=== PATIENT | female | born 1955 | race Caucasian/White ===

== ENCOUNTER 2016-11-27 19:29 | Emergency (ER) | payer MEDICAID ==
--- NOTE | 2016-11-27 20:22 | EDM.PDOC ---
ED HPI GI/ABDOMINAL - General Chief Complaint: Abdominal Pain Stated Complaint: LEFT SIDE PAIN Time Seen by Provider: 11/27/16 19:45 Source of Information: Reports: Patient History Limitations: Reports: No limitations - History of Present Illness INITIAL COMMENTS - FREE TEXT/NARRATIVE: Shraddha is a 61yo female presents ambulatory to ER [facility] with worsening LUQ and LLQ abdominal pain x 3-4 days. She has been moving boxes into her apartment the past week; been lifting, carrying. She feels more pain when she is up and walking and with standing upright. She has hx of kidney stones. Denies flank pain, urinary problems such as dysuria, hematuria, frequency or urgency. No f/c/ s, n/v/d. States she has 1-2 BM's daily with last being this morning. She has good and "usual" appetite. States she drinks "lots of water and tea" throughout the day. No hx of PUD, gerd, diverticulitis/osis or other GI problems. She has hx of fibromyalgia and does smoke cigarettes, 1/2 pack per day. Timing/Duration: Reports: Day(s): (2-3) Location: LLQ Quality: Reports: cramping, stabbing Severity: moderate Improves with: Reports: lying down Worsens with: Reports: other (walking, moving around) Context: Reports: lifting (? has been moving into apartment the last 5 days; more lifting, pushing and carrying than usual) Associated Symptoms (-Female): Reports: loss of appetite. 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 SURGEON: Reports: Other (see below) (None) - Related Data Allergies/ADRs: Allergies Allergy/AdvReac Type Severity Reaction Status Date / Time codeine Allergy Hives Verified 05/10/16 13:53 Penicillins Allergy Hives Verified 05/10/16 13:53 Home Meds: Home Meds Nitroglycerin [Nitrostat] 0.4 mg SL ASDIRECTED PRN 02/28/15 [History] Albuterol [Ventolin 2 MG/5 ML] 1 - 2 puff INH Q4H PRN 05/10/15 [History] ClonazePAM [KlonoPIN] 1 mg PO BID 05/10/15 [History] Omeprazole 20 mg PO DAILY 05/10/15 [History] Sertraline [Zoloft] 100 mg PO DAILY 05/08/16 [History] Cyclobenzaprine [Flexeril] 10 mg PO DAILY PRN 11/27/16 [History] Past Medical History HEENT History: Reports: Impaired vision Other HEENT History: hole in sinus, wears contacts. Cardiovascular History: Reports: Other (see below) Other Cardiovascular History: states has NTG available for chest pain, no other cardiac Hx. 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 OB/BYN History: Pelvic surgery--hole in pelvic bone Musculoskeletal History: Reports: Fibromyalgia Psychiatric History: Reports: Anxiety - Infectious Disease History Infectious Disease History: Reports: Hepatitis C - Past Surgical History Female Surgical History: Reports: Tubal ligation Musculoskeletal Surgical History: Reports: Other (see below) Other Musculoskeletal Surgeries/Procedures:: scoliosis Social & Family History - Family History Family Medical History: Noncontributory - Tobacco Use Smoking Status *Q: Current Every Day Smoker Years of Tobacco use: 30 Packs/Tins Daily: 1 Used Tobacco, but Quit: No Second Hand Smoke Exposure: Yes - Caffeine Use Caffeine Use: Reports: Coffee - Recreational Drug Use Recreational Drug Use: Yes Drug Use in Last 12 Months: No Recreational Drug Type: Reports: Marijuana/Hashish Recreational Drug Use Frequency: Socially Recreational Drug Last Use: 04/19/16 - Living Situation & Occupation Living situation: Reports: , with spouse ED ROS GENERAL - Review of Systems Review Of Systems: See Below Constitutional: Reports: no symptoms HEENT: Reports: No symptoms Respiratory: Reports: No Symptoms. Denies: Shortness of Breath, Cough Cardiovascular: Reports: No symptoms. Denies: Chest pain, Dyspnea on exertion, Palpitations GI/Abdominal: Reports: Abdominal pain, Decreased appetite, Distension, Other ( last BM was this morning; sharp intermittent pains worse when she is up and moving around). Denies: Black stool, Bloody stool, Constipation, Diarrhea, Hematemesis, Hematochezia, Melena, Mucous in stool, Nausea, Stool incontinence, Vomiting : Reports: no symptoms, other (hx of kidney stones). Denies: dysuria, flank pain, frequency, hematuria, urgency Musculoskeletal: Reports: no symptoms Neurological: Reports: No Symptoms ED EXAM, GI/ABD - Physical Exam Exam: See Below Exam Limited By: No limitations General Appearance: alert, WD/WN, no apparent distress Eyes: bilateral: EOMI Ears: normal external exam, hearing grossly normal Nose: normal inspection Throat/Mouth: Normal inspection, Normal lips, Normal teeth, Normal voice Head: atraumatic, normocephalic Neck: normal inspection, supple Respiratory/Chest: no respiratory distress, lungs clear, normal breath sounds ( decreased to bases) Cardiovascular: regular rate, rhythm, no edema, no murmur GI/Abdominal: no organomegaly, no mass, hypoactive bowel sounds, tenderness ( diffuse, worse to LUQ and LLQ), distention (worse to left side). No: guarding, rebound, rigidity, hepatomegaly, splenomegaly (Female) Exam: Deferred Rectal (Female) Exam: Deferred Back Exam: normal inspection. No: CVA tenderness (L), CVA tenderness (R), paraspinal tenderness, vertebral tenderness Extremities: normal inspection, no pedal edema, normal capillary refill Neurological: alert, oriented, CN II-XII intact, normal cognition Psychiatric: normal affect, normal mood Skin Exam: Warm, Dry, Intact, Normal color Course - Vital Signs Last Recorded V/S: Last Vital Signs Temp 98.3 F 11/27/16 19:39 Pulse 95 11/27/16 19:39 Resp 18 11/27/16 19:39 BP 152/81 H 11/27/16 19:39 Pulse Ox 95 11/27/16 19:39 - Orders/Labs/Meds Orders: Active Orders 24 hr Category Date Time Status Abdomen 2V AP Flat Upright [CR] Stat Exams 11/27/16 21:24 Taken Labs: Laboratory Tests 11/27/16 11/27/16 11/27/16 Range/Units 19:55 19:55 20:50 WBC 8.41 (3.98-10.04) K/mm3 RBC 4.28 (3.98-5.22) M/mm3 Hgb 12.7 (11.2-15.7) gm/L Hct 36.1 (34.1-44.9) % MCV 84.3 (79.4-94.8) fl MCH 29.7 (25.6-32.2) pg MCHC 35.2 (32.2-35.5) g/dl RDW Std Deviation 47.2 H (36.4-46.3) fL Plt Count 161 L (182-369) K/mm3 MPV 10.6 (9.4-12.3) fl Neut % (Auto) 60.9 (34.0-71.1) % Lymph % (Auto) 27.2 (19.3-51.7) % [place] % (Auto) 7.5 (4.7-12.5) % Eos % (Auto) 3.2 (0.7-5.8) Baso % (Auto) 0.8 (0.1-1.2) % Neut # (Auto) 5.12 (1.56-6.13) K/mm3 Lymph # (Auto) 2.29 (1.18-3.74) K/mm3 [place] # (Auto) 0.63 H (0.24-0.36) K/mm3 Eos # (Auto) 0.27 (0.04-0.36) K/mm3 Baso # (Auto) 0.07 (0.01-0.08) K/mm3 Sodium 142 (136-145) mEq/L Potassium 4.1 (3.5-5.1) mEq/L Chloride 106 (98-107) mEq/L Carbon Dioxide 26 (21-32) mEq/L Anion Gap 14.1 (5-15) BUN 17 (7-18) mg/dL Creatinine 1.0 (0.55-1.02) mg/dL Est Cr Clr Drug Dosing 43.51 mL/min Estimated GFR (MDRD) 57 (>60) mL/min BUN/Creatinine Ratio 17.0 (14-18) Glucose 137 H (74-106) mg/dL Calcium 9.4 (8.5-10.1) mg/dL Total Bilirubin 0.2 (0.2-1.0) mg/dL AST 7 L (15-37) U/L ALT 15 (14-59) U/L Alkaline Phosphatase 109 (46-116) U/L Total Protein 7.6 (6.4-8.2) g/dl Albumin 4.0 (3.4-5.0) g/dl Globulin 3.6 gm/dL Albumin/Globulin Ratio 1.1 (1-2) Urine Color Light yellow (Yellow) Urine Appearance Clear (Clear) Urine pH 5.5 (5.0-8.0) Ur Specific [place] > or = 1.030 (1.005-1.030) Urine Protein Negative (Negative) Urine Glucose (UA) Negative (Negative) Urine Ketones Negative (Negative) Urine Occult Blood Negative (Negative) Urine Nitrite Negative (Negative) Urine Bilirubin Negative (Negative) Urine Urobilinogen 0.2 (0.2-1.0) Ur Leukocyte Esterase Trace H (Negative) Urine RBC 0-5 (0-5) /hpf Urine WBC 5-10 H (0-5) /hpf Ur Epithelial Cells 0-5 (0-5) /hpf Urine Bacteria Few (FEW) /hpf Urine Mucus Not seen (FEW) /hpf Meds: Medications Discontinued Medications Generic Name Dose Route Start Last Admin Trade Name Freq PRN Reason Stop Dose Admin Ketorolac Tromethamine 30 mg 11/27/16 22:13 Toradol IVPUSH 11/27/16 22:14 ONETIME ONE Metoclopramide HCl 10 mg 11/27/16 22:13 Reglan IVPUSH 11/27/16 22:14 ONETIME ONE - Radiology Interpretation Free Text/Narrative:: 2 view of abdomen obtained: review shows increased stool throughout entire colon , most pronounced to left colon. Consistent with constipation. Will await [facility] final report. - Re-Assessments/Exams Free Text/Narrative Re-Assessment/Exam: 11/27/16 22:25 Reviewed all labs- essentially normal and xray findings with patient and . Reviewed POC for tx of constipation. Will culture urine but patient is asymptomatic so elect no treatment at this time. Departure - Departure Time of Disposition: 22:14 Disposition: Home, Self-Care 01 Condition: good Clinical Impression: Constipation Qualifiers: Constipation type: unspecified constipation type Qualified Code(s): K59.00 - Constipation, unspecified Abdominal pain Qualifiers: Abdominal location: left lower quadrant Qualified Code(s): R10.32 - Left lower quadrant pain Instructions: Constipation, Adult, [id number], Abdominal Pain, Adult, Easy-to -Read Referrals: Omayra Weston PL[facility]ER [Primary Care Provider] - Forms: ED Department Discharge Additional Instructions: Use dulcolax daily to twice daily for constipation Push fluids Increase fiber in your diet Exercise/walking can be helpful for constipation Can use milk of magnesia if needed for constipation also Follow up with PCP, SUSANA Clifton if not improving or worsening - My Orders Last 24 Hours: My Active Orders 11/27/16 21:24 Abdomen 2V AP Flat Upright [CR] Stat - Assessment/Plan Last 24 Hours: My Active Orders 11/27/16 21:24 Abdomen 2V AP Flat Upright [CR] Stat
[2016-11-27] MEDS ORDERED: Metoclopramide 10 MG/2 ML SDV IVPUSH ONE (22:13)
[2016-11-27] MEDS ORDERED: Ketorolac 30 MG/ML SDV IVPUSH ONE (22:13)
[2016-11-27 22:38] VITALS: BP 122/68
--- NOTE | 2016-11-29 06:52 | CR ---
Abdomen: Supine and upright views of the abdomen were obtained. Comparison: No previous abdominal x-ray. Mild scoliosis is present within the spine. Slight increased stool seen throughout the colon. Bowel gas pattern is otherwise unremarkable. No free air is seen. No abnormal calcifications are seen. Mild vascular calcification noted within the iliac vessels. Impression: 1. Mild increased stool within the colon. Other incidental findings. Diagnostic code #2
== END 2016-11-27 22:30 | disposition home or self-care (01) ==
LOC: JD.ED 19:29
DX: K59.00 Constipation, unspecified (principal); J44.9 Chronic obstructive pulmonary disease, unspecified; K21.9 Gastro-esophageal reflux disease without esophagitis; F41.9 Anxiety disorder, unspecified; Z79.899 Other long term (current) drug therapy; F17.210 Nicotine dependence, cigarettes, uncomplicated; Z88.0 Allergy status to penicillin; Z88.5 Allergy status to narcotic agent
CPT/HCPCS: 36415; 74020; 80053; 81001; 85025; 87086; 96374; 96375; 99284; J1885; J2765

== ENCOUNTER 2016-12-03 10:35 | Emergency (ER) | payer MEDICAID ==
[2016-12-03 10:45] VITALS: BP 122/81
--- NOTE | 2016-12-03 11:19 | EDM.PDOC ---
ED HPI GI/ABDOMINAL - General Chief Complaint: Abdominal Pain Stated Complaint: L SIDE ABDOMINAL PAIN Time Seen by Provider: 12/03/16 11:18 Source of Information: Reports: Patient - History of Present Illness INITIAL COMMENTS - FREE TEXT/NARRATIVE: Patient here today for persistent LUQ pain. Denies N/V/D. She was evaluated last week and diagnosed with constipation per her report. She has been on stool softeners and had normal BM, last one was this am and soft/normal. She has been more physically active lately as well, they recently moved. - Related Data Allergies/ADRs: Allergies Allergy/AdvReac Type Severity Reaction Status Date / Time codeine Allergy Hives Verified 12/03/16 10:41 Penicillins Allergy Hives Verified 12/03/16 10:41 Home Meds: Home Meds Nitroglycerin [Nitrostat] 0.4 mg SL ASDIRECTED PRN 02/28/15 [History] Albuterol [Ventolin 2 MG/5 ML] 1 - 2 puff INH Q4H PRN 05/10/15 [History] ClonazePAM [KlonoPIN] 1 mg PO BID 05/10/15 [History] Omeprazole 20 mg PO DAILY 05/10/15 [History] Sertraline [Zoloft] 100 mg PO DAILY 05/08/16 [History] Cyclobenzaprine [Flexeril] 10 mg PO DAILY PRN 11/27/16 [History] Hydrocodone/Acetaminophen [Hydrocodon-Acetaminophen 5-325] 1 each PO Q6HR PRN # 20 tablet 12/03/16 [Rx] Past Medical History HEENT History: Reports: Impaired vision Other HEENT History: hole in sinus, wears contacts. Cardiovascular History: Reports: Other (see below) Other Cardiovascular History: states has NTG available for chest pain, no other cardiac Hx. 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 OB/BYN History: Pelvic surgery--hole in pelvic bone Musculoskeletal History: Reports: Fibromyalgia Psychiatric History: Reports: Anxiety - Infectious Disease History Infectious Disease History: Reports: Hepatitis C - Past Surgical History Female Surgical History: Reports: Tubal ligation Musculoskeletal Surgical History: Reports: Other (see below) Other Musculoskeletal Surgeries/Procedures:: scoliosis Social & Family History - Family History Family Medical History: Noncontributory - Tobacco Use Smoking Status *Q: Current Every Day Smoker Years of Tobacco use: 30 Packs/Tins Daily: 1 Used Tobacco, but Quit: No Second Hand Smoke Exposure: Yes - Caffeine Use Caffeine Use: Reports: Coffee - Recreational Drug Use Recreational Drug Use: Yes Drug Use in Last 12 Months: No Recreational Drug Type: Reports: Marijuana/Hashish Recreational Drug Use Frequency: Socially Recreational Drug Last Use: 04/19/16 - Living Situation & Occupation Living situation: Reports: , with spouse ED ROS GENERAL - Review of Systems Review Of Systems: See Below Constitutional: Reports: no symptoms Respiratory: Reports: No Symptoms Cardiovascular: Reports: No symptoms GI/Abdominal: Reports: Abdominal pain, Flatus. Denies: Constipation, Diarrhea, Decreased appetite, Hematemesis, Hematochezia, Melena Musculoskeletal: Reports: other (left rib pain) ED EXAM, GI/ABD - Physical Exam Exam: See Below Exam Limited By: No limitations General Appearance: alert, WD/WN, no apparent distress Ears: normal external exam, normal canal, normal TMs Throat/Mouth: Normal inspection, Normal oropharynx Neck: normal inspection Respiratory/Chest: no respiratory distress, lungs clear, normal breath sounds, other (Tenderness (mild) to left lower ribs/flank.) Cardiovascular: regular rate, rhythm, no murmur GI/Abdominal: normal bowel sounds, soft, other (Moderate epigastric and left abdominal pain.) Neurological: alert, oriented Psychiatric: normal affect, normal mood Skin Exam: Warm, Dry, Intact Course - Vital Signs Last Recorded V/S: Last Vital Signs Temp 98.5 F 12/03/16 10:42 Pulse 78 12/03/16 10:42 Resp 18 12/03/16 10:42 BP 122/81 12/03/16 10:42 Pulse Ox 96 12/03/16 10:42 - Orders/Labs/Meds Orders: Active Orders 24 hr Category Date Time Status Chest 2V [CR] Stat Exams 12/03/16 13:56 Taken Sodium Chloride 0.9% [Normal Saline] 1,000 ml Med 12/03/16 11:32 Active IV ONETIME Sodium Chloride 0.9% [Saline Flush] Med 12/03/16 14:38 Active 10 ml FLUSH ONETIME PRN Medication Orders Sodium Chloride (Normal Saline) 1,000 mls @ 150 mls/hr IV ONETIME ONE Stop: 12/03/16 18:11 Last Admin: 12/03/16 12:21 Dose: 150 mls/hr Sodium Chloride (Saline Flush) 10 ml FLUSH ONETIME PRN PRN Reason: IV FLUSH Last Admin: 12/03/16 15:22 Dose: 10 ml Admin: 12/03/16 15:00 Dose: 10 ml Labs: Laboratory Tests 12/03/16 12/03/16 12/03/16 Range/Units 11:20 12:30 12:30 WBC 10.62 H (3.98-10.04) K/mm3 RBC 5.09 (3.98-5.22) M/mm3 Hgb 15.0 (11.2-15.7) gm/L Hct 43.8 (34.1-44.9) % MCV 86.1 (79.4-94.8) fl MCH 29.5 (25.6-32.2) pg MCHC 34.2 (32.2-35.5) g/dl RDW Std Deviation 50.4 H (36.4-46.3) fL Plt Count 99 L (182-369) K/mm3 MPV 10.3 (9.4-12.3) fl Neutrophils % (Manual) 83 H (40-60) % Band Neutrophils % 0 (0-10) % Lymphocytes % (Manual) 14 L (20-40) % Atypical Lymphs % 0 % Monocytes % (Manual) 2 (2-10) % Eosinophils % (Manual) 1 (0.7-5.8) % Basophils % (Manual) 0 L (0.1-1.2) Platelet Estimate Decreased Plt Morphology Comment See note RBC Morph Comment Normal Sodium 136 (136-145) mEq/L Potassium 4.5 (3.5-5.1) mEq/L Chloride 101 (98-107) mEq/L Carbon Dioxide 27 (21-32) mEq/L Anion Gap 12.5 (5-15) BUN 16 (7-18) mg/dL Creatinine 0.9 (0.55-1.02) mg/dL Est Cr Clr Drug Dosing TNP Estimated GFR (MDRD) > 60 (>60) mL/min BUN/Creatinine Ratio 17.8 (14-18) Glucose 100 (74-106) mg/dL Calcium 9.7 (8.5-10.1) mg/dL Total Bilirubin 0.6 (0.2-1.0) mg/dL AST 15 (15-37) U/L ALT 17 (14-59) U/L Alkaline Phosphatase 102 (46-116) U/L Troponin I < 0.017 (0.00-0.056) ng/mL C-Reactive Protein 0.4 (<1.0) mg/dL Total Protein 8.5 H (6.4-8.2) g/dl Albumin 4.6 (3.4-5.0) g/dl Globulin 3.9 gm/dL Albumin/Globulin Ratio 1.2 (1-2) Lipase 109 (73-393) U/L Urine Color Yellow (Yellow) Urine Appearance Clear (Clear) Urine pH 6.0 (5.0-8.0) Ur Specific [place] 1.020 (1.005-1.030) Urine Protein Negative (Negative) Urine Glucose (UA) Negative (Negative) Urine Ketones Negative (Negative) Urine Occult Blood Negative (Negative) Urine Nitrite Negative (Negative) Urine Bilirubin Negative (Negative) Urine Urobilinogen 0.2 (0.2-1.0) Ur Leukocyte Esterase Trace H (Negative) Urine RBC 0-5 (0-5) /hpf Urine WBC 5-10 H (0-5) /hpf Ur Squamous Epith Cells 0-5 (0-5) /hpf Urine Bacteria Few (FEW) /hpf Urine Mucus Not seen (FEW) /hpf Meds: Medications Generic Name Dose Route Start Last Admin Trade Name Freq PRN Reason Stop Dose Admin Sodium Chloride 1,000 mls @ 150 mls/hr 12/03/16 11:32 12/03/16 12:21 Normal Saline IV 12/03/16 18:11 150 mls/hr ONETIME ONE Administration Sodium Chloride 10 ml 12/03/16 14:38 12/03/16 15:22 Saline Flush FLUSH 10 ml ONETIME PRN Administration IV FLUSH Discontinued Medications Generic Name Dose Route Start Last Admin Trade Name Freq PRN Reason Stop Dose Admin Al Hydroxide/Mg Hydroxide 30 0 ml 12/03/16 11:38 12/03/16 12:21 ml/ Lidocaine HCl 15 ml PO 12/03/16 11:39 45 ml ONETIME ONE Administration Diatrizoate Meglum/Diatrizoate Sod 90 ml 12/03/16 14:38 12/03/16 15:22 Gastrografin 37% PO 12/03/16 14:39 90 ml ONETIME ONE Administration Hydromorphone HCl 0.5 mg 12/03/16 12:53 12/03/16 13:46 Dilaudid IVPUSH 12/03/16 12:54 0.5 mg ONETIME ONE Administration Iopamidol 100 ml 12/03/16 14:38 12/03/16 15:22 Isovue-300 (61%) IVPUSH 12/03/16 14:39 100 ml ONETIME ONE Administration - Re-Assessments/Exams Free Text/Narrative Re-Assessment/Exam: Patient with LUQ/side pain for over a week. Labwork normal. CT with mild bowel wall thickening in jejunum, did have normal colonoscopy recently per her report. Does have significant retained stool on CT as well. Discussed dietary recommendations and will have her take magnesium citrate for her constipation and she will continue stool softener. Rib pain musculoskeletal, likely due to overuse from their recent move as she was lifting heavy objects. She can take ibuprofen for this, she is requesting other pain medication will give small quantity of hydrocodone. She is to follow-up with PCP next week or certainly back to ER if any worsening. 12/03/16 16:24 Departure - Departure Time of Disposition: 16:17 Disposition: Home, Self-Care 01 Condition: fair Clinical Impression: Rib pain on right side Constipation Qualifiers: Constipation type: unspecified constipation type Qualified Code(s): K59.00 - Constipation, unspecified Prescriptions: Hydrocodone/Acetaminophen [Hydrocodon-Acetaminophen 5-325] 1 each PO Q6HR PRN # 20 tablet PRN Reason: Pain Forms: ED Department Discharge Additional Instructions: Continue high-fiber foods and lots of water. I recommend probiotic or 2 low-sugar yogurts per day. Drink 1/2 bottle magnesium citrate today, repeat this tomorrow morning. Ibuprofen as needed for rib/side pain. Follow-up with your PCP next week or you may certainly return to ER if needed. - My Orders Last 24 Hours: My Active Orders 12/03/16 11:32 Sodium Chloride 0.9% [Normal Saline] 1,000 ml IV ONETIME 12/03/16 13:56 Chest 2V [CR] Stat 12/03/16 14:38 Sodium Chloride 0.9% [Saline Flush] 10 ml FLUSH ONETIME PRN - Assessment/Plan Last 24 Hours: My Active Orders 12/03/16 11:32 Sodium Chloride 0.9% [Normal Saline] 1,000 ml IV ONETIME 12/03/16 13:56 Chest 2V [CR] Stat 12/03/16 14:38 Sodium Chloride 0.9% [Saline Flush] 10 ml FLUSH ONETIME PRN
[2016-12-03] MEDS ORDERED: Sodium Chloride 0.9% 1,000 ML IV ONE (11:32)
[2016-12-03] MEDS ORDERED: Alum Hydrox/Mag Hydrox/Simeth 30 ML, Lidocaine 2% 15 ML PO ONE ×2 (11:38)
[2016-12-03] MEDS ORDERED: HYDROmorphone 0.5 MG/0.5 ML Syringe IVPUSH ONE (12:53)
[2016-12-03] MEDS ORDERED: Iopamidol 612 MG/ML 100 ML Bottle IVPUSH ONE (14:38)
[2016-12-03] MEDS ORDERED: Diatrizoate Meglumine/Diatrizoate Sodium 37% 120 ML Bottle PO ONE (14:38)
[2016-12-03] MEDS: Sodium Chloride 0.9% 10 ML Syringe FLUSH PRN ×2 (15:00→15:22)
--- NOTE | 2016-12-03 15:53 | CT ---
CT abdomen and pelvis Technique: Multiple axial sections were obtained from above the dome of the diaphragm inferiorly through the pubic symphysis. Intravenous and oral contrast have been given. Delayed images were also obtained through the bladder. Findings: Small portion of the visualized lung bases shows nothing acute. Liver shows no focal parenchymal abnormality. Spleen is slightly generous in size measuring 13.9 cm in length. Gallbladder is somewhat distended and shows no calcified gallstones. Pancreas is within normal limits. Aorta shows atherosclerotic change which continues into the iliac vessels. No aneurysm is seen. Kidneys show symmetric contrast enhancement without hydronephrosis. Small parapelvic cyst is identified within the mid left kidney measuring approximately 1.2 cm. There is some small bowel wall thickening being seen within the left abdomen within jejunal. No pelvic mass or adenopathy is seen. No free fluid is seen. No inflammatory change is identified. Appendix is not seen. Delayed images shows contrast within the distal ureters and within the bladder. Bone window settings were reviewed which shows degenerative change primarily within the apophyseal joints at L4-L5. Impression: 1. Mild splenomegaly which is nonspecific. 2. Slightly distended gallbladder with no calcified gallstones. This may relate to fasting if patient has no gallbladder symptoms. 3. Mild bowel wall thickening seen within portions of jejunum within the left abdomen compatible with nonspecific enteritis. 4. Other incidental findings as noted above. Diagnostic code #3
--- NOTE | 2016-12-05 09:27 | CR ---
Chest: Two views of the chest were obtained. Comparison: Previous chest x-ray of 02/28/15. Heart size and mediastinum are normal. Lungs are clear with no acute infiltrates. Bony structures are unremarkable. No free air is seen. Impression: 1. Nothing acute is identified on two-view chest x-ray. Diagnostic code #1
== END 2016-12-03 16:41 | disposition home or self-care (01) ==
LOC: JD.ED 10:35
DX: R07.81 Pleurodynia (principal); K59.00 Constipation, unspecified; H54.7 Unspecified visual loss; F17.210 Nicotine dependence, cigarettes, uncomplicated; Z88.5 Allergy status to narcotic agent; Z88.0 Allergy status to penicillin; Z79.899 Other long term (current) drug therapy
CPT/HCPCS: 36415; 71020; 74177; 80053; 81001; 83690; 84484; 85025; 86140; 96361; 96374; 99285; A9270; J1170; J7040; J7050; Q9963; Q9967; 99284

== ENCOUNTER 2017-07-11 14:28 | Emergency (ER) | payer MEDICAID ==
[2017-07-11 15:23] VITALS: BP 129/90
[2017-07-11] MEDS ORDERED: Albuterol/Ipratropium 3.0-0.5 MG/3 ML Neb Soln NEB ONE (15:52)
--- NOTE | 2017-07-11 17:14 | EDM.PDOC ---
ED HPI GENERAL MEDICAL PROBLEM - General Chief Complaint: Respiratory Problem Stated Complaint: FLU LIKE SYMPTOMS Time Seen by Provider: 07/11/17 15:06 Source of Information: Reports: Patient, RN Notes Reviewed - History of Present Illness INITIAL COMMENTS - FREE TEXT/NARRATIVE: 61-year-old lady comes in with cough congestion and shortness of breath. She does have a chronic cough with history of COPD and has continued smoking up until recently. Office now become "so bad that she can't smoke". She's had some chills, no definite fever. Cough has been productive of colored phlegm. She also does have nasal and sinus congestion with some drainage. She does have a handheld inhaler that she has been using at home. She does get more short of breath with any type of exertion. 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: day perea Generalized Pain Score (Numeric/FACES): 8 - Related Data Allergies Allergy/AdvReac Type Severity Reaction Status Date / Time codeine Allergy Hives Verified 07/11/17 15:16 Penicillins Allergy Hives Verified 07/11/17 15:16 Home Meds: Home Meds Nitroglycerin [Nitrostat] 0.4 mg SL ASDIRECTED PRN 02/28/15 [History] Albuterol [Ventolin 2 MG/5 ML] 1 - 2 puff INH Q4H PRN 05/10/15 [History] ClonazePAM [KlonoPIN] 1 mg PO BID 05/10/15 [History] Omeprazole 20 mg PO DAILY 05/10/15 [History] Sertraline [Zoloft] 100 mg PO DAILY 05/08/16 [History] Cyclobenzaprine [Flexeril] 10 mg PO DAILY PRN 11/27/16 [History] Benzonatate 200 mg PO TID PRN 07/11/17 [History] Doxycycline [Vibramycin] 100 mg PO BID #14 tablet 07/11/17 [Rx] Past Medical History HEENT History: Reports: Impaired Vision Other HEENT History: hole in sinus, wears contacts. Cardiovascular History: Reports: Other (See Below) Other Cardiovascular History: states has NTG available for chest pain, no other cardiac Hx. 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 OB/BYN History: Pelvic surgery--hole in pelvic bone Musculoskeletal History: Reports: Fibromyalgia Psychiatric History: Reports: Anxiety, Depression - Infectious Disease History Infectious Disease History: Reports: Hepatitis C - Past Surgical History Female Surgical History: Reports: Tubal Ligation Musculoskeletal Surgical History: Reports: Other (See Below) Social & Family History - Family History Family Medical History: Noncontributory - Tobacco Use Smoking Status *Q: Current Every Day Smoker Years of Tobacco use: 40 Packs/Tins Daily: 0.5 Used Tobacco, but Quit: No Second Hand Smoke Exposure: Yes - Caffeine Use Caffeine Use: Reports: Coffee - Recreational Drug Use Recreational Drug Use: Yes Drug Use in Last 12 Months: Yes Recreational Drug Type: Reports: Marijuana/Hashish Recreational Drug Use Frequency: Socially Recreational Drug Last Use: 04/19/16 - Living Situation & Occupation Living situation: Reports: , with Spouse ED ROS GENERAL - Review of Systems Review Of Systems: See Below Constitutional: Reports: Chills. Denies: Fever HEENT: Reports: No Symptoms Respiratory: Reports: Shortness of Breath, Cough, Sputum. Denies: Hemoptysis Cardiovascular: Reports: Chest Pain GI/Abdominal: Reports: Nausea (Occasional). Denies: Abdominal Pain (With coughing), Vomiting Musculoskeletal: Denies: Shoulder Pain, Arm Pain Skin: Reports: No Symptoms Neurological: Reports: No Symptoms ED EXAM, GENERAL - Physical Exam Exam: See Below General Appearance: Alert, Other (Frequent mostly nonproductive cough) Eye Exam: Bilateral Eye: PERRL Throat/Mouth: Normal Inspection, Normal Oropharynx Head: Atraumatic Neck: Supple, Other (No JVD). No: Lymphadenopathy (L), Lymphadenopathy (R) Respiratory/Chest: Respiratory Distress, Wheezing. No: Rales (Mild), Rhonchi ( Mild tachypnea) Cardiovascular: Regular Rate, Rhythm GI/Abdominal: Soft, Non-Tender Back Exam: No: CVA Tenderness (L), CVA Tenderness (R) Extremities: No: Pedal Edema, Leg Pain Neurological: Alert, Oriented, No Motor/Sensory Deficits Skin Exam: Warm, Dry, Normal Color Course - Vital Signs Last Recorded V/S: Last Vital Signs Temp 96.7 F 07/11/17 15:19 Pulse 97 07/11/17 15:19 Resp 20 07/11/17 15:19 BP 129/90 07/11/17 15:19 Pulse Ox 96 07/11/17 16:01 - Orders/Labs/Meds Orders: Active Orders 24 hr Category Date Time Status RT Aerosol Therapy [RC] ASDIRECTED Care 07/11/17 15:52 Active Chest 1V Frontal [CR] Stat Exams 07/11/17 15:52 Taken Labs: Laboratory Tests 07/11/17 Range/Units 16:10 WBC 8.75 (3.98-10.04) K/mm3 RBC 4.45 (3.98-5.22) M/mm3 Hgb 13.0 (11.2-15.7) gm/L Hct 37.4 (34.1-44.9) % MCV 84.0 (79.4-94.8) fl MCH 29.2 (25.6-32.2) pg MCHC 34.8 (32.2-35.5) g/dl RDW Std Deviation 48.6 H (36.4-46.3) fL Plt Count 196 (182-369) K/mm3 MPV 10.3 (9.4-12.3) fl Neut % (Auto) 62.5 (34.0-71.1) % Lymph % (Auto) 27.9 (19.3-51.7) % [place] % (Auto) 5.8 (4.7-12.5) % Eos % (Auto) 2.1 (0.7-5.8) Baso % (Auto) 1.4 H (0.1-1.2) % Neut # (Auto) 5.47 (1.56-6.13) K/mm3 Lymph # (Auto) 2.44 (1.18-3.74) K/mm3 [place] # (Auto) 0.51 H (0.24-0.36) K/mm3 Eos # (Auto) 0.18 (0.04-0.36) K/mm3 Baso # (Auto) 0.12 H (0.01-0.08) K/mm3 Meds: Medications Discontinued Medications Generic Name Dose Route Start Last Admin Trade Name Freq PRN Reason Stop Dose Admin Albuterol/Ipratropium 3 ml 07/11/17 15:52 07/11/17 15:59 Duoneb 3.0-0.5 Mg/3 Ml NEB 07/11/17 15:53 3 ml ONETIME ONE Administration - Re-Assessments/Exams Free Text/Narrative Re-Assessment/Exam: 07/11/17 17:59 White blood count normal, chest x-ray does not show apparent infiltrate, discharge instructions as documented Departure - Departure Time of Disposition: 17:13 Disposition: Home, Self-Care 01 Condition: Fair Clinical Impression: Bronchitis - Discharge Information Prescriptions: Doxycycline [Vibramycin] 100 mg PO BID #14 tablet Instructions: Acute Bronchitis, [id number] Referrals: Omayra Weston, UTILITY REPAIRER [Primary Care Provider] - Forms: ED Department Discharge Additional Instructions: Doxycycline 100 mg twice daily, continue to not smoke, vaporizer or steam as needed, continue cough medication at night as needed to help you rest, follow- up with your regular provider if not much better within 5-7 days as expected, return to ED if symptoms worsening in any way - My Orders Last 24 Hours: My Active Orders 07/11/17 15:52 RT Aerosol Therapy [RC] ASDIRECTED Chest 1V Frontal [CR] Stat - Assessment/Plan Last 24 Hours: My Active Orders 07/11/17 15:52 RT Aerosol Therapy [RC] ASDIRECTED Chest 1V Frontal [CR] Stat
--- NOTE | 2017-07-12 07:47 | CR ---
Chest: Chest: Portable view of the chest was obtained. Comparison: Prior chest x-ray of 12/03/16. Heart size and mediastinum are normal. Lungs are clear. Bony structures shows mild scoliosis within the spine. Impression: 1. Nothing acute is identified on portable chest x-ray. Diagnostic code #2
== END 2017-07-11 17:40 | disposition home or self-care (01) ==
LOC: JD.ED 14:28
DX: J40 Bronchitis, not specified as acute or chronic (principal); K21.9 Gastro-esophageal reflux disease without esophagitis; F41.9 Anxiety disorder, unspecified; F32.9 Major depressive disorder, single episode, unspecified; F17.210 Nicotine dependence, cigarettes, uncomplicated; Z88.5 Allergy status to narcotic agent; Z88.0 Allergy status to penicillin; Z79.899 Other long term (current) drug therapy
CPT/HCPCS: 36415; 71010; 71010-26; 85025; 94640; 99284; 99284-25

== ENCOUNTER 2017-07-18 13:12 | Emergency (ER) | payer MEDICAID ==
[2017-07-18 13:35] VITALS: BP 144/88
[2017-07-18] MEDS ORDERED: Sodium Chloride 0.9% 1,000 ML IV ONE (14:11)
[2017-07-18] MEDS ORDERED: Ondansetron 4 MG/2 ML SDV IVPUSH ONE (14:11)
--- NOTE | 2017-07-18 14:48 | EDM.PDOC ---
ED HPI GENERAL MEDICAL PROBLEM - General Chief Complaint: Gastrointestinal Problem Stated Complaint: VOMITING/DIARRHEA Time Seen by Provider: 07/18/17 13:29 Source of Information: Reports: Patient, Old Records, RN Notes Reviewed History Limitations: Reports: No Limitations - History of Present Illness INITIAL COMMENTS - FREE TEXT/NARRATIVE: The patient was seen in this ED one week ago today, 07/11/2017, for complaint of acute-on chronic cough productive of colored phlegm, and dyspnea. She had had chills, but no fever. She reported nasal and sinus congestion with some drainage. Wheezing was heard on auscultation. Workup included a CBC, which was entirely normal, and a portable chest x-ray, which was unremarkable. The patient was diagnosed with bronchitis, and discharged home with a prescription for doxycycline 100 mg po BID, which the patient states she has been taking as prescribed. The patient was instructed to follow-up with her PCP, Rubia Weston. The patient now returns to the ED stating that she has continued to cough, and over the last 3 days, has had difficulty sleeping. She states she felt hot and cold last night. She had some nausea, but no emesis, and was able to eat this morning, but after eating she again developed chills and sweats, then had both vomiting and diarrhea. Generalized Pain Score (Numeric/FACES): 6 - Related Data Allergies Allergy/AdvReac Type Severity Reaction Status Date / Time codeine Allergy Hives Verified 07/18/17 13:24 Penicillins Allergy Hives Verified 07/18/17 13:24 Home Meds: Home Meds Nitroglycerin [Nitrostat] 0.4 mg SL ASDIRECTED PRN 02/28/15 [History] Albuterol [Ventolin 2 MG/5 ML] 1 - 2 puff INH Q4H PRN 05/10/15 [History] Omeprazole 20 mg PO DAILY 05/10/15 [History] Cyclobenzaprine [Flexeril] 10 mg PO DAILY PRN 11/27/16 [History] Doxycycline [Vibramycin] 100 mg PO BID #14 tablet 07/11/17 [Rx] Mirtazapine 15 mg PO BEDTIME PRN 07/18/17 [History] Venlafaxine HCl [Venlafaxine HCl ER] 150 mg PO DAILY 07/18/17 [History] hydrOXYzine HCl [Atarax] 25 mg PO Q4H PRN 07/18/17 [History] Past Medical History HEENT History: Reports: Impaired Vision Other HEENT History: wears contacts. 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: Musculoskeletal History: Reports: Fibromyalgia, Other (See Below) (Scoliosis) Psychiatric History: Reports: Anxiety, Depression, Other (See Below) (Insomnia) - Infectious Disease History Infectious Disease History: Reports: Hepatitis C - Past Surgical History Female Surgical History: Reports: Tubal Ligation Musculoskeletal Surgical History: Reports: Arthroscopic Knee (right), Other ( See Below) (Pelvis repair as a child) Social & Family History - Family History Family Medical History: Noncontributory - Tobacco Use Smoking Status *Q: Current Every Day Smoker Years of Tobacco use: 50 Packs/Tins Daily: 0.5 Packs/Tins Daily Comment: Down from 5 ppd - Caffeine Use Caffeine Use: Reports: Coffee - Alcohol Use Alcohol Use History: Yes Alcohol Use Frequency: Socially - Recreational Drug Use Recreational Drug Use: Yes Drug Use in Last 12 Months: Yes Recreational Drug Type: Reports: Marijuana/Hashish Recreational Drug Use Frequency: Daily - Living Situation & Occupation Living situation: Reports: , with Spouse Occupation: Unemployed ED ROS GENERAL - Review of Systems Review Of Systems: See Below Constitutional: Reports: Chills. Denies: Fever HEENT: Reports: Rhinitis Respiratory: Reports: Cough, Sputum (greenish) Cardiovascular: Reports: No Symptoms Endocrine: Reports: No Symptoms GI/Abdominal: Reports: Diarrhea, Nausea, Vomiting : Reports: No Symptoms Musculoskeletal: Reports: No Symptoms Skin: Reports: No Symptoms Neurological: Reports: No Symptoms Psychiatric: Reports: No Symptoms Hematologic/Lymphatic: Reports: No Symptoms Immunologic: Reports: No Symptoms ED EXAM, GENERAL - Physical Exam Exam: See Below Exam Limited By: No Limitations General Appearance: Alert, WD/WN, No Apparent Distress Eye Exam: Bilateral Eye: Normal Inspection Ears: Normal External Exam, Hearing Grossly Normal Nose: Normal Inspection, No Blood Throat/Mouth: Normal Inspection, Normal Lips, Normal Voice, No Airway Compromise Head: Atraumatic, Normocephalic Neck: Normal Inspection, Full Range of Motion Respiratory/Chest: No Respiratory Distress, Lungs Clear, Normal Breath Sounds, No Accessory Muscle Use. No: Crackles, Rales, Wheezing Cardiovascular: Normal Peripheral Pulses, Regular Rate, Rhythm, No Gallop, No JVD, No Murmur, No Rub Peripheral Pulses: 4+: Radial (L), Radial (R) GI/Abdominal: Normal Bowel Sounds, Soft, Non-Tender, No Organomegaly, No Distention, No Abnormal Bruit, No Mass (Female) Exam: Deferred Rectal (Female) Exam: Deferred Back Exam: Normal Inspection, Full Range of Motion, NT Extremities: Normal Inspection, Normal Range of Motion, No Pedal Edema, Normal Capillary Refill Neurological: Alert, Oriented, Normal Cognition, No Motor/Sensory Deficits Psychiatric: Normal Affect Skin Exam: Warm, Dry, Intact, Normal Color, No Rash Course - Vital Signs Last Recorded V/S: Last Vital Signs Temp 36.4 C 07/18/17 13:34 Pulse 85 07/18/17 13:34 Resp 16 07/18/17 13:34 BP 144/88 H 07/18/17 13:34 Pulse Ox 95 07/18/17 13:34 Orthostatic Blood Pressure [ 127/81 Standing] Orthostatic Blood Pressure [ 133/77 Supine] - Orders/Labs/Meds Orders: Active Orders 24 hr Category Date Time Status Orthostatic Vital Signs [RC] STAT Care 07/18/17 14:09 Active CULTURE BLOOD [BC] Stat Lab 07/18/17 14:48 Received CULTURE BLOOD [BC] Stat Lab 07/18/17 15:00 Received CULTURE STOOL + SHIGATOX [RM] Stat Lab 07/18/17 14:12 Uncollected NOROVIRUS GROUP 1 & 2 RT-PCR Stat Lab 07/18/17 14:13 Ordered ROTAVIRUS DIRECT ANTIGEN STOOL [OP] Stat Lab 07/18/17 14:12 Uncollected WBC, STOOL [OP] Stat Lab 07/18/17 14:12 Uncollected Blood Culture x2 Reflex Set [OM.PC] Stat Oth 07/18/17 14:11 Ordered Labs: Laboratory Tests 07/18/17 07/18/17 07/18/17 Range/Units 14:15 14:15 14:48 WBC 15.77 H (3.98-10.04) K/mm3 RBC 4.98 (3.98-5.22) M/mm3 Hgb 14.4 (11.2-15.7) gm/L Hct 42.0 (34.1-44.9) % MCV 84.3 (79.4-94.8) fl MCH 28.9 (25.6-32.2) pg MCHC 34.3 (32.2-35.5) g/dl RDW Std Deviation 50.1 H (36.4-46.3) fL Plt Count 194 (182-369) K/mm3 MPV 10.6 (9.4-12.3) fl Neutrophils % (Manual) 84 H (40-60) % Band Neutrophils % 0 (0-10) % Lymphocytes % (Manual) 13 L (20-40) % Atypical Lymphs % 0 % Monocytes % (Manual) 2 (2-10) % Eosinophils % (Manual) 1 (0.7-5.8) % Basophils % (Manual) 0 L (0.1-1.2) Platelet Estimate Adequate RBC Morph Comment Normal Sodium 138 (136-145) mEq/L Potassium 4.2 (3.5-5.1) mEq/L Chloride 104 (98-107) mEq/L Carbon Dioxide 23 (21-32) mEq/L Anion Gap 15.2 H (5-15) BUN 17 (7-18) mg/dL Creatinine 1.1 H (0.55-1.02) mg/dL Est Cr Clr Drug Dosing 39.55 mL/min Estimated GFR (MDRD) 51 (>60) mL/min BUN/Creatinine Ratio 15.5 (14-18) Glucose 182 H (74-106) mg/dL Lactic Acid 2.3 H (0.4-2.0) mmol/L Calcium 9.6 (8.5-10.1) mg/dL Magnesium 1.8 (1.8-2.4) mg/dl Total Bilirubin 0.5 (0.2-1.0) mg/dL AST 15 (15-37) U/L ALT 21 (14-59) U/L Alkaline Phosphatase 96 (46-116) U/L Total Protein 8.2 (6.4-8.2) g/dl Albumin 4.0 (3.4-5.0) g/dl Globulin 4.2 gm/dL Albumin/Globulin Ratio 1.0 (1-2) Meds: Medications Discontinued Medications Generic Name Dose Route Start Last Admin Trade Name Freq PRN Reason Stop Dose Admin Sodium Chloride 1,000 mls @ 999 mls/hr 07/18/17 14:11 07/18/17 14:23 Normal Saline IV 07/18/17 15:11 999 mls/hr ONETIME ONE Administration Ondansetron HCl 4 mg 07/18/17 14:11 07/18/17 14:25 Zofran IVPUSH 07/18/17 14:12 4 mg ONETIME ONE Administration - Re-Assessments/Exams Free Text/Narrative Re-Assessment/Exam: 07/18/17 14:49 Two-view chest radiograph appears to be grossly normal. Cardiac silhouette is within normal limits. No pulmonary vascular congestion. No pleural effusions. No focal infiltrate. No pneumothorax. Formal read per the Radiologist pending. 07/18/17 15:08 The patient is not orthostatic. 07/18/17 16:41 The patient states that she is feeling much better following 1 L of normal saline and 4 mg IV Zofran. I offered to write the patient a prescription for Zofran, but she declined. I discussed with her the finding of an elevated blood glucose of 182. I cannot determine at this time if she has prediabetes or real diabetes. I recommending that she follow-up with her PCP, Rubia Weston, for further evaluation and possible treatment. Departure - Departure Time of Disposition: 16:41 Disposition: Home, Self-Care 01 Condition: Good Clinical Impression: Gastroenteritis, Hyperglycemia - Discharge Information Referrals: Omayra Weston, TUFTING CREELER [Primary Care Provider] - Forms: ED Department Discharge Additional Instructions: You were seen in the emergency room for nausea, vomiting, and diarrhea. Workup in the ER included blood work, 2 sets of blood cultures, a chest x-ray, an influenza swab, and positional blood pressure checks. He received 1 L of IV fluid, and 4 mg Zofran, an anti-nausea medicine. Following the IV fluid and Zofran, you felt much better. Your symptoms are due to gastroenteritis, which are MOST LIKELY caused by a virus. You were offered a prescription for the anti-nausea medicine Zofran, but declined. We recommend that you stay well hydrated. Your blood sugar was found to be elevated at 182. You may have diabetes. We recommend that you follow-up with your PCP, Rubia Weston, for further evaluation. If any other problems, please do not hesitate to return to the ER. - My Orders Last 24 Hours: My Active Orders 07/18/17 14:09 Orthostatic Vital Signs [RC] STAT 07/18/17 14:11 Blood Culture x2 Reflex Set [OM.PC] Stat 07/18/17 14:12 CULTURE STOOL + SHIGATOX [RM] Stat ROTAVIRUS DIRECT ANTIGEN STOOL [OP] Stat WBC, STOOL [OP] Stat 07/18/17 14:13 NOROVIRUS GROUP 1 & 2 RT-PCR Stat 07/18/17 14:48 CULTURE BLOOD [BC] Stat 07/18/17 15:00 CULTURE BLOOD [BC] Stat - Assessment/Plan Last 24 Hours: My Active Orders 07/18/17 14:09 Orthostatic Vital Signs [RC] STAT 07/18/17 14:11 Blood Culture x2 Reflex Set [OM.PC] Stat 07/18/17 14:12 CULTURE STOOL + SHIGATOX [RM] Stat ROTAVIRUS DIRECT ANTIGEN STOOL [OP] Stat WBC, STOOL [OP] Stat 07/18/17 14:13 NOROVIRUS GROUP 1 & 2 RT-PCR Stat 07/18/17 14:48 CULTURE BLOOD [BC] Stat 07/18/17 15:00 CULTURE BLOOD [BC] Stat
--- NOTE | 2017-07-18 15:03 | CR ---
Chest: 2 views of the chest were obtained. Comparison: Previous chest x-ray of 07/11/17. Questionable nodule within the right upper chest is noted. This is most likely due to degenerative spurring at the costochondral junction of the first rib although this does is not well appreciated on prior chest x-ray. Lungs otherwise are clear. Heart size and mediastinum are normal. Bony structures appear within normal limits for the patient's age. Impression: 1. Questionable nodule within the right upper chest. This most likely represents costochondral calcification of first rib although noncontrast chest CT recommended to confirm. 2. Nothing acute is otherwise seen. Diagnostic code #9
== END 2017-07-18 17:55 | disposition home or self-care (01) ==
LOC: JD.ED 13:12
DX: K52.9 Noninfective gastroenteritis and colitis, unspecified (principal); R73.9 Hyperglycemia, unspecified; F17.210 Nicotine dependence, cigarettes, uncomplicated; Z88.5 Allergy status to narcotic agent; Z88.0 Allergy status to penicillin; Z79.899 Other long term (current) drug therapy
CPT/HCPCS: 36415; 71020; 80053; 83605; 83735; 85025; 87040; 87804; 96361; 96374; 99284; J2405; J7040

== ENCOUNTER 2017-11-17 11:00 | Emergency (ER) | payer MEDICAID ==
[2017-11-17 11:21] VITALS: BP 161/124
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
== END 2017-11-17 13:25 | disposition home or self-care (01) ==
LOC: JD.ED 11:00
DX: F41.9 Anxiety disorder, unspecified (principal); F43.9 Reaction to severe stress, unspecified; J44.9 Chronic obstructive pulmonary disease, unspecified; K21.9 Gastro-esophageal reflux disease without esophagitis; E66.9 Obesity, unspecified; F17.210 Nicotine dependence, cigarettes, uncomplicated; Z88.5 Allergy status to narcotic agent; Z88.0 Allergy status to penicillin; Z79.899 Other long term (current) drug therapy
CPT/HCPCS: 36415; 80053; 80306; 85025; 99283; G0480

== ENCOUNTER 2019-05-14 14:05 | Emergency (ER) | payer SELFPAY ==
[2019-05-14 14:15] VITALS: BP 151/93; PULSE 91
[2019-05-14] MEDS ORDERED: Promethazine 25 MG/ML SDV IM ONE (14:23)
[2019-05-14] MEDS ORDERED: HYDROmorphone 1 MG/ML Syringe IVPUSH ONE (14:23)
[2019-05-14] MEDS ORDERED: HYDROmorphone 1 MG/ML Syringe IM ONE (14:29)
--- NOTE | 2019-05-14 14:29 | EDM.PDOC ---
ED HPI GENERAL MEDICAL PROBLEM - General Chief Complaint: Neck Problem Stated Complaint: NECK PAIN Time Seen by Provider: 05/14/19 14:23 Source of Information: Reports: Patient History Limitations: Reports: No Limitations - History of Present Illness INITIAL COMMENTS - FREE TEXT/NARRATIVE: 63-year-old female presents to the ED with diffuse left-sided cervical neck pain that she awoke with around 0400 hrs. this morning. She states the pain radiates across her upper trapezius muscle towards her right shoulder but not down the arm to her hand. She states she's had this similar symptom occur multiple times in the past and it resolves completely in between suggesting no evidence of disc herniation. No recent fall or traumatic injury to the cervical spine. She states usually muscle relaxers and pain medicine and fixes her up. Rarely having a lot of spasms and no benefit from Flexeril tablets 2 overnight. Onset: Today Onset Date: 05/14/19 Onset Time: 04:00 Duration: Hour(s): Location: Reports: Neck Quality: Reports: Ache, Burning, Sharp, Stabbing, Other Severity: Moderate (Wrong spastic component to the pain) Improves with: Reports: None ( 8 out of 10) Worsens with: Reports: Movement Context: Denies: Activity, Exercise, Sick Contact, Trauma, Other Associated Symptoms: Reports: Cough, Malaise. Denies: No Other Symptoms, Confusion, Chest Pain, cough w sputum, Diaphoresis, Fever/Chills, Headaches, Loss of Appetite (Smoker's cough.), Nausea/Vomiting (Tiredness due to lack of sleep), Seizure, Shortness of Breath, Syncope, Weakness Treatments SHAKE FEEDER: Reports: NSAIDS, Other (see below) (Aleve when necessary Flexeril this morning 10 mg) Posterior Neck Pain Score (Numeric/FACES): 8 - Related Data Allergies Allergy/AdvReac Type Severity Reaction Status Date / Time codeine Allergy Hives Verified 05/14/19 14:15 Penicillins Allergy Hives Verified 05/14/19 14:15 Home Meds: Home Meds Cyclobenzaprine [Flexeril] 10 mg PO Q8H PRN #21 tab 05/14/19 [Rx] oxyCODONE HCl/Acetaminophen [Percocet 5-325 mg Tablet] 1 - 2 each PO Q4H PRN # 20 tablet 05/14/19 [Rx] predniSONE [Deltasone] 20 mg PO BID #10 tablet 05/14/19 [Rx] Past Medical History HEENT History: Reports: Impaired Vision Other HEENT History: wears contacts Cardiovascular History: Reports: Other (See Below) Other Cardiovascular History: states has NTG available for chest pain, no other cardiac Hx. Respiratory History: Reports: COPD Gastrointestinal History: Reports: Colon Polyp, Diverticulosis, GERD Other Gastrointestinal History: blood in stool for about 10 years Genitourinary History: Reports: Renal Calculus, Urinary Incontinence [employer] M[employer] OPERATOR History: Reports: Other [employer] M[employer] OPERATOR History: Pelvic surgery--hole in pelvic bone Musculoskeletal History: Reports: Back Pain, Chronic Neurological History: Reports: Other (See Below) Other Neuro History: fibromalgia Psychiatric History: Reports: Anxiety, Depression, Other (See Below) Endocrine/Metabolic History: Reports: Diabetes, Type II (Type 2 diabetes labeled as prediabetic and is supposed to be on metformin 500 mg twice a day but cannot afford the medicine at this time.), Obesity/BMI 30+ - Infectious Disease History Infectious Disease History: Reports: Hepatitis C - Past Surgical History GI Surgical History: Reports: Colonoscopy, EGD Female Surgical History: Reports: Tubal Ligation Musculoskeletal Surgical History: Reports: Arthroscopic Knee, Other (See Below) Social & Family History - Family History Family Medical History: Noncontributory - Tobacco Use Smoking Status *Q: Current Every Day Smoker Tobacco Use Within Last Twelve Months: Cigarettes Years of Tobacco use: 50 Packs/Tins Daily: 0.5 - Caffeine Use Caffeine Use: Reports: Coffee - Recreational Drug Use Recreational Drug Use: Yes Recreational Drug Type: Reports: Marijuana/Hashish - Living Situation & Occupation Living situation: Reports: , with Spouse Occupation: Unemployed ED ROS GENERAL - Review of Systems Review Of Systems: See Below Constitutional: Reports: Fatigue, Decreased Appetite (From not sleeping all night.). Denies: Fever, Chills, Malaise HEENT: Reports: No Symptoms Respiratory: Reports: Shortness of Breath, Wheezing (On exertion), Cough ( occasionally), Sputum ( occurs cough ) Cardiovascular: Reports: Dyspnea on Exertion. Denies: Chest Pain (pounds. She brings anything up ), Blood Pressure Problem, Claudication, Edema, Lightheadedness, Orthopnea Endocrine: Reports: Fatigue GI/Abdominal: Reports: Constipation : Reports: Frequency, Incontinence (Mostly stress-induced.) Musculoskeletal: Reports: Neck Pain, Shoulder Pain, Back Pain, Joint Pain Skin: Reports: No Symptoms (Knees and hips at times.) Neurological: Reports: No Symptoms Psychiatric: Reports: No Symptoms Hematologic/Lymphatic: Reports: No Symptoms Immunologic: Reports: No Symptoms ED EXAM, UPPER BACK/NECK PAIN - Physical Exam Exam: See Below Exam Limited By: No Limitations General Appearance: Moderate Distress Eye Exam: Bilateral Eye: Normal Inspection Head Exam: Atraumatic, Normocephalic Neck Exam: Normal Alignment, Limited Range of Motion, Muscle Spasm (Left side.) , Paraspinous Muscle Tender, Stiff Neck, Tenderness (Tender C5 C6 C7 facet joints left side.), Other (Axial traction did not cause any radiculopathy into either upper extremity.). No: Full Range of Motion Nexus Criteria: No: Posterior, Midline Cervical Tenderness, Evidence of Intoxication, Altered Level of Consciousness, Focal Neurological Deficit, Painful Distraction Injuries Cardiovascular/Respiratory: Regular Rate, Rhythm, No M/R/G, Normal Peripheral Pulses, No JVD, Other (Decreased air entry to both lung bases with bilateral expiratory wheezes. COPD clinically.). No: Normal Breath Sounds Course - Vital Signs Last Recorded V/S: Last Vital Signs Temp 36.6 C 05/14/19 14:14 Pulse 91 05/14/19 14:14 Resp 20 05/14/19 14:14 BP 151/93 H 05/14/19 14:14 Pulse Ox 100 05/14/19 14:14 - Orders/Labs/Meds Meds: Medications Discontinued Medications Generic Name Dose Route Start Last Admin Trade Name Dimitrios PRN Reason Stop Dose Admin Hydromorphone HCl 1 mg 05/14/19 14:23 05/14/19 14:31 Dilaudid IVPUSH 05/14/19 14:24 Not Given ONETIME ONE Hydromorphone HCl 1 mg 05/14/19 14:29 05/14/19 14:32 Dilaudid IM 05/14/19 14:30 1 mg ONETIME ONE Administration Promethazine HCl 25 mg 05/14/19 14:23 05/14/19 14:33 Phenergan IM 05/14/19 14:24 25 mg ONETIME ONE Administration - Radiology Interpretation Free Text/Narrative:: 63-year-old female presents to the ED with acute onset of severe left cervical neck pain rating across the upper trapezius muscle to the shoulder but not down the arm. She feels that in front of her left clavicle as well as in her posterior upper left back. She states she awoke with this pain around 0400 hrs. this morning. She states she's had similar type problems many times in the past. At present she doesn't have any health insurance and does not wish to have any imaging or testing done. Weekly she likely has significant arthritic changes in her neck. Testing did not reveal any signs of a radiculopathy due to disc herniation. Treated with an IM injection of Dilaudid 1 mg with Phenergan 25 mg in the ED. She was advised will likely have to go home to sleep she didn' t sleep all night so she is willing to do so. Prescription written for Percocet tablets 5/325 mg one or 2 every 4-6 hours needed for pain relief. 20 tablets provided. She'll 10 mg every 8 hours as needed for muscle spasm relief. Since in the past with no problems. Prednisone 20 mg twice a day for the next 5 days to relieve pain and inflammation. He does use Aleve on a when necessary basis. Expect improvement over the next 72 hours. Not she is to follow-up with her primary care physician or return to the ED. Departure - Departure Time of Disposition: 14:24 Disposition: Home, Self-Care 01 Condition: Fair Clinical Impression: Cervical pain (neck) - Discharge Information *PRESCRIPTION DRUG MONITORING PROGRAM REVIEWED*: Not Applicable *COPY OF PRESCRIPTION DRUG MONITORING REPORT IN PATIENT EMILY: Not Applicable Prescriptions: Cyclobenzaprine [Flexeril] 10 mg PO Q8H PRN #21 tab PRN Reason: Muscle spasm relief oxyCODONE HCl/Acetaminophen [Percocet 5-325 mg Tablet] 1 - 2 each PO Q4H PRN # 20 tablet PRN Reason: pain relief. predniSONE [Deltasone] 20 mg PO BID #10 tablet Instructions: Cervical Strain and Sprain Rehab-SportsMed Referrals: Talia Thomson PA-C [Primary Care Provider] - Forms: ED Department Discharge Additional Instructions: Evaluation the emergent today in regards to acute onset of severe left-sided neck pain radiating across the upper shoulder across the trapezius muscle with muscle spasm evident on exam. Also feeling some pain in the upper left shoulder and collarbone area. Until the neck causes muscle spasm. He states he awoke this way this morning about 0400 hrs. It is happened many times in the past. 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 Slight a sprained ankle limits her neck. Information in the underlying facet joints in the neck causing muscle to go into spasm limiting mobility. Suggest heat pack to the area one half hour out of every 4 hours for the next couple of days. Pain medication Percocet 5/325 mg one or 2 every 4-6 hours as needed for pain relief. Flexeril 1 tablet 10 mg strength every 8 hours as needed for relief of muscle spasm for the next couple of days. Suggest anti- inflammatory Deltasone 20 mg with breakfast and supper for the next 5 days to relieve pain and inflammation. Take one when he first gets him this afternoon and take a second one before bedtime tonight. Take them with a little fluid in your stomach. Expect marked improvement over the next 48-72 hours.
== END 2019-05-14 14:50 | disposition home or self-care (01) ==
LOC: JD.ED 14:05
DX: M54.2 Cervicalgia (principal); F17.210 Nicotine dependence, cigarettes, uncomplicated; Z88.0 Allergy status to penicillin; Z88.5 Allergy status to narcotic agent
CPT/HCPCS: 96372; 99283; J1170; J2550

== ENCOUNTER 2019-07-14 20:51 | Emergency (ER) | payer SELFPAY ==
[2019-07-14] MEDS ORDERED: Ondansetron 4 MG/2 ML SDV IVPUSH ONE ×2 (21:10→22:10)
[2019-07-14] MEDS ORDERED: Ketorolac 15 MG/ML SDV IVPUSH ONE (21:10)
[2019-07-14] MEDS ORDERED: Sodium Chloride 0.9% 500 ML IV ONE (21:10)
[2019-07-14 21:11] VITALS: BP 169/96; PULSE 73
[2019-07-14] MEDS ORDERED: Sodium Chloride 0.9% 10 ML Syringe FLUSH PRN (21:11)
[2019-07-14] MEDS ORDERED: HYDROmorphone 1 MG/ML Syringe IVPUSH PRN (21:11)
--- NOTE | 2019-07-14 21:17 | EDM.PDOC ---
ED HPI GENERAL MEDICAL PROBLEM - General Chief Complaint: Abdominal Pain Stated Complaint: lower back and stomach pain throwing up ect Time Seen by Provider: 07/14/19 20:55 Source of Information: Reports: Patient, Family History Limitations: Reports: No Limitations - History of Present Illness INITIAL COMMENTS - FREE TEXT/NARRATIVE: patient presents with acute onset of lower left abdominal pain as well as now onset of left flank pain. Onset was about 2:00 this afternoon. Was feeling well prior to the event. No fall trauma or injury. History of kidney stones in the past and feels similar. Patient felt clammy tonight when the pain got worse, no fevers however. No runny nose sore throat or coughing. No chest pain shortness of breath or breathing problems. Pain is sharp constant left flank and radiates down the left lower quadrant. No burning pain or blood in the urine. No pain in the legs or radicular pain. Hard to find a comfortable position and nothing really makes the pain better or worse. Onset: Today, Sudden Onset Date: 07/14/19 Duration: Hour(s):, Getting Worse Location: Reports: Back, Radiates to Quality: Reports: Same as Previous Episode, Sharp, Stabbing Severity: Severe Improves with: Reports: None Worsens with: Reports: None Associated Symptoms: Reports: No Other Symptoms, Nausea/Vomiting. Denies: Cough , Fever/Chills, Loss of Appetite, Shortness of Breath, Weakness Left Lower Abdomen Pain Score (Numeric/FACES): 10 - Related Data Allergies Allergy/AdvReac Type Severity Reaction Status Date / Time codeine Allergy Hives Verified 07/14/19 21:03 Penicillins Allergy Hives Verified 07/14/19 21:03 Home Meds: Home Meds Ketorolac [Toradol] 10 mg PO Q6H PRN #9 tab 07/14/19 [Rx] Levofloxacin [Levaquin] 500 mg PO DAILY #6 tablet 07/14/19 [Rx] Ondansetron [Zofran ODT] 4 mg PO Q6H PRN #14 tab.dis 07/14/19 [Rx] Tamsulosin HCl [Flomax] 0.4 mg PO BEDTIME #14 cap.er.24h 07/14/19 [Rx] Past Medical History HEENT History: Reports: Impaired Vision Other HEENT History: wears contacts Cardiovascular History: Reports: Other (See Below) Other Cardiovascular History: states has NTG available for chest pain, no other cardiac Hx. Respiratory History: Reports: COPD Gastrointestinal History: Reports: Colon Polyp, Diverticulosis, GERD Other Gastrointestinal History: blood in stool for about 10 years Genitourinary History: Reports: Renal Calculus, Urinary Incontinence [employer] History: Reports: Other [employer] History: Pelvic surgery--hole in pelvic bone Musculoskeletal History: Reports: Back Pain, Chronic Neurological History: Reports: Other (See Below) Other Neuro History: fibromalgia Psychiatric History: Reports: Anxiety, Depression, Other (See Below) Endocrine/Metabolic History: Reports: Diabetes, Type II (Type 2 diabetes labeled as prediabetic and is supposed to be on metformin 500 mg twice a day but cannot afford the medicine at this time.), Obesity/BMI 30+ - Infectious Disease History Infectious Disease History: Reports: Hepatitis C - Past Surgical History GI Surgical History: Reports: Colonoscopy, EGD Female Surgical History: Reports: Tubal Ligation Musculoskeletal Surgical History: Reports: Arthroscopic Knee, Other (See Below) Social & Family History - Family History Family Medical History: Noncontributory - Caffeine Use Caffeine Use: Reports: Coffee - Living Situation & Occupation Living situation: Reports: , with Spouse Occupation: Unemployed ED ROS GENERAL - Review of Systems Review Of Systems: See Below Constitutional: Reports: Diaphoresis. Denies: Fever HEENT: Denies: Rhinitis, Throat Pain Respiratory: Denies: Shortness of Breath, Cough Cardiovascular: Denies: Chest Pain, Lightheadedness, Syncope GI/Abdominal: Reports: Abdominal Pain, Nausea. Denies: Diarrhea, Vomiting : Reports: Flank Pain. Denies: Dysuria, Frequency, Hematuria, Incontinence Musculoskeletal: Reports: Back Pain Skin: Reports: No Symptoms. Denies: Rash Neurological: Reports: No Symptoms. Denies: Headache Psychiatric: Reports: No Symptoms ED EXAM, RENAL/ - Physical Exam Exam: See Below Exam Limited By: No Limitations General Appearance: Alert, WD/WN, Moderate Distress Throat/Mouth: Normal Inspection, Normal Oropharynx Head: Atraumatic, Normocephalic Neck: Normal Inspection, Supple Respiratory/Chest: No Respiratory Distress, Lungs Clear, Normal Breath Sounds, No Accessory Muscle Use Cardiovascular: Normal Peripheral Pulses, Regular Rate, Rhythm, No Edema, No JVD , No Murmur GI/Abdominal: Normal Bowel Sounds, No Distention, Other (left flank pain left lower quadrant pain. No rebound or rigidity no hepatosplenomegaly noted.) Extremities: Normal Inspection, No Pedal Edema Neurological: Alert, Oriented Psychiatric: Normal Affect Skin Exam: Warm, Dry Lymphatic: No Adenopathy Course - Vital Signs Text/Narrative:: examination, reviewed old records, IV fluids, Dilaudid for pain, Zofran and Toradol for pain and nausea, CT abdomen and pelvis noncontrast scan rule out kidney stone, seems highly likely renal colic, rule out AAA, diverticulitis, bowel obstruction, urinary tract infection, pyelonephritis. Last Recorded V/S: Last Vital Signs Temp 95.8 F 07/14/19 21:04 Pulse 73 07/14/19 21:04 Resp 16 07/14/19 21:04 BP 169/96 H 07/14/19 21:04 Pulse Ox 94 L 07/14/19 21:04 - Orders/Labs/Meds Orders: Active Orders 24 hr Category Date Time Status Peripheral IV Care [RC] . DIRECTED Care 07/14/19 21:11 Active Abdomen Pelvis wo Cont [CT] Stat Exams 07/14/19 21:10 Taken CULTURE URINE [RM] Stat Lab 07/14/19 22:43 Received HYDROmorphone [Dilaudid] Med 07/14/19 21:11 Active 1 mg IVPUSH Q2H PRN Ketorolac [Toradol] Med 07/14/19 23:07 Once 10 mg PO ONETIME ONE Ondansetron [Zofran ODT] Med 07/14/19 23:07 Once 4 mg PO ONETIME ONE Sodium Chloride 0.9% [Normal Saline] 500 ml Med 07/14/19 21:10 Active IV .BOLUS Sodium Chloride 0.9% [Saline Flush] Med 07/14/19 21:11 Active 10 ml FLUSH ASDIRECTED PRN Tamsulosin [Flomax] Med 07/14/19 23:07 Once 0.4 mg PO ONETIME ONE Peripheral IV Insertion Adult [OM.PC] Stat Oth 07/14/19 21:10 Ordered Medication Orders Hydromorphone HCl (Dilaudid) 1 mg IVPUSH Q2H PRN PRN Reason: Abdominal Pain Sodium Chloride (Normal Saline) 500 mls @ 250 mls/hr IV .BOLUS ONE Stop: 07/14/19 23:09 Last Admin: 07/14/19 21:49 Dose: 250 mls/hr Ketorolac Tromethamine (Toradol) 10 mg PO ONETIME ONE Stop: 07/14/19 23:08 Ondansetron HCl (Zofran Odt) 4 mg PO ONETIME ONE Stop: 07/14/19 23:08 Sodium Chloride (Saline Flush) 10 ml FLUSH ASDIRECTED PRN PRN Reason: Keep Vein Open Tamsulosin HCl (Flomax) 0.4 mg PO ONETIME ONE Stop: 07/14/19 23:08 Labs: Laboratory Tests 07/14/19 07/14/19 07/14/19 Range/Units 21:28 21:28 22:43 WBC 19.39 H (3.98-10.04) K/mm3 RBC 4.90 (3.98-5.22) M/mm3 Hgb 14.4 (11.2-15.7) gm/dl Hct 41.7 (34.1-44.9) % MCV 85.1 (79.4-94.8) fl MCH 29.4 (25.6-32.2) pg MCHC 34.5 (32.2-35.5) g/dl RDW Std Deviation 47.2 H (36.4-46.3) fL Plt Count 182 (182-369) K/mm3 MPV 10.8 (9.4-12.3) fl Neutrophils % (Manual) 82 H (40-60) % Band Neutrophils % 0 (0-10) % Lymphocytes % (Manual) 16 L (20-40) % Atypical Lymphs % 0 % Monocytes % (Manual) 1 L (2-10) % Eosinophils % (Manual) 1 (0.7-5.8) % Basophils % (Manual) 0 L (0.1-1.2) Platelet Estimate Adequate RBC Morph Comment Normal Sodium 138 (136-145) mEq/L Potassium 3.7 (3.5-5.1) mEq/L Chloride 101 (98-107) mEq/L Carbon Dioxide 23 (21-32) mEq/L Anion Gap 17.7 H (5-15) BUN 19 H (7-18) mg/dL Creatinine 1.1 H (0.55-1.02) mg/dL Est Cr Clr Drug Dosing 60.03 mL/min Estimated GFR (MDRD) 50 (>60) mL/min BUN/Creatinine Ratio 17.3 (14-18) Glucose 198 H (80-115) mg/dL Calcium 9.9 (8.5-10.1) mg/dL Total Bilirubin 0.5 (0.2-1.0) mg/dL AST 14 L (15-37) U/L ALT 18 (14-59) U/L Alkaline Phosphatase 132 H (46-116) U/L Total Protein 8.9 H (6.4-8.2) g/dl Albumin 4.7 (3.4-5.0) g/dl Globulin 4.2 gm/dL Albumin/Globulin Ratio 1.1 (1-2) Lipase 105 (73-393) U/L Urine Color Yellow (Yellow) Urine Appearance Slt cloudy H (Clear) Urine pH 5.5 (5.0-8.0) Ur Specific [place] > or = 1.030 (1.005-1.030) Urine Protein 2+ H (Negative) Urine Glucose (UA) Negative (Negative) Urine Ketones 2+ H (Negative) Urine Occult Blood 3+ H (Negative) Urine Nitrite Negative (Negative) Urine Bilirubin Negative (Negative) Urine Urobilinogen 0.2 (0.2-1.0) Ur Leukocyte Esterase Negative (Negative) Urine RBC 50-75 H (0-5) /hpf Urine WBC 0-5 (0-5) /hpf Ur Squamous Epith Cells 0-5 (0-5) /hpf Amorphous Sediment Few H (NOT SEEN) /hpf Urine Bacteria Moderate H (FEW) /hpf Hyaline Casts 0-5 (0-5) /lpf Urine Mucus Moderate H (FEW) /hpf Meds: Medications Generic Name Dose Route Start Last Admin Trade Name Freq PRN Reason Stop Dose Admin Hydromorphone HCl 1 mg 07/14/19 21:11 Dilaudid IVPUSH Q2H PRN Abdominal Pain Sodium Chloride 500 mls @ 250 mls/hr 07/14/19 21:10 07/14/19 21:49 Normal Saline IV 07/14/19 23:09 250 mls/hr .BOLUS ONE Administration Ketorolac Tromethamine 10 mg 07/14/19 23:07 Toradol PO 07/14/19 23:08 ONETIME ONE Ondansetron HCl 4 mg 07/14/19 23:07 Zofran Odt PO 07/14/19 23:08 ONETIME ONE Sodium Chloride 10 ml 07/14/19 21:11 Saline Flush FLUSH ASDIRECTED PRN Keep Vein Open Tamsulosin HCl 0.4 mg 07/14/19 23:07 Flomax PO 07/14/19 23:08 ONETIME ONE Discontinued Medications Generic Name Dose Route Start Last Admin Trade Name Marvelq PRN Reason Stop Dose Admin Ketorolac Tromethamine 15 mg 07/14/19 21:10 07/14/19 21:48 Toradol IVPUSH 07/14/19 21:11 15 mg ONETIME ONE Administration Levofloxacin 500 mg 07/14/19 22:59 Levaquin PO 07/14/19 23:00 ONETIME ONE Ondansetron HCl 4 mg 07/14/19 21:10 07/14/19 21:45 Zofran IVPUSH 07/14/19 21:11 4 mg ONETIME ONE Administration Ondansetron HCl 4 mg 07/14/19 22:10 07/14/19 22:13 Zofran IVPUSH 07/14/19 22:11 4 mg ONETIME ONE Administration - Radiology Interpretation Free Text/Narrative:: 3 mm left UPJ stone causing moderate hydronephrosis with small nonobstructing renal parenchymal stone. no other acute findings or changes noted. CT Results Date: 07/14/19 CT Results Time: 22:03 - Re-Assessments/Exams Free Text/Narrative Re-Assessment/Exam: 07/14/19 23:02 urinalysis positive for protein and ketones, red blood cells however the white cells noted. He does have some bacteria noted suspect may be more contaminant however we will empirically treat her based on her elevated white blood cell count with Levaquin. Send urine culture. Departure - Departure Time of Disposition: 23:08 Disposition: Home, Self-Care 01 Preliminary Cause of *Q: Cardiac Arrest Condition: Fair Clinical Impression: Flank pain, Ureteral stone with hydronephrosis, Leukocytosis, Kidney stone on left side, Ureteral colic, Elevated random blood glucose level - Discharge Information Prescriptions: Ketorolac [Toradol] 10 mg PO Q6H PRN #9 tab PRN Reason: Abdominal Pain Levofloxacin [Levaquin] 500 mg PO DAILY #6 tablet Ondansetron [Zofran ODT] 4 mg PO Q6H PRN #14 tab.dis PRN Reason: Nausea/Vomiting Tamsulosin HCl [Flomax] 0.4 mg PO BEDTIME #14 cap.er.24h Instructions: Kidney Stones, Hyperglycemia, [id number], Serum Creatinine Test , Dietary Guidelines to Help Prevent Kidney Stones Referrals: Talia Thomson PA-C [Primary Care Provider] - Forms: ED Department Discharge Additional Instructions: takes Zofran for nausea, Toradol for pain, Flomax to help pass the kidney stone. Follow-up with your primary provider on Tuesday Return to the emergency room however if any increasing pain, fevers, vomiting and unable to keep down fluids, unable to pass urine, chills or sweats, worse - My Orders Last 24 Hours: My Active Orders 07/14/19 21:10 Abdomen Pelvis wo Cont [CT] Stat Sodium Chloride 0.9% [Normal Saline] 500 ml IV .BOLUS Peripheral IV Insertion Adult [OM.PC] Stat 07/14/19 21:11 Peripheral IV Care [RC] . DIRECTED HYDROmorphone [Dilaudid] 1 mg IVPUSH Q2H PRN Sodium Chloride 0.9% [Saline Flush] 10 ml FLUSH ASDIRECTED PRN 07/14/19 22:43 CULTURE URINE [RM] Stat 07/14/19 23:07 Ketorolac [Toradol] 10 mg PO ONETIME ONE Ondansetron [Zofran ODT] 4 mg PO ONETIME ONE Tamsulosin [Flomax] 0.4 mg PO ONETIME ONE - Assessment/Plan Last 24 Hours: My Active Orders 07/14/19 21:10 Abdomen Pelvis wo Cont [CT] Stat Sodium Chloride 0.9% [Normal Saline] 500 ml IV .BOLUS Peripheral IV Insertion Adult [OM.PC] Stat 07/14/19 21:11 Peripheral IV Care [RC] . DIRECTED HYDROmorphone [Dilaudid] 1 mg IVPUSH Q2H PRN Sodium Chloride 0.9% [Saline Flush] 10 ml FLUSH ASDIRECTED PRN 07/14/19 22:43 CULTURE URINE [RM] Stat 07/14/19 23:07 Ketorolac [Toradol] 10 mg PO ONETIME ONE Ondansetron [Zofran ODT] 4 mg PO ONETIME ONE Tamsulosin [Flomax] 0.4 mg PO ONETIME ONE
[2019-07-14] MEDS ORDERED: Levofloxacin 500 MG Tab PO ONE (22:59)
[2019-07-14] MEDS ORDERED: Tamsulosin 0.4 MG Cap.ER PO ONE (23:07)
[2019-07-14] MEDS ORDERED: Ketorolac 10 MG Tab PO ONE (23:07)
[2019-07-14] MEDS ORDERED: Ondansetron 4 MG Tab.DIS PO ONE (23:07)
--- NOTE | 2019-07-15 16:01 | CT ---
CT abdomen and pelvis Technique: Multiple axial sections were obtained from above the dome of the diaphragm inferiorly through the pubic symphysis. Intravenous and oral contrast was not utilized. Study performed as a ureteral stone protocol. Comparison: Previous CT abdomen and pelvis exam of 04/24/19. Findings: Left kidney shows a prominent central collecting system. Left renal pelvis is prominent in size. These findings are caused by a small obstructing stone within the left UPJ measuring about 3 mm. No other abnormal calcifications are identified within the ureters. Three small nonobstructing calculi are seen within the left kidney. Several small nonobstructing calculi noted within the right kidney. Visualized lung bases show nothing acute. Liver contains no focal abnormality. Spleen previously showed a generous measurement which is no longer present. Adrenal glands show no nodule. Pancreas is within normal limits. Gallbladder contains no calcified gallstones. Atherosclerotic calcification is seen within the aorta and within the iliac vessels. No retroperitoneal adenopathy or mesenteric abnormalities are seen. Appendix is seen which is normal in size. No pelvic mass or adenopathy is seen. No free fluid or inflammatory change is appreciated. Bony density seen off the inferior right pubic ramus most likely due to old injury. Mild degenerative change is seen within the spine. No acute osseous abnormality is appreciated. No acute osseous abnormality is seen. Impression: 1. 3 mm obstructing calculus within the left ureter at the UPJ causing proximal hydronephrosis. 2. Small nonobstructing calculi within both kidneys. 3. Other findings as described above which are felt to be nonacute. Diagnostic code #3 I agree with preliminary report from [facility], finalized on 07/14/19, 10:58 PM Central Time
== END 2019-07-14 23:30 | disposition home or self-care (01) ==
LOC: JD.ED 20:51
DX: N13.2 Hydronephrosis with renal and ureteral calculous obstruction (principal); D72.829 Elevated white blood cell count, unspecified; E11.9 Type 2 diabetes mellitus without complications; J44.9 Chronic obstructive pulmonary disease, unspecified; E66.9 Obesity, unspecified; Z68.21 Body mass index [BMI] 21.0-21.9, adult; Z88.0 Allergy status to penicillin; Z88.5 Allergy status to narcotic agent
CPT/HCPCS: 36415; 74176; 80053; 81001; 83690; 85007; 85027; 87086; 96361; 96374; 96375; 99284; A9270; J1885; J2405; J7040

== ENCOUNTER 2019-08-23 08:13 | Emergency (ER) | payer OTHER ==
[2019-08-23 08:35] VITALS: BP 176/85; PULSE 101
[2019-08-23] MEDS ORDERED: Ondansetron 4 MG/2 ML SDV IVPUSH ONE (08:47)
[2019-08-23] MEDS ORDERED: Ketorolac 30 MG/ML SDV IVPUSH ONE (08:47)
[2019-08-23] MEDS ORDERED: HYDROmorphone 0.5 MG/0.5 ML Syringe IVPUSH ONE (08:47)
[2019-08-23] MEDS ORDERED: Sodium Chloride 0.9% 10 ML Syringe FLUSH PRN (08:48)
--- NOTE | 2019-08-23 08:53 | EDM.PDOC ---
ED HPI GENERAL MEDICAL PROBLEM - General Chief Complaint: Genitourinary Problem Stated Complaint: KIDNEY STONE Time Seen by Provider: 08/23/19 08:28 Source of Information: Reports: Patient History Limitations: Reports: No Limitations - History of Present Illness INITIAL COMMENTS - FREE TEXT/NARRATIVE: Patient is a 63-year-old female who presents with complaints of suprapubic and lower back pain. She states his symptoms started on Tuesday. She does have a history of kidney stones, with her last being diagnosed in our emergency department on July 14. She denies any fever, chills, dysuria, or hematuria. She did have some diarrhea on the way to the ER today and did have an emesis 1. She rates pain 9 out of 10. She cannot lateralize the pain. Pelvic Pain Score (Numeric/FACES): 9 - Related Data Allergies Allergy/AdvReac Type Severity Reaction Status Date / Time codeine Allergy Hives Verified 07/14/19 21:03 Penicillins Allergy Hives Verified 07/14/19 21:03 Home Meds: Home Meds Ondansetron [Zofran ODT] 4 mg PO Q6H PRN #14 tab.dis 07/14/19 [Rx] Ciprofloxacin HCl [Cipro] 500 mg PO BID 6 Days #12 tablet 08/23/19 [Rx] metroNIDAZOLE [Flagyl] 500 mg PO Q8H #20 tab 08/23/19 [Rx] Past Medical History HEENT History: Reports: Impaired Vision Other HEENT History: wears contacts Cardiovascular History: Reports: Other (See Below) Other Cardiovascular History: states has NTG available for chest pain, no other cardiac Hx. Respiratory History: Reports: COPD Gastrointestinal History: Reports: Colon Polyp, Diverticulosis, GERD Other Gastrointestinal History: blood in stool for about 10 years Genitourinary History: Reports: Renal Calculus, Urinary Incontinence BDR History: Reports: Other BDR History: Pelvic surgery--hole in pelvic bone Musculoskeletal History: Reports: Back Pain, Chronic Neurological History: Reports: Other (See Below) Other Neuro History: fibromalgia Psychiatric History: Reports: Anxiety, Depression, Other (See Below) Endocrine/Metabolic History: Reports: Diabetes, Type II, Obesity/BMI 30+ - Infectious Disease History Infectious Disease History: Reports: Hepatitis C Other Infectious Disease History: past history - Past Surgical History GI Surgical History: Reports: Colonoscopy, EGD Female Surgical History: Reports: Tubal Ligation Musculoskeletal Surgical History: Reports: Arthroscopic Knee, Other (See Below) Social & Family History - Family History Family Medical History: Noncontributory - Tobacco Use Smoking Status *Q: Current Every Day Smoker Years of Tobacco use: 50 Packs/Tins Daily: 0.5 - Caffeine Use Caffeine Use: Reports: Coffee - Recreational Drug Use Recreational Drug Use: Yes Recreational Drug Type: Reports: Marijuana/Hashish - Living Situation & Occupation Living situation: Reports: , with Spouse Occupation: Unemployed ED ROS GENERAL - Review of Systems Review Of Systems: See Below Constitutional: Reports: No Symptoms. Denies: Fever, Chills HEENT: Reports: No Symptoms Respiratory: Reports: No Symptoms Cardiovascular: Reports: No Symptoms Endocrine: Reports: No Symptoms GI/Abdominal: Reports: Abdominal Pain (suprapubic), Diarrhea, Nausea, Stool Incontinence, Vomiting : Reports: Flank Pain. Denies: Dysuria, Frequency, Hematuria Musculoskeletal: Reports: No Symptoms Neurological: Reports: No Symptoms Psychiatric: Reports: No Symptoms Hematologic/Lymphatic: Reports: No Symptoms Immunologic: Reports: No Symptoms ED EXAM, RENAL/ - Physical Exam Exam: See Below Exam Limited By: No Limitations General Appearance: Alert, WD/WN, Mild Distress Respiratory/Chest: No Respiratory Distress, Lungs Clear, Normal Breath Sounds, No Accessory Muscle Use, Chest Non-Tender Cardiovascular: Normal Peripheral Pulses, Regular Rate, Rhythm, No Edema, No Murmur GI/Abdominal: Normal Bowel Sounds, Soft, Tender (suprapubic and LLQ) Back Exam: CVA Tenderness (L). No: CVA Tenderness (R) Neurological: Alert, Oriented, Normal Cognition Psychiatric: Normal Affect, Normal Mood Skin Exam: Warm, Dry, Intact, Normal Color, No Rash Course - Vital Signs Last Recorded V/S: Last Vital Signs Temp 97.6 F 08/23/19 08:31 Pulse 101 H 08/23/19 08:31 Resp 16 08/23/19 08:31 BP 176/85 H 08/23/19 08:31 Pulse Ox 95 08/23/19 08:31 - Orders/Labs/Meds Orders: Active Orders 24 hr Category Date Time Status Peripheral IV Care [RC] . DIRECTED Care 08/23/19 08:48 Active Sodium Chloride 0.9% [Normal Saline] 1,000 ml Med 08/23/19 09:00 Active IV ASDIRECTED Sodium Chloride 0.9% [Saline Flush] Med 08/23/19 08:48 Active 10 ml FLUSH ASDIRECTED PRN Peripheral IV Insertion Adult [OM.PC] Stat Oth 08/23/19 08:48 Ordered Medication Orders Sodium Chloride (Normal Saline) 1,000 mls @ 999 mls/hr IV ASDIRECTED JONES Last Admin: 08/23/19 09:18 Dose: 999 mls/hr Sodium Chloride (Saline Flush) 10 ml FLUSH ASDIRECTED PRN PRN Reason: Keep Vein Open Last Admin: 08/23/19 09:30 Dose: 10 ml Labs: Laboratory Tests 08/23/19 08/23/19 08/23/19 Range/Units 09:17 09:17 09:50 WBC 18.62 H (3.98-10.04) K/mm3 RBC 4.71 (3.98-5.22) M/mm3 Hgb 13.6 (11.2-15.7) gm/dl Hct 39.9 (34.1-44.9) % MCV 84.7 (79.4-94.8) fl MCH 28.9 (25.6-32.2) pg MCHC 34.1 (32.2-35.5) g/dl RDW Std Deviation 46.6 H (36.4-46.3) fL Plt Count 245 (182-369) K/mm3 MPV 9.9 (9.4-12.3) fl Neut % (Auto) 83.7 H (34.0-71.1) % Lymph % (Auto) 6.4 L (19.3-51.7) % [place] % (Auto) 8.9 (4.7-12.5) % Eos % (Auto) 0.3 L (0.7-5.8) Baso % (Auto) 0.4 (0.1-1.2) % Neut # (Auto) 15.59 H (1.56-6.13) K/mm3 Lymph # (Auto) 1.20 (1.18-3.74) K/mm3 [place] # (Auto) 1.65 H (0.24-0.36) K/mm3 Eos # (Auto) 0.05 (0.04-0.36) K/mm3 Baso # (Auto) 0.07 (0.01-0.08) K/mm3 Sodium 138 (136-145) mEq/L Potassium 3.8 (3.5-5.1) mEq/L Chloride 104 (98-107) mEq/L Carbon Dioxide 22 (21-32) mEq/L Anion Gap 15.8 H (5-15) BUN 12 (7-18) mg/dL Creatinine 0.9 (0.55-1.02) mg/dL Est Cr Clr Drug Dosing 47.15 mL/min Estimated GFR (MDRD) > 60 (>60) mL/min BUN/Creatinine Ratio 13.3 L (14-18) Glucose 192 H (80-115) mg/dL Calcium 9.6 (8.5-10.1) mg/dL Total Bilirubin 0.8 (0.2-1.0) mg/dL AST 9 L (15-37) U/L ALT 17 (14-59) U/L Alkaline Phosphatase 120 H (46-116) U/L Total Protein 8.3 H (6.4-8.2) g/dl Albumin 4.2 (3.4-5.0) g/dl Globulin 4.1 gm/dL Albumin/Globulin Ratio 1.0 (1-2) Urine Color Yellow (Yellow) Urine Appearance Clear (Clear) Urine pH 5.5 (5.0-8.0) Ur Specific Drums > or = 1.030 (1.005-1.030) Urine Protein 2+ H (Negative) Urine Glucose (UA) Negative (Negative) Urine Ketones 2+ H (Negative) Urine Occult Blood 1+ H (Negative) Urine Nitrite Negative (Negative) Urine Bilirubin 1+ H (Negative) Urine Urobilinogen 0.2 (0.2-1.0) Ur Leukocyte Esterase Negative (Negative) Urine RBC 5-10 H (0-5) /hpf Urine WBC 0-5 (0-5) /hpf Ur Squamous Epith Cells 0-5 (0-5) /hpf Urine Bacteria Few (FEW) /hpf Hyaline Casts 0-5 (0-5) /lpf Urine Mucus Many H (FEW) /hpf Meds: Medications Generic Name Dose Route Start Last Admin Trade Name Freq PRN Reason Stop Dose Admin Sodium Chloride 1,000 mls @ 999 mls/hr 08/23/19 09:00 08/23/19 09:18 Normal Saline IV 999 mls/hr ASDIRECTED JONES Administration Sodium Chloride 10 ml 08/23/19 08:48 08/23/19 09:30 Saline Flush FLUSH 10 ml ASDIRECTED PRN Administration Keep Vein Open Discontinued Medications Generic Name Dose Route Start Last Admin Trade Name Dimitrios PRN Reason Stop Dose Admin Hydromorphone HCl 0.5 mg 08/23/19 08:47 08/23/19 09:22 Dilaudid IVPUSH 08/23/19 08:48 0.5 mg ONETIME ONE Administration Ketorolac Tromethamine 30 mg 08/23/19 08:47 08/23/19 09:20 Toradol IVPUSH 08/23/19 08:48 30 mg ONETIME ONE Administration Ondansetron HCl 4 mg 08/23/19 08:47 08/23/19 09:18 Zofran IVPUSH 08/23/19 08:48 4 mg ONETIME ONE Administration - Re-Assessments/Exams Free Text/Narrative Re-Assessment/Exam: 08/23/19 10:34 patient is feeling much better after medication administration. She thinks that she may have passed her stone when she had the episode of incontinent stool and vomiting on the way to the emergency department. CT report was negative for any obstructing renal calculi, however she does have a mild diverticulitis which would correlate with her left lower quadrant tenderness as well as her WBC of 18.62 with a left shift. I will start her on Cipro and Flagyl. First dose will be given in the emergency department; however, we do not carry Cipro so we will give levaquin and start cipro tomorrow. Prescription will be sent to [facility]. Departure - Departure Time of Disposition: 10:45 Disposition: Home, Self-Care 01 Condition: Fair Clinical Impression: Acute diverticulitis - Discharge Information *PRESCRIPTION DRUG MONITORING PROGRAM REVIEWED*: No *COPY OF PRESCRIPTION DRUG MONITORING REPORT IN PATIENT EMILY: No Prescriptions: Ciprofloxacin HCl [Cipro] 500 mg PO BID 6 Days #12 tablet metroNIDAZOLE [Flagyl] 500 mg PO Q8H #20 tab Instructions: Diverticulitis Referrals: Talia Thomson PA-C [Primary Care Provider] - Forms: ED Department Discharge Additional Instructions: You were seen in the emergency Department today for lower abdominal pain and back pain that started on Tuesday. There were no signs of an obstructing kidney stone, however you do have mild diverticulitis. You were given a dose of Levaquin and Flagyl in the emergency department today. You were started on Ciprofloxacin 500 mg twice daily for 6 days starting tomorrow and Flagyl 500 mg 3 times daily for 7 days starting this afternoon. These medications have been sent electronically to [facility]. If you experience any worsening symptoms including worsening abdominal pain, fever, or any other concerning symptoms, please don't hesitate to return to the emergency department. Sepsis Event Note - Evaluation Sepsis Screening Result: No Definite Risk - Focused Exam Vital Signs: Vital Signs Temp Pulse Resp BP Pulse Ox 08/23/19 08:31 97.6 F 101 H 16 176/85 H 95 Date Exam was Performed: 08/23/19 Time Exam was Performed: 10:34 - My Orders Last 24 Hours: My Active Orders 08/23/19 08:48 Peripheral IV Care [RC] . DIRECTED Sodium Chloride 0.9% [Saline Flush] 10 ml FLUSH ASDIRECTED PRN Peripheral IV Insertion Adult [OM.PC] Stat 08/23/19 09:00 Sodium Chloride 0.9% [Normal Saline] 1,000 ml IV ASDIRECTED - Assessment/Plan Last 24 Hours: My Active Orders 08/23/19 08:48 Peripheral IV Care [RC] . DIRECTED Sodium Chloride 0.9% [Saline Flush] 10 ml FLUSH ASDIRECTED PRN Peripheral IV Insertion Adult [OM.PC] Stat 08/23/19 09:00 Sodium Chloride 0.9% [Normal Saline] 1,000 ml IV ASDIRECTED
[2019-08-23] MEDS ORDERED: Sodium Chloride 0.9% 1,000 ML IV SCH (09:00)
--- NOTE | 2019-08-23 10:12 | CT ---
CT abdomen and pelvis Technique: Multiple axial sections were obtained from above the dome of the diaphragm inferiorly through the pubic symphysis. Intravenous contrast was not utilized. Oral contrast also not utilized. Comparison: Previous abdominal and pelvic CT study of 07/14/19. Findings: Visualized lung bases show nothing acute. Liver contains no focal abnormality. Spleen appears within normal limits. Gallbladder contains no calcified gallstones. Adrenal glands show no nodule. Several small nonobstructing calculi measuring less than 5 mm are noted within the left kidney. No ureteral dilatation is seen. Previous left ureteral stone is no longer seen. Pancreas shows no discrete abnormality. No aneurysm is seen within the abdominal aorta. Mild atherosclerotic calcification is noted within the aortoiliac system. No retroperitoneal adenopathy or mesenteric abnormalities are seen. No pelvic mass or adenopathy is seen. Appendix is seen and is normal in size. Diverticuli are seen within the sigmoid colon. Minimal inflammatory change is seen around a diverticuli within the sigmoid colon. No additional inflammatory change is seen. No free fluid is identified. Bone window settings were reviewed which show degenerative change within both apophyseal joints at L5-S1 with vacuum phenomena. Lesser degenerative change is scattered within other portions of the spine. No acute osseous abnormality is seen. Impression: 1. Findings compatible with mild diverticulitis within the sigmoid colon. 2. Two small nonobstructing calculi within the left kidney. No ureteral dilatation or ureteral stone is seen. 3. Other findings believed to be incidental as described above. Diagnostic code #3 This report was dictated in [place] Standard Time
[2019-08-23] MEDS ORDERED: Levofloxacin 500 MG Tab PO ONE (10:36)
[2019-08-23] MEDS ORDERED: metroNIDAZOLE 500 MG Tab PO ONE (10:38)
== END 2019-08-23 11:12 | disposition home or self-care (01) ==
LOC: JD.ED 08:13
DX: K57.32 Diverticulitis of large intestine without perforation or abscess without bleeding (principal); E11.9 Type 2 diabetes mellitus without complications; F17.210 Nicotine dependence, cigarettes, uncomplicated; Z88.0 Allergy status to penicillin; Z88.5 Allergy status to narcotic agent; Z98.51 Tubal ligation status
CPT/HCPCS: 36415; 74176; 80053; 81001; 85025; 96374; 96375; 99284; A9270; J1170; J1885; J2405; J7030

== ENCOUNTER 2019-12-01 20:55 | Emergency (ER) | payer MEDICAID, OTHER ==
[2019-12-01 21:07] VITALS: BP 178/93; PULSE 73
[2019-12-01] MEDS ORDERED: HYDROmorphone 0.5 MG/0.5 ML Syringe IVPUSH ONE (21:17)
[2019-12-01] MEDS ORDERED: Ondansetron 4 MG/2 ML SDV IVPUSH ONE ×2 (21:18→22:50)
--- NOTE | 2019-12-01 21:22 | EDM.PDOC ---
ED HPI GENERAL MEDICAL PROBLEM - General Chief Complaint: Gastrointestinal Problem Stated Complaint: lower abdominal pain 4 times to the [facility] blood Time Seen by Provider: 12/01/19 21:07 Source of Information: Reports: Patient, Family History Limitations: Reports: No Limitations - History of Present Illness INITIAL COMMENTS - FREE TEXT/NARRATIVE: Is a 64-year-old female. Onset around 1900 with diarrhea and she apparently had 4 episodes of diarrhea and the last 3 episodes there was bright red blood and possibly clots. She also vomited x1 but there was no blood or coffee grounds with the vomitus. She complains of lower midline abdominal pain and nausea. She complains of chilling but she has not had any documented fever and she is afebrile in the ER. Does have a significant history of diverticulitis but her last flareup was August 2019. States she has been doing okay otherwise until this started this evening. The patient denies any use of blood thinners and daily aspirin. Abdomen Pain Score (Numeric/FACES): 7 - Related Data Allergies Allergy/AdvReac Type Severity Reaction Status Date / Time codeine Allergy Hives Verified 12/01/19 21:07 Penicillins Allergy Hives Verified 12/01/19 21:07 Home Meds: Home Meds Ondansetron [Zofran ODT] 4 mg PO Q6H PRN #14 tab.dis 07/14/19 [Rx] Cyclobenzaprine [Flexeril] 10 mg PO TID 12/01/19 [History] Rosuvastatin [Crestor] 5 mg PO DAILY 12/01/19 [History] cloNIDine [Catapres] 0.1 mg PO BID 12/01/19 [History] Ciprofloxacin HCl [Cipro] 500 mg PO BID #14 tablet 12/02/19 [Rx] metroNIDAZOLE [Flagyl] 500 mg PO BID #14 tab 12/02/19 [Rx] predniSONE 40 mg PO WITHBREAKFAST #4 tab 12/02/19 [Rx] Past Medical History HEENT History: Reports: Impaired Vision Other HEENT History: wears contacts Cardiovascular History: Reports: Other (See Below) Other Cardiovascular History: states has NTG available for chest pain, no other cardiac Hx. Respiratory History: Reports: COPD Gastrointestinal History: Reports: Colon Polyp, Diverticulosis, GERD Other Gastrointestinal History: blood in stool for about 10 years Genitourinary History: Reports: Renal Calculus, Urinary Incontinence [employer]ING [employer]ACHINE [employer] History: Reports: Other [employer]INE [employer] History: Pelvic surgery--hole in pelvic bone Musculoskeletal History: Reports: Back Pain, Chronic Neurological History: Reports: Other (See Below) Other Neuro History: fibromalgia Psychiatric History: Reports: Anxiety, Depression, Other (See Below) Endocrine/Metabolic History: Reports: Diabetes, Type II, Obesity/BMI 30+ - Infectious Disease History Infectious Disease History: Reports: Hepatitis C Other Infectious Disease History: past history - Past Surgical History GI Surgical History: Reports: Colonoscopy, EGD Female Surgical History: Reports: Tubal Ligation Musculoskeletal Surgical History: Reports: Arthroscopic Knee, Other (See Below) Social & Family History - Family History Family Medical History: Noncontributory - Tobacco Use Smoking Status *Q: Current Every Day Smoker Years of Tobacco use: 50 Packs/Tins Daily: 0.5 - Caffeine Use Caffeine Use: Reports: Coffee - Recreational Drug Use Recreational Drug Use: Yes Recreational Drug Type: Reports: Marijuana/Hashish Recreational Drug Use Frequency: Weekly - Living Situation & Occupation Living situation: Reports: , with Spouse Occupation: Unemployed ED ROS GENERAL - Review of Systems Review Of Systems: See Below Constitutional: Reports: Chills, Malaise. Denies: Fever HEENT: Reports: No Symptoms Respiratory: Denies: Shortness of Breath, Cough Cardiovascular: Denies: Chest Pain Endocrine: Reports: No Symptoms GI/Abdominal: Reports: Abdominal Pain, Bloody Stool, Diarrhea, Nausea, Vomiting : Reports: No Symptoms Musculoskeletal: Reports: No Symptoms Skin: Reports: No Symptoms Neurological: Reports: No Symptoms Psychiatric: Reports: No Symptoms Hematologic/Lymphatic: Reports: No Symptoms ED EXAM, GI/ABD - Physical Exam Exam: See Below Exam Limited By: No Limitations General Appearance: Alert, WD/WN, Mild Distress Eyes: Bilateral: Normal Appearance Ears: Normal External Exam Nose: Normal Inspection Throat/Mouth: Normal Inspection, Normal Lips, Normal Voice, No Airway Compromise , Other (Patient is slightly pale and she has sweating slightly) Head: Normocephalic Neck: Supple Respiratory/Chest: No Respiratory Distress, Lungs Clear, Normal Breath Sounds Cardiovascular: Regular Rate, Rhythm, No Murmur. No: Tachycardia GI/Abdominal Exam: Soft, Other (Bowel sounds are decreased in the abdomen in 4 quadrants, she is tender midline lower abdomen and may be slightly left lower quadrant. There is no rebound however noted in the 4 quadrants.) Rectal (Female) Exam: Heme + Stool, Other (The sample was not grossly bloody) Back Exam: Full Range of Motion Extremities: Normal Inspection, Normal Range of Motion Neurological: Alert, Oriented Psychiatric: Anxious Skin Exam: Warm, Diaphoretic Course - Vital Signs Last Recorded V/S: Last Vital Signs Temp 96.9 F 12/01/19 21:04 Pulse 73 12/01/19 21:04 Resp 18 12/01/19 21:04 BP 178/93 H 12/01/19 21:04 Pulse Ox 96 12/01/19 21:04 - Orders/Labs/Meds Orders: Active Orders 24 hr Category Date Time Status Hemoccult [Fecal Occult Blood Collection] [RC] Care 12/01/19 22:21 Active ASDIRECTED Abdomen Pelvis wo Cont [CT] Stat Exams 12/01/19 22:13 Taken Sodium Chloride 0.9% [Normal Saline] 1,000 ml Med 12/01/19 21:30 Active IV ASDIRECTED Sodium Chloride 0.9% [Normal Saline] 1,000 ml Med 12/01/19 23:45 Active IV ASDIRECTED Medication Orders Sodium Chloride (Normal Saline) 1,000 mls @ 500 mls/hr IV ASDIRECTED JONES Last Admin: 12/01/19 21:41 Dose: 500 mls/hr Sodium Chloride (Normal Saline) 1,000 mls @ 100 mls/hr IV ASDIRECTED JONES Last Admin: 12/01/19 23:45 Dose: 100 mls/hr Labs: Laboratory Tests 12/01/19 12/01/19 12/01/19 Range/Units 21:25 21:25 21:38 WBC 17.55 H (3.98-10.04) K/mm3 RBC 5.19 (3.98-5.22) M/mm3 Hgb 14.9 (11.2-15.7) gm/dl Hct 43.8 (34.1-44.9) % MCV 84.4 (79.4-94.8) fl MCH 28.7 (25.6-32.2) pg MCHC 34.0 (32.2-35.5) g/dl RDW Std Deviation 48.5 H (36.4-46.3) fL Plt Count 191 (182-369) K/mm3 MPV 10.4 (9.4-12.3) fl Neut % (Auto) 78.6 H (34.0-71.1) % Lymph % (Auto) 10.5 L (19.3-51.7) % [place] % (Auto) 8.9 (4.7-12.5) % Eos % (Auto) 0.7 (0.7-5.8) Baso % (Auto) 0.9 (0.1-1.2) % Neut # (Auto) 13.80 H (1.56-6.13) K/mm3 Lymph # (Auto) 1.84 (1.18-3.74) K/mm3 [place] # (Auto) 1.56 H (0.24-0.36) K/mm3 Eos # (Auto) 0.13 (0.04-0.36) K/mm3 Baso # (Auto) 0.15 H (0.01-0.08) K/mm3 Manual Slide Review Abnormal smear Sodium 140 (136-145) mEq/L Potassium 4.0 (3.5-5.1) mEq/L Chloride 102 (98-107) mEq/L Carbon Dioxide 24 (21-32) mEq/L Anion Gap 18.0 H (5-15) BUN 20 H (7-18) mg/dL Creatinine 1.2 H (0.55-1.02) mg/dL Est Cr Clr Drug Dosing 34.91 mL/min Estimated GFR (MDRD) 46 (>60) mL/min BUN/Creatinine Ratio 16.7 (14-18) Glucose 179 H (80-115) mg/dL Lactic Acid 1.1 (0.4-2.0) mmol/L Calcium 10.4 H (8.5-10.1) mg/dL Magnesium 2.1 (1.8-2.4) mg/dl Total Bilirubin 0.4 (0.2-1.0) mg/dL AST 11 L (15-37) U/L ALT 22 (14-59) U/L Alkaline Phosphatase 113 (46-116) U/L C-Reactive Protein < 0.2 (<1.0) mg/dL Total Protein 8.7 H (6.4-8.2) g/dl Albumin 4.7 (3.4-5.0) g/dl Globulin 4.0 gm/dL Albumin/Globulin Ratio 1.2 (1-2) 12/02/19 Range/Units 00:47 WBC 15.79 H (3.98-10.04) K/mm3 RBC 4.67 (3.98-5.22) M/mm3 Hgb 13.4 D (11.2-15.7) gm/dl Hct 39.8 (34.1-44.9) % MCV 85.2 (79.4-94.8) fl MCH 28.7 (25.6-32.2) pg MCHC 33.7 (32.2-35.5) g/dl RDW Std Deviation 49.2 H (36.4-46.3) fL Plt Count 180 L (182-369) K/mm3 MPV 10.9 (9.4-12.3) fl Neut % (Auto) 82.7 H (34.0-71.1) % Lymph % (Auto) 10.3 L (19.3-51.7) % [place] % (Auto) 5.5 (4.7-12.5) % Eos % (Auto) 0.3 L (0.7-5.8) Baso % (Auto) 0.8 (0.1-1.2) % Neut # (Auto) 13.07 H (1.56-6.13) K/mm3 Lymph # (Auto) 1.62 (1.18-3.74) K/mm3 [place] # (Auto) 0.87 H (0.24-0.36) K/mm3 Eos # (Auto) 0.05 (0.04-0.36) K/mm3 Baso # (Auto) 0.12 H (0.01-0.08) K/mm3 Manual Slide Review Abnormal smear Sodium (136-145) mEq/L Potassium (3.5-5.1) mEq/L Chloride (98-107) mEq/L Carbon Dioxide (21-32) mEq/L Anion Gap (5-15) BUN (7-18) mg/dL Creatinine (0.55-1.02) mg/dL Est Cr Clr Drug Dosing mL/min Estimated GFR (MDRD) (>60) mL/min BUN/Creatinine Ratio (14-18) Glucose (80-115) mg/dL Lactic Acid (0.4-2.0) mmol/L Calcium (8.5-10.1) mg/dL Magnesium (1.8-2.4) mg/dl Total Bilirubin (0.2-1.0) mg/dL AST (15-37) U/L ALT (14-59) U/L Alkaline Phosphatase (46-116) U/L C-Reactive Protein (<1.0) mg/dL Total Protein (6.4-8.2) g/dl Albumin (3.4-5.0) g/dl Globulin gm/dL Albumin/Globulin Ratio (1-2) Meds: Medications Generic Name Dose Route Start Last Admin Trade Name Freq PRN Reason Stop Dose Admin Sodium Chloride 1,000 mls @ 500 mls/hr 12/01/19 21:30 12/01/19 21:41 Normal Saline IV 500 mls/hr ASDIRECTED JONES Administration Sodium Chloride 1,000 mls @ 100 mls/hr 12/01/19 23:45 12/01/19 23:45 Normal Saline IV 100 mls/hr ASDIRECTED JONES Administration Discontinued Medications Generic Name Dose Route Start Last Admin Trade Name Freq PRN Reason Stop Dose Admin Diatrizoate Meglum/Diatrizoate Sod 90 ml 12/01/19 23:28 12/02/19 00:02 Gastrografin 37% PO 12/01/19 23:29 90 ml ONETIME ONE Administration Hydromorphone HCl 0.5 mg 12/01/19 21:17 12/01/19 21:31 Dilaudid IVPUSH 12/01/19 21:18 0.5 mg ONETIME ONE Administration Ondansetron HCl 4 mg 12/01/19 21:18 12/01/19 21:31 Zofran IVPUSH 12/01/19 21:19 4 mg ONETIME ONE Administration Ondansetron HCl 4 mg 12/01/19 22:50 12/01/19 22:54 Zofran IVPUSH 12/01/19 22:51 4 mg ONETIME ONE Administration - Radiology Interpretation Free Text/Narrative:: CT scan with oral contrast not show any thickened dilated small bowel loops. Gas and stool small quantities was seen in the colon and possible mural stratification compressed large bowel was noted but there is no evidence of acute diverticulitis. They did not see any inflammation within the intra- abdominal fat and the lymph nodes in the celiac mesenteric periportal extraperitoneal and inguinal nodes were not enlarged. The impression was possible colitis. - Re-Assessments/Exams Free Text/Narrative Re-Assessment/Exam: 12/02/19 01:36 To the patient regarding her CT scan that showed colitis. Her hemoglobin initially was 14.9 and now it is 13.4 but we did give her a liter of fluids and she is somewhat dehydrated. I do not believe this drop is significant as far as the blood she had in her stool. She has had no bowel movement since she has been here and she says she feels fine and the pain has resolved. I am going to put her on some antibiotics and steroids and she is to follow-up with her family doctor this week for recheck she does understand that if she has increased bleeding with her bowel movement she might need to return to the ER for reevaluation. Departure - Departure Time of Disposition: 01:37 Disposition: Home, Self-Care 01 Condition: Fair Clinical Impression: Colitis, Lower GI bleed Diarrhea Qualifiers: Diarrhea type: unspecified type Qualified Code(s): R19.7 - Diarrhea, unspecified - Discharge Information *PRESCRIPTION DRUG MONITORING PROGRAM REVIEWED*: Not Applicable *COPY OF PRESCRIPTION DRUG MONITORING REPORT IN PATIENT EMILY: Not Applicable Prescriptions: Ciprofloxacin HCl [Cipro] 500 mg PO BID #14 tablet metroNIDAZOLE [Flagyl] 500 mg PO BID #14 tab predniSONE 40 mg PO WITHBREAKFAST #4 tab Instructions: Gastrointestinal Bleeding Scan Referrals: Talia Thomson PA-C [Primary Care Provider] - Forms: ED Department Discharge Additional Instructions: Take the antibiotics faithfully until they are finished, take the prednisone faithfully until it is finished, start drinking more fluids that are healthy and not coffee or sodas, you need to increase your fiber in your diet and I would consider a fiber supplement like FiberCon which can be gotten over-the- counter, crease your fruits and vegetables and salads, call your doctor on Tuesday because you need to be rechecked, if the bleeding continues or worsens you might need to be scoped and you might need to return to the ER for reevaluation. Sepsis Event Note - Evaluation Sepsis Screening Result: No Definite Risk - Focused Exam Vital Signs: Vital Signs Temp Pulse Resp BP Pulse Ox 12/01/19 21:04 96.9 F 73 18 178/93 H 96 Date Exam was Performed: 12/02/19 Time Exam was Performed: 01:36 - My Orders Last 24 Hours: My Active Orders 12/01/19 21:30 Sodium Chloride 0.9% [Normal Saline] 1,000 ml IV ASDIRECTED 12/01/19 22:13 Abdomen Pelvis wo Cont [CT] Stat 12/01/19 22:21 Hemoccult [Fecal Occult Blood Collection] [RC] ASDIRECTED 12/01/19 23:45 Sodium Chloride 0.9% [Normal Saline] 1,000 ml IV ASDIRECTED - Assessment/Plan Last 24 Hours: My Active Orders 12/01/19 21:30 Sodium Chloride 0.9% [Normal Saline] 1,000 ml IV ASDIRECTED 12/01/19 22:13 Abdomen Pelvis wo Cont [CT] Stat 12/01/19 22:21 Hemoccult [Fecal Occult Blood Collection] [RC] ASDIRECTED 12/01/19 23:45 Sodium Chloride 0.9% [Normal Saline] 1,000 ml IV ASDIRECTED
[2019-12-01] MEDS ORDERED: Sodium Chloride 0.9% 1,000 ML IV SCH ×2 (21:30→23:45)
[2019-12-01] MEDS ORDERED: Diatrizoate Meglumine/Diatrizoate Sodium 37% 120 ML Bottle PO ONE (23:28)
--- NOTE | 2019-12-02 07:22 | CT ---
CT abdomen and pelvis Technique: Multiple axial sections were obtained from above the dome of the diaphragm inferiorly through the pubic symphysis. Oral contrast was utilized. No intravenous contrast was given. Comparison: Prior CT abdomen and pelvis exam of 07/14/19. Findings: Visualized lung bases show nothing acute. Liver has unremarkable noncontrast appearance. Spleen appears within normal limits. Adrenal glands show no nodule. Kidneys show no abnormal calcifications or hydronephrosis. No ureteral calculi are seen. Pancreas appears within normal limits. Gallbladder contains no calcified gallstones. Aorta and iliac vessels shows atherosclerotic calcification without aneurysm. No retroperitoneal adenopathy is seen. Appendix is seen which is normal. No pelvic mass or adenopathy is identified. Questionable wall thickening is seen within portions of the transverse and left colon possibly due to mild colitis. Diverticulosis is noted within the sigmoid colon without inflammatory change of diverticulitis. Bone window settings were reviewed which shows degenerative change within the lower apophyseal joints within the lumbar spine. Mild scattered endplate osteophytes are seen. No acute osseous finding is seen. Impression: 1. Possible mild wall thickening within the descending colon and portions of the transverse colon, mild colitis. 2. Other findings believed to be incidental are nonacute as described above. Diagnostic code #3 This report was dictated in MDT I agree with preliminary report from [facility], finalized on 12/02/19, 1:21 AM Central Time
== END 2019-12-02 02:00 | disposition home or self-care (01) ==
LOC: JD.ED 20:55
DX: K52.9 Noninfective gastroenteritis and colitis, unspecified (principal); K92.2 Gastrointestinal hemorrhage, unspecified; J44.9 Chronic obstructive pulmonary disease, unspecified; E11.9 Type 2 diabetes mellitus without complications; E66.9 Obesity, unspecified; Z68.30 Body mass index [BMI] 30.0-30.9, adult; Z90.49 Acquired absence of other specified parts of digestive tract; F17.210 Nicotine dependence, cigarettes, uncomplicated; Z88.5 Allergy status to narcotic agent; Z88.0 Allergy status to penicillin; Z79.899 Other long term (current) drug therapy
CPT/HCPCS: 36415; 74176; 80053; 83605; 83735; 85025; 86140; 96361; 96374; 96375; 96376; 99284; J1170; J2405; J7030; Q9963

== ENCOUNTER 2020-01-03 20:49 | Observation (INO) | payer OTHER ==
--- NOTE | 2020-01-03 21:10 | EDM.PDOC ---
ED HPI GENERAL MEDICAL PROBLEM - General Chief Complaint: Gastrointestinal Problem Stated Complaint: DIAHRREA,VOMITING BILE Time Seen by Provider: 01/03/20 21:05 Source of Information: Reports: Patient History Limitations: Reports: No Limitations - History of Present Illness INITIAL COMMENTS - FREE TEXT/NARRATIVE: TRIAGE NOTE --patient reports vomiting since the 31 of december. reports she has been unable to keep fluids down. states she took dulcolax in prep for a colonoscopy and then began vomiting black bile. reports last episode of emesis was 2 hours ago. reports being unable to hold down any fluids. [ End ] As above. Patient was due for colonoscopy today but she canceled it. She cannot tell me why she was having the colonoscopy. It is not clear whether it was being done for an acute or chronic problem or whether it was to done as screening. There is also some abdominal discomfort. No fever or any other symptom of acute medical illness otherwise. Risk factors consist of history of kidney stones, alcohol abuse, hepatitis, and other problems chronically. She is a cigarette smoker additionally. It is not clear what if any measures she may have taken in an attempt to moderate her symptoms. abd Pain Score (Numeric/FACES): 9 - Related Data Allergies Allergy/AdvReac Type Severity Reaction Status Date / Time codeine Allergy Severe Hives Verified 01/03/20 21:01 Penicillins Allergy Severe Hives Verified 01/03/20 21:01 Home Meds: Home Meds Cyclobenzaprine [Flexeril] 10 mg PO TID 12/01/19 [History] Rosuvastatin [Crestor] 5 mg PO DAILY 12/01/19 [History] cloNIDine [Catapres] 0.1 mg PO BID 12/01/19 [History] Past Medical History HEENT History: Reports: Impaired Vision Other HEENT History: wears contacts Cardiovascular History: Reports: Other (See Below) Other Cardiovascular History: states has NTG available for chest pain, no other cardiac Hx. Respiratory History: Reports: COPD Gastrointestinal History: Reports: Colon Polyp, Diverticulosis, GERD Other Gastrointestinal History: blood in stool for about 10 years Genitourinary History: Reports: Renal Calculus, Urinary Incontinence FIELD MANAGER History: Reports: Other FIELD MANAGER History: Pelvic surgery--hole in pelvic bone Musculoskeletal History: Reports: Back Pain, Chronic Neurological History: Reports: Other (See Below) Other Neuro History: fibromalgia Psychiatric History: Reports: Anxiety, Depression, Other (See Below) Endocrine/Metabolic History: Reports: Obesity/BMI 30+ - Infectious Disease History Infectious Disease History: Reports: Hepatitis C Other Infectious Disease History: past history - Past Surgical History GI Surgical History: Reports: Colonoscopy, EGD Female Surgical History: Reports: Tubal Ligation Musculoskeletal Surgical History: Reports: Arthroscopic Knee, Other (See Below) Social & Family History - Family History Family Medical History: Noncontributory - Tobacco Use Smoking Status *Q: Current Every Day Smoker Years of Tobacco use: 50 Packs/Tins Daily: 0.5 - Caffeine Use Caffeine Use: Reports: Coffee - Recreational Drug Use Recreational Drug Use: Yes Recreational Drug Type: Reports: Marijuana/Hashish - Living Situation & Occupation Living situation: Reports: , with Spouse Occupation: Unemployed ED ROS GENERAL - Review of Systems Review Of Systems: Comprehensive ROS is negative, except as noted in HPI. ED EXAM, GI/ABD - Physical Exam Exam: See Below Exam Limited By: No Limitations General Appearance: Alert, WD/WN, No Apparent Distress Eyes: Bilateral: EOMI Ears: Normal External Exam Nose: Normal Inspection Throat/Mouth: Normal Inspection Head: Atraumatic, Normocephalic Neck: Normal Inspection, Supple Respiratory/Chest: No Respiratory Distress, Lungs Clear, Normal Breath Sounds, No Accessory Muscle Use Cardiovascular: Tachycardia GI/Abdominal Exam: Soft, Tender (Lower abdominal pain on deep palpation). No: Guarding, Rigid, Rebound Back Exam: Normal Inspection Extremities: Normal Inspection, Non-Tender Neurological: Alert, Oriented, No Motor/Sensory Deficits Psychiatric: Other (Voluble, scattered, unfocused) Skin Exam: Warm, Dry Course - Vital Signs Last Recorded V/S: Last Vital Signs Temp 36.3 C 01/03/20 20:56 Pulse 132 H 01/03/20 20:56 Resp 22 H 01/03/20 20:56 BP 159/132 H 01/03/20 20:56 Pulse Ox 96 01/03/20 20:56 - Orders/Labs/Meds Orders: Active Orders 24 hr Category Date Time Status EKG Documentation Completion [RC] STAT Care 01/03/20 21:10 Active Abdomen Pelvis wo Cont [CT] Stat Exams 01/03/20 22:21 Taken Chest 1V Frontal [CR] Stat Exams 01/03/20 21:10 Taken CULTURE BLOOD [BC] Stat Lab 01/03/20 22:40 Received CULTURE BLOOD [BC] Stat Lab 01/03/20 22:45 Received Sodium Chloride 0.9% [Normal Saline] 1,000 ml Med 01/03/20 21:15 Active IV ASDIRECTED Blood Culture x2 Reflex Set [OM.PC] Stat Oth 01/03/20 22:19 Ordered Medication Orders Sodium Chloride (Normal Saline) 1,000 mls @ 150 mls/hr IV ASDIRECTED JONES Last Admin: 01/03/20 21:19 Dose: 150 mls/hr Labs: Laboratory Tests 01/03/20 01/03/20 01/03/20 Range/Units 21:24 21:24 21:24 WBC 22.33 H (3.98-10.04) K/mm3 RBC 5.76 H (3.98-5.22) M/mm3 Hgb 16.8 H D (11.2-15.7) gm/dl Hct 48.2 H (34.1-44.9) % MCV 83.7 (79.4-94.8) fl MCH 29.2 (25.6-32.2) pg MCHC 34.9 (32.2-35.5) g/dl RDW Std Deviation 49.5 H (36.4-46.3) fL Plt Count 218 (182-369) K/mm3 MPV 11.4 (9.4-12.3) fl Neutrophils % (Manual) 82 H (40-60) % Band Neutrophils % 0 (0-10) % Lymphocytes % (Manual) 14 L (20-40) % Atypical Lymphs % 2 % Monocytes % (Manual) 1 L (2-10) % Eosinophils % (Manual) 0 L (0.7-5.8) % Basophils % (Manual) 1 (0.1-1.2) Platelet Estimate Adequate RBC Morph Comment Normal PT 11.4 (9.7-12.0) SECONDS INR 1.05 APTT 25 (22-31) SECONDS Sodium 139 (136-145) mEq/L Potassium 3.6 (3.5-5.1) mEq/L Chloride 100 (98-107) mEq/L Carbon Dioxide 23 (21-32) mEq/L Anion Gap 19.6 H (5-15) BUN 32 H (7-18) mg/dL Creatinine 1.2 H (0.55-1.02) mg/dL Est Cr Clr Drug Dosing 34.91 mL/min Estimated GFR (MDRD) 46 (>60) mL/min BUN/Creatinine Ratio 26.7 H (14-18) Glucose 200 H (80-115) mg/dL Lactic Acid (0.4-2.0) mmol/L Calcium 9.5 (8.5-10.1) mg/dL Total Bilirubin 0.8 (0.2-1.0) mg/dL AST 10 L (15-37) U/L ALT 15 (14-59) U/L Alkaline Phosphatase 101 (46-116) U/L Troponin I < 0.017 (0.00-0.056) ng/mL Total Protein 8.5 H (6.4-8.2) g/dl Albumin 4.6 (3.4-5.0) g/dl Globulin 3.9 gm/dL Albumin/Globulin Ratio 1.2 (1-2) Lipase 82 (73-393) U/L Urine Color (Yellow) Urine Appearance (Clear) Urine pH (5.0-8.0) Ur Specific [place] (1.005-1.030) Urine Protein (Negative) Urine Glucose (UA) (Negative) Urine Ketones (Negative) Urine Occult Blood (Negative) Urine Nitrite (Negative) Urine Bilirubin (Negative) Urine Urobilinogen (0.2-1.0) Ur Leukocyte Esterase (Negative) U Hyaline Cast (Auto) (0-5) /lpf Urine RBC (0-5) /hpf Urine WBC (0-5) /hpf Ur Squamous Epith Cells (0-5) /hpf Urine Bacteria (FEW) /hpf Urine Mucus (FEW) /hpf 01/03/20 01/03/20 Range/Units 22:10 22:40 WBC (3.98-10.04) K/mm3 RBC (3.98-5.22) M/mm3 Hgb (11.2-15.7) gm/dl Hct (34.1-44.9) % MCV (79.4-94.8) fl MCH (25.6-32.2) pg MCHC (32.2-35.5) g/dl RDW Std Deviation (36.4-46.3) fL Plt Count (182-369) K/mm3 MPV (9.4-12.3) fl Neutrophils % (Manual) (40-60) % Band Neutrophils % (0-10) % Lymphocytes % (Manual) (20-40) % Atypical Lymphs % % Monocytes % (Manual) (2-10) % Eosinophils % (Manual) (0.7-5.8) % Basophils % (Manual) (0.1-1.2) Platelet Estimate RBC Morph Comment PT (9.7-12.0) SECONDS INR APTT (22-31) SECONDS Sodium (136-145) mEq/L Potassium (3.5-5.1) mEq/L Chloride (98-107) mEq/L Carbon Dioxide (21-32) mEq/L Anion Gap (5-15) BUN (7-18) mg/dL Creatinine (0.55-1.02) mg/dL Est Cr Clr Drug Dosing mL/min Estimated GFR (MDRD) (>60) mL/min BUN/Creatinine Ratio (14-18) Glucose (80-115) mg/dL Lactic Acid 1.3 (0.4-2.0) mmol/L Calcium (8.5-10.1) mg/dL Total Bilirubin (0.2-1.0) mg/dL AST (15-37) U/L ALT (14-59) U/L Alkaline Phosphatase (46-116) U/L Troponin I (0.00-0.056) ng/mL Total Protein (6.4-8.2) g/dl Albumin (3.4-5.0) g/dl Globulin gm/dL Albumin/Globulin Ratio (1-2) Lipase (73-393) U/L Urine Color Lisa H (Yellow) Urine Appearance Clear (Clear) Urine pH 5.5 (5.0-8.0) Ur Specific [place] > or = 1.030 (1.005-1.030) Urine Protein 3+ H (Negative) Urine Glucose (UA) Negative (Negative) Urine Ketones 2+ H (Negative) Urine Occult Blood 1+ H (Negative) Urine Nitrite Negative (Negative) Urine Bilirubin 1+ H (Negative) Urine Urobilinogen 0.2 (0.2-1.0) Ur Leukocyte Esterase Negative (Negative) U Hyaline Cast (Auto) 30-40 H (0-5) /lpf Urine RBC 5-10 H (0-5) /hpf Urine WBC 0-5 (0-5) /hpf Ur Squamous Epith Cells 5-10 H (0-5) /hpf Urine Bacteria Few (FEW) /hpf Urine Mucus Moderate H (FEW) /hpf Meds: Medications Generic Name Dose Route Start Last Admin Trade Name Dimitrios PRN Reason Stop Dose Admin Sodium Chloride 1,000 mls @ 150 mls/hr 01/03/20 21:15 01/03/20 21:19 Normal Saline IV 150 mls/hr ASDIRECTED JONES Administration Discontinued Medications Generic Name Dose Route Start Last Admin Trade Name Freq PRN Reason Stop Dose Admin Meropenem 1 gm/ Sodium 100 mls @ 200 mls/hr 01/03/20 23:28 01/03/20 23:43 Chloride IV 01/03/20 23:57 200 mls/hr ONETIME ONE Administration Ondansetron HCl 4 mg 01/03/20 22:35 01/03/20 22:40 Zofran IVPUSH 01/03/20 22:36 4 mg ONETIME ONE Administration - Re-Assessments/Exams Free Text/Narrative Re-Assessment/Exam: 01/04/20 00:29 The patient has settled down with Zofran and IV fluids. Concern is 22,000 white count. Lactic acid is within the reference range. Cultures have been collected. Empiric therapy with Merrem. CT scan shows some evidence of colitis which does not fully explain the presentation. Lungs are clear no evidence of infection in the chest and urine is likewise unremarkable. Patient is admitted into observation status. Dr. Mendez came to the emergency department to evaluate the patient and she is being admitted to the hospitalist service. Departure - Departure Time of Disposition: 00:30 Disposition: Refer to Observation Condition: Fair Clinical Impression: Abnormal CT of the abdomen Abdominal pain Qualifiers: Abdominal location: lower abdomen, unspecified Qualified Code(s): R10.30 - Lower abdominal pain, unspecified Leukocytosis, unspecified Qualifiers: Leukocytosis type: unspecified Qualified Code(s): D72.829 - Elevated white blood cell count, unspecified - Discharge Information Referrals: Talia Thomson PA-C [Primary Care Provider] - Forms: ED Department Discharge Sepsis Event Note - Evaluation Sepsis Screening Result: No Definite Risk - Focused Exam Vital Signs: Vital Signs Temp Pulse Resp BP Pulse Ox 01/03/20 20:56 36.3 C 132 H 22 H 159/132 H 96 Date Exam was Performed: 01/04/20 Time Exam was Performed: 00:28 - My Orders Last 24 Hours: My Active Orders 01/03/20 21:10 EKG Documentation Completion [RC] STAT Chest 1V Frontal [CR] Stat 01/03/20 21:15 Sodium Chloride 0.9% [Normal Saline] 1,000 ml IV ASDIRECTED 01/03/20 22:19 Blood Culture x2 Reflex Set [OM.PC] Stat 01/03/20 22:21 Abdomen Pelvis wo Cont [CT] Stat 01/03/20 22:40 CULTURE BLOOD [BC] Stat 01/03/20 22:45 CULTURE BLOOD [BC] Stat - Assessment/Plan Last 24 Hours: My Active Orders 01/03/20 21:10 EKG Documentation Completion [RC] STAT Chest 1V Frontal [CR] Stat 01/03/20 21:15 Sodium Chloride 0.9% [Normal Saline] 1,000 ml IV ASDIRECTED 01/03/20 22:19 Blood Culture x2 Reflex Set [OM.PC] Stat 01/03/20 22:21 Abdomen Pelvis wo Cont [CT] Stat 01/03/20 22:40 CULTURE BLOOD [BC] Stat 01/03/20 22:45 CULTURE BLOOD [BC] Stat
[2020-01-03] MEDS ORDERED: Sodium Chloride 0.9% 1,000 ML IV SCH (21:15)
[2020-01-03] MEDS ORDERED: Ondansetron 4 MG/2 ML SDV IVPUSH ONE (22:35)
[2020-01-03] MEDS ORDERED: Meropenem 1 GM in Sodium Chloride 0.9% 100 ML IV ONE (23:28)
[2020-01-04] MEDS ORDERED: Acetaminophen 325 MG Tab PO PRN (00:22)
[2020-01-04] MEDS ORDERED: Ondansetron 4 MG/2 ML SDV IV PRN (00:22)
[2020-01-04] MEDS ORDERED: Sodium Chloride 0.9% 1,000 ML IV SCH (00:30)
[2020-01-04] MEDS ORDERED: Meropenem Premix 500 MG in Premix Bag 1 BAG IV SCH ×2 (00:30→08:00)
--- NOTE | 2020-01-04 00:53 | PCM.HP.2 ---
H&P History of Present Illness - General Date of Service: 01/04/20 Admit Problem/Dx: Admission Diagnosis/Problem Admission Diagnosis/Problem Colitis Source of Information: Patient History Limitations: Reports: No Limitations - History of Present Illness Initial Comments - Free Text/Narative: Patient is a 64-year-old lady who presented to the emergency department complaining of abdominal pain, nausea and vomiting predominantly of bilious vomitus along with diarrhea. Patient reports that she had visited her primary care physician earlier today secondary to a complaint of GI bleeding. The patient was scheduled to have a colonoscopy today and had undergone colon prep when her symptoms started. The patient had a similar episode approximately 1 year ago when she was undergoing colon prep for a routine colonoscopy. Patient says that she has been unable to keep anything down other than ice chips. Patient did not have any fresh blood in her bowel movements. Patient has had pain in the right side of her abdomen that has not been relieved or aggravated by anything in particular. The patient also has not been able to keep any of her medications down. She has been taking medication for back pain and also clonidine for anxiety. The patient still continues to smoke. Patient also has denied any fever or chills. She has had no dizziness or lightheadedness. Onset of Symptoms: Reports: Sudden Duration of Symptoms: Reports: Day(s): Location: Reports: Abdomen Quality: Reports: Dull Severity: Moderate Improves with: Reports: Medication (Given Zofran in the emergency department) Worsens with: Reports: Eating Context: Reports: Other (Colonoscopy prep) Associated Symptoms: Reports: Nausea/Vomiting abd Pain Score (Numeric/FACES): 9 - Related Data Allergies/Adverse Reactions: Allergies Allergy/AdvReac Type Severity Reaction Status Date / Time codeine Allergy Severe Hives Verified 01/03/20 21:01 Penicillins Allergy Severe Hives Verified 01/03/20 21:01 Home Medications: Home Meds Cyclobenzaprine [Flexeril] 10 mg PO TID 12/01/19 [History] Rosuvastatin [Crestor] 5 mg PO DAILY 12/01/19 [History] cloNIDine [Catapres] 0.1 mg PO BID 12/01/19 [History] Albuterol [Ventolin HFA] 1 inh INH BID PRN 01/04/20 [History] Mirtazapine 15 mg PO BEDTIME 01/04/20 [History] clonazePAM [Clonazepam] 1 mg PO DAILY PRN 01/04/20 [History] Past Medical History HEENT History: Reports: Impaired Vision Other HEENT History: wears contacts Cardiovascular History: Reports: Other (See Below) Other Cardiovascular History: states has NTG available for chest pain, no other cardiac Hx. Respiratory History: Reports: COPD Gastrointestinal History: Reports: Colon Polyp, Diverticulosis, GERD Other Gastrointestinal History: blood in stool for about 10 years Genitourinary History: Reports: Renal Calculus, Urinary Incontinence [employer] History: Reports: Other OB/BYN History: Pelvic surgery--hole in pelvic bone Musculoskeletal History: Reports: Back Pain, Chronic Neurological History: Reports: Other (See Below) Other Neuro History: fibromalgia Psychiatric History: Reports: Anxiety, Depression, Other (See Below) Endocrine/Metabolic History: Reports: Obesity/BMI 30+ Hematologic History: Reports: None Immunologic History: Reports: None - Infectious Disease History Infectious Disease History: Reports: Hepatitis C Other Infectious Disease History: past history - Past Surgical History GI Surgical History: Reports: Colonoscopy, EGD Female Surgical History: Reports: Tubal Ligation Musculoskeletal Surgical History: Reports: Arthroscopic Knee, Other (See Below) Social & Family History - Family History Family Medical History: Noncontributory - Tobacco Use Smoking Status *Q: Current Every Day Smoker Years of Tobacco use: 50 Packs/Tins Daily: 0.5 - Caffeine Use Caffeine Use: Reports: Coffee - Recreational Drug Use Recreational Drug Use: Yes Recreational Drug Type: Reports: Marijuana/Hashish - Living Situation & Occupation Living situation: Reports: , with Spouse Occupation: Unemployed H&P Review of Systems - Review of Systems: Review Of Systems: See Below General: Reports: Weakness, Decreased Appetite HEENT: Reports: No Symptoms Pulmonary: Reports: No Symptoms Cardiovascular: Reports: No Symptoms Gastrointestinal: Reports: Abdominal Pain, Diarrhea, Nausea, Vomiting Genitourinary: Reports: No Symptoms Musculoskeletal: Reports: No Symptoms Skin: Reports: No Symptoms Psychiatric: Reports: No Symptoms Neurological: Reports: No Symptoms Hematologic/Lymphatic: Reports: No Symptoms Immunologic: Reports: No Symptoms Exam - Exam Exam: See Below - Vital Signs Vital Signs: Last Vital Signs Temp 36.3 C 01/03/20 20:56 Pulse 132 H 01/03/20 20:56 Resp 22 H 01/03/20 20:56 BP 159/132 H 01/03/20 20:56 Pulse Ox 96 01/03/20 20:56 Weight: 66.224 kg - Exam Quality Assessment: No: Supplemental Oxygen General: Alert, Oriented, Cooperative HEENT: Conjunctiva Clear, EOMI, Hearing Intact, Nares Patent, Other (Poor Oral hygiene). No: Mucosa Moist & [place] (Dry) Neck: Supple, Trachea Midline Lungs: Clear to Auscultation, Normal Respiratory Effort Cardiovascular: Regular Rhythm, Normal S1, Normal S2, Tachycardia (Rate 108) GI/Abdominal Exam: Soft, Non-Tender, No Distention, No Abnormal Bruit. No: Normal Bowel Sounds (Hyperactive), Guarding, Rigid, Rebound Back Exam: Normal Inspection Extremities: Normal Inspection, No Pedal Edema Skin: Warm, Dry, Intact Neurological: Cranial Nerves Intact Neuro Extensive - Mental Status: Alert, Oriented x3 Psychiatric: Alert, Normal Affect - Patient Data Lab Results Last 24 hrs: Laboratory Results - last 24 hr 01/03/20 01/03/20 01/03/20 Range/Units 21:24 21:24 21:24 WBC 22.33 H (3.98-10.04) K/mm3 RBC 5.76 H (3.98-5.22) M/mm3 Hgb 16.8 H D (11.2-15.7) gm/dl Hct 48.2 H (34.1-44.9) % MCV 83.7 (79.4-94.8) fl MCH 29.2 (25.6-32.2) pg MCHC 34.9 (32.2-35.5) g/dl RDW Std Deviation 49.5 H (36.4-46.3) fL Plt Count 218 (182-369) K/mm3 MPV 11.4 (9.4-12.3) fl Neutrophils % (Manual) 82 H (40-60) % Band Neutrophils % 0 (0-10) % Lymphocytes % (Manual) 14 L (20-40) % Atypical Lymphs % 2 % Monocytes % (Manual) 1 L (2-10) % Eosinophils % (Manual) 0 L (0.7-5.8) % Basophils % (Manual) 1 (0.1-1.2) Platelet Estimate Adequate RBC Morph Comment Normal PT 11.4 (9.7-12.0) SECONDS INR 1.05 APTT 25 (22-31) SECONDS Sodium 139 (136-145) mEq/L Potassium 3.6 (3.5-5.1) mEq/L Chloride 100 (98-107) mEq/L Carbon Dioxide 23 (21-32) mEq/L Anion Gap 19.6 H (5-15) BUN 32 H (7-18) mg/dL Creatinine 1.2 H (0.55-1.02) mg/dL Est Cr Clr Drug Dosing 34.91 mL/min Estimated GFR (MDRD) 46 (>60) mL/min BUN/Creatinine Ratio 26.7 H (14-18) Glucose 200 H (80-115) mg/dL Lactic Acid (0.4-2.0) mmol/L Calcium 9.5 (8.5-10.1) mg/dL Total Bilirubin 0.8 (0.2-1.0) mg/dL AST 10 L (15-37) U/L ALT 15 (14-59) U/L Alkaline Phosphatase 101 (46-116) U/L Troponin I < 0.017 (0.00-0.056) ng/mL Total Protein 8.5 H (6.4-8.2) g/dl Albumin 4.6 (3.4-5.0) g/dl Globulin 3.9 gm/dL Albumin/Globulin Ratio 1.2 (1-2) Lipase 82 (73-393) U/L Urine Color (Yellow) Urine Appearance (Clear) Urine pH (5.0-8.0) Ur Specific [place] (1.005-1.030) Urine Protein (Negative) Urine Glucose (UA) (Negative) Urine Ketones (Negative) Urine Occult Blood (Negative) Urine Nitrite (Negative) Urine Bilirubin (Negative) Urine Urobilinogen (0.2-1.0) Ur Leukocyte Esterase (Negative) U Hyaline Cast (Auto) (0-5) /lpf Urine RBC (0-5) /hpf Urine WBC (0-5) /hpf Ur Squamous Epith Cells (0-5) /hpf Urine Bacteria (FEW) /hpf Urine Mucus (FEW) /hpf 01/03/20 01/03/20 Range/Units 22:10 22:40 WBC (3.98-10.04) K/mm3 RBC (3.98-5.22) M/mm3 Hgb (11.2-15.7) gm/dl Hct (34.1-44.9) % MCV (79.4-94.8) fl MCH (25.6-32.2) pg MCHC (32.2-35.5) g/dl RDW Std Deviation (36.4-46.3) fL Plt Count (182-369) K/mm3 MPV (9.4-12.3) fl Neutrophils % (Manual) (40-60) % Band Neutrophils % (0-10) % Lymphocytes % (Manual) (20-40) % Atypical Lymphs % % Monocytes % (Manual) (2-10) % Eosinophils % (Manual) (0.7-5.8) % Basophils % (Manual) (0.1-1.2) Platelet Estimate RBC Morph Comment PT (9.7-12.0) SECONDS INR APTT (22-31) SECONDS Sodium (136-145) mEq/L Potassium (3.5-5.1) mEq/L Chloride (98-107) mEq/L Carbon Dioxide (21-32) mEq/L Anion Gap (5-15) BUN (7-18) mg/dL Creatinine (0.55-1.02) mg/dL Est Cr Clr Drug Dosing mL/min Estimated GFR (MDRD) (>60) mL/min BUN/Creatinine Ratio (14-18) Glucose (80-115) mg/dL Lactic Acid 1.3 (0.4-2.0) mmol/L Calcium (8.5-10.1) mg/dL Total Bilirubin (0.2-1.0) mg/dL AST (15-37) U/L ALT (14-59) U/L Alkaline Phosphatase (46-116) U/L Troponin I (0.00-0.056) ng/mL Total Protein (6.4-8.2) g/dl Albumin (3.4-5.0) g/dl Globulin gm/dL Albumin/Globulin Ratio (1-2) Lipase (73-393) U/L Urine Color Lisa H (Yellow) Urine Appearance Clear (Clear) Urine pH 5.5 (5.0-8.0) Ur Specific [place] > or = 1.030 (1.005-1.030) Urine Protein 3+ H (Negative) Urine Glucose (UA) Negative (Negative) Urine Ketones 2+ H (Negative) Urine Occult Blood 1+ H (Negative) Urine Nitrite Negative (Negative) Urine Bilirubin 1+ H (Negative) Urine Urobilinogen 0.2 (0.2-1.0) Ur Leukocyte Esterase Negative (Negative) U Hyaline Cast (Auto) 30-40 H (0-5) /lpf Urine RBC 5-10 H (0-5) /hpf Urine WBC 0-5 (0-5) /hpf Ur Squamous Epith Cells 5-10 H (0-5) /hpf Urine Bacteria Few (FEW) /hpf Urine Mucus Moderate H (FEW) /hpf Result Diagrams: 01/03/20 21:24 01/03/20 21:24 Sepsis Event Note - Evaluation Sepsis Screening Result: No Definite Risk - Focused Exam Vital Signs: Vital Signs Temp Pulse Resp BP Pulse Ox 01/03/20 20:56 36.3 C 132 H 22 H 159/132 H 96 Date Exam was Performed: 01/04/20 Time Exam was Performed: 01:20 *Q Meaningful Use (ADM) - VTE *Q VTE Pharmacological Contraindications *Q: Risk of Bleeding - Problem List (1) Acute renal insufficiency SNOMED Code(s): 589655054 ICD Code: N28.9 - DISORDER OF KIDNEY AND URETER, UNSPECIFIED Status: Acute Current Visit: Yes (2) Colitis SNOMED Code(s): 59608686 ICD Code: K52.9 - NONINFECTIVE GASTROENTERITIS AND COLITIS, UNSPECIFIED Status: Acute Priority: High Current Visit: Yes (3) Abdominal pain SNOMED Code(s): 36730903 ICD Code: R10.9 - UNSPECIFIED ABDOMINAL PAIN Status: Acute Priority: High Current Visit: Yes Qualifiers: Abdominal location: lower abdomen, unspecified Qualified Code(s): R10.30 - Lower abdominal pain, unspecified (4) Erythrocytosis SNOMED Code(s): 336012309, 183456947 ICD Code: D75.1 - SECONDARY POLYCYTHEMIA Status: Acute Priority: High Current Visit: Yes (5) Leukocytosis SNOMED Code(s): 790543453, 374642857 ICD Code: D72.829 - ELEVATED WHITE BLOOD CELL COUNT, UNSPECIFIED Status: Acute Priority: High Current Visit: Yes Qualifiers: Leukocytosis type: unspecified Qualified Code(s): D72.829 - Elevated white blood cell count, unspecified (6) Dehydration SNOMED Code(s): 26182391 ICD Code: E86.0 - DEHYDRATION Status: Acute Current Visit: No (7) Lower GI bleed SNOMED Code(s): 95026939 ICD Code: K92.2 - GASTROINTESTINAL HEMORRHAGE, UNSPECIFIED Status: Suspected Priority: High Current Visit: Yes (8) Nausea and vomiting SNOMED Code(s): 26213580 ICD Code: R11.2 - NAUSEA WITH VOMITING, UNSPECIFIED Status: Acute Priority: High Current Visit: Yes Qualifiers: Vomiting type: bilious vomiting Qualified Code(s): R11.14 - Bilious vomiting Problem List Initiated/Reviewed/Updated: Yes Orders Last 24hrs: Active Orders 24 hr Category Date Time Status Patient Status [ADT] Routine ADT 01/04/20 00:22 Active Antiembolic Devices [RC] PER UNIT ROUTINE Care 01/04/20 00:31 Active EKG Documentation Completion [RC] STAT Care 01/03/20 21:10 Active Oxygen Therapy [RC] PRN Care 01/04/20 00:22 Active Up ad Dodie [RC] ASDIRECTED Care 01/04/20 00:22 Active VTE/DVT Education [RC] PER UNIT ROUTINE Care 01/04/20 00:22 Active Vital Signs [RC] Q4H Care 01/04/20 00:22 Active Clear Liquid Diet [DIET] Diet 01/04/20 Breakfast Active Abdomen Pelvis wo Cont [CT] Stat Exams 01/03/20 22:21 Taken Chest 1V Frontal [CR] Stat Exams 01/03/20 21:10 Taken CBC WITH AUTO DIFF [HEME] AM Lab 01/04/20 05:11 Ordered COMPREHENSIVE METABOLIC PN,CMP [CHEM] AM Lab 01/04/20 05:11 Ordered CULTURE BLOOD [BC] Stat Lab 01/03/20 22:40 Received CULTURE BLOOD [BC] Stat Lab 01/03/20 22:45 Received Acetaminophen [Tylenol] Med 01/04/20 00:22 Active 650 mg PO Q4H PRN Meropenem Premix [Meropenem] 500 mg Med 01/04/20 00:30 Active Premix Bag 1 bag IV Q8H Nicotine [Habitrol] Med 01/04/20 00:30 Active 14 mg TRDERM DAILY Ondansetron [Zofran] Med 01/04/20 00:22 Active 4 mg IV Q4H PRN Sodium Chloride 0.9% [Normal Saline] 1,000 ml Med 01/03/20 21:15 Active IV ASDIRECTED Sodium Chloride 0.9% [Normal Saline] 1,000 ml Med 01/04/20 00:30 Active IV ASDIRECTED cloNIDine [Catapres] Med 01/04/20 09:00 Active 0.1 mg PO BID Blood Culture x2 Reflex Set [OM.PC] Stat Oth 01/03/20 22:19 Ordered Sequential Compression Device [OM.PC] Per Unit Routine Oth 01/04/20 00:27 Ordered VTE Pharmacological Contraindications [AST] Per Unit Oth 01/04/20 00:22 Ordered Routine Resuscitation Status Routine Resus Stat 01/04/20 00:22 Ordered Medication Orders Acetaminophen (Tylenol) 650 mg PO Q4H PRN PRN Reason: Pain (Mild 1-3)/fever Clonidine HCl (Catapres) 0.1 mg PO BID JONES Sodium Chloride (Normal Saline) 1,000 mls @ 150 mls/hr IV ASDIRECTED JONES Last Admin: 01/03/20 21:19 Dose: 150 mls/hr Meropenem/Sodium Chloride 500 (mg/ Premix) 50 mls @ 100 mls/hr IV Q8H JONES Sodium Chloride (Normal Saline) 1,000 mls @ 125 mls/hr IV ASDIRECTED JONES Nicotine (Habitrol) 14 mg TRDERM DAILY JONES Ondansetron HCl (Zofran) 4 mg IV Q4H PRN PRN Reason: Nausea/Vomiting Assessment/Plan Comment:: Patient is a 64-year-old lady who will be admitted to observation. On CT examination the patient did have mild beckoning of her ascending colon which is consistent with her history of nausea and vomiting with diarrhea. It is interesting that the patient had a similar reaction a year ago when she underwent a colon prep as well. The patient's white blood cell count is elevated at 22,000 and I suspect this is secondary to hemoconcentration. She will however, be placed on meropenem and once her white cell count has normalized this can be de-escalated. The patient does show an allergy to penicillin however, she had meropenem in the emergency room. The patient also has exhibited some mild renal insufficiency as well as some hemoconcentration that I suspect will also will resolve with fluids. I placed the patient on normal saline at 125 mL/h. Because of the history of her having a recent lower GI bleed she will not be placed on pharmacological anticoagulation. I suspect this is likely low volume bleed however, the patient should still have a colonoscopy as an outpatient. I have ordered SCDs. Patient will also be kept on a clear liquid diet for now secondary to her nausea and vomiting. The patient will also be given Zofran IV as needed for her nausea and vomiting. Also ordered repeat laboratory studies for the morning. Also noted to have a glucose of 200 mg/dL and hemoglobin A1c was ordered. Her hemoglobin A1c was at 5.7%. Patient's diet will be advanced as she can tolerate likely tomorrow. - Mortality Measure Prognosis:: Good
[2020-01-04 01:12] LABS: HEMOGLOBIN A1C 5.7 % (4.50-6.20)
[2020-01-04] MEDS: Nicotine 14 MG/24 Hr Patch TRDERM SCH ×2 (01:43→08:36)
[2020-01-04] MEDS ORDERED: cloNIDine 0.1 MG Tab PO SCH (09:00)
[2020-01-04] MEDS ORDERED: Albuterol 6.7 GM Inhaler INH PRN (09:09)
--- NOTE | 2020-01-04 09:21 | CR ---
Chest: Portable view of the chest was obtained. Comparison: Previous chest x-ray of 07/11/17. Heart size and mediastinum are normal. Lungs are clear with no acute parenchymal change. Bony structures are grossly intact. Impression: 1. Nothing acute is seen on portable chest x-ray. Diagnostic code #1 This report was dictated in MDT
--- NOTE | 2020-01-04 09:21 | CT ---
CT abdomen and pelvis Technique: Multiple axial sections were obtained from above the dome of the diaphragm inferiorly through the pubic symphysis. Intravenous contrast was not given. No oral contrast is seen. Comparison: Prior CT abdomen and pelvis exam of 04/24/19. Findings: Visualized lung bases show nothing acute. Liver contains no focal abnormality. Spleen appears within normal limits. Very minimal calcifications are seen within both kidneys. Kidneys otherwise appear within normal limits. Adrenal glands show no nodule. Pancreas shows no abnormality. Gallbladder contains no calcified gallstones. Aorta shows atherosclerotic calcification which continues into the iliac vessels. No retroperitoneal adenopathy or mesenteric abnormalities are seen. No pelvic mass or adenopathy is seen. Prior study showed bowel wall thickening within the sigmoid and ascending colon. These findings do not appear as prominent as on previous exam. Minimal areas of residual thickening is seen. No bowel dilatation is seen. Appendix not visualized with certainty. No free fluid or inflammatory change is identified. Bone window settings were reviewed which shows mild degenerative change within the lower lumbar spine. No acute osseous finding is appreciated. Impression: 1. Improved bowel wall thickening within the ascending and sigmoid regions from prior exam. Minimal areas of wall thickening persist. 2. Vague calcifications within both kidneys compatible with nonobstructing calculi. 3. Other findings believed to be incidental as noted above. No acute abnormality is otherwise seen. Diagnostic code #2 This report was dictated in MDT I agree with preliminary report from [facility], finalized on 01/04/20, 12:25 AM Central Daylight Time
[2020-01-04] MEDS: Potassium Chloride 10 MEQ in Premix Bag 1 BAG IV SCH ×4 (12:13→19:31)
[2020-01-04] MEDS: Lactated Ringers 1,000 ML IV SCH (14:00)
--- NOTE | 2020-01-04 15:12 | PCM.SN.2 ---
- Free Text/Narrative Note: Patient admitted to the floor in the senior patrol agent hours of 01/04/[address] Ntahan Mendez. Admission H&P was done at that time and therefore this is an update to that admission. Patient examined at bedside by myself and Dr. Vann, hospitalist. Patient reports her pain is improved and she feels much better. She was started on meropenem and this will be switched to p.o. Flagyl. Was drawn this morning show an improved white count from 22.33-17.67. Calcium 3.4 was low and supplemented with 4K riders. BUN is improved to 26 and creatinine 0.9 with a GFR greater than 60. In discussion with the patient she reports that she was supposed to undergo a colonoscopy with Dr. Soriano, general surgery, on 02/01/2020. She reports symptoms began while performing her bowel prep. She reports that she has had rectal bleeding and a colonoscopy is definitely indicated. Contacted Dr. Soriano to discuss plan going forward. She reports she would like the patient's colitis to resolve before she attempts a colonoscopy. She would like the patient to follow-up with her in the clinic after she is discharged from the hospital. In this case patient's diet will be advanced to regular. The fluids have been decreased to LR at 75 mils an hour. Bowel sounds remain active. Abdomen is nontender in all quadrants. Lung sounds are clear. Normal S1 and S2 noted with no murmur. Pedal edema noted. Patient has been up ambulating. Likely discharge tomorrow, 01/05/2020 if patient continues to tolerate treatment and diet.
[2020-01-04] MEDS: metroNIDAZOLE 500 MG Tab PO SCH ×2 (16:13→22:20)
[2020-01-04] MEDS ORDERED: Mirtazapine 15 MG Tab PO SCH (21:00)
[2020-01-05] MEDS: Lactated Ringers 1,000 ML IV SCH (03:50)
[2020-01-05] MEDS: metroNIDAZOLE 500 MG Tab PO SCH (06:26)
[2020-01-05] MEDS: Nicotine 14 MG/24 Hr Patch TRDERM SCH (08:24)
[2020-01-05] MEDS ORDERED: Potassium Chloride 20 MEQ Tab.ER PO ONE (08:37)
[2020-01-05 08:51] VITALS: BP 145/73; PULSE 95
--- NOTE | 2020-01-05 09:14 | PCM.DCSUM1 ---
Discharge Summary - Hospital Course Free Text/Narrative:: Patient is a pleasant 64 yo female who was admitted to the medical floor for observation and further management of abdominal pain, N/V and reported diarrhea secondary to colitis following a colonoscopy prep. CT of the abdomen and pelvis showed mild beckoning of her ascending colon but otherwise imaging was negative for any acute intraabdominal abnormality. [place] admission [place]BC [place] [id number] probably from dehydration/hemoconcentration as patient was afebrile, and VS stable. Patient was initially kept NPO, and placed on meropenem IV around the clock. She was also placed IVF with normal saline at 125 ml/hr. The case was consulted over the phone with her general surgeon Dr. Soriano who recommended to follow up with patient upon hospital discharge and postpone colonoscopy. Upon initial management, patient improved significantly. Antibiotics were changed from IV meropenem to oral metronidazole tid, and diet was advanced as tolerate it. Patient is now on regular diet, having regular BM, and asymptomatic. VS are stable. Therefore, she will be discharged from the hospital today in an improved and stable condition. She will follow up with PCP in 7 days of hospital discharge and Dr. Ramsey in general surgery for further evaluation. She will remain on oral metronidazole x 3 additional days. Diagnosis: Stroke: No Modified Vaiden Scale: No Symptoms at All Modified Vaiden Scale Score: 0 - Discharge Data Discharge Date: 01/05/20 Discharge Disposition: Home, Self-Care 01 Condition: Good - Referral to Home Health Reason for Homebound Status: Improved and stable Primary Care Physician: CHERIE Henry - Patient Instructions Diet: Regular Diet as Tolerated Activity: As Tolerated Driving: May Drive Today Showering/Bathing: May Shower Notify Provider of: Fever, Increased Pain, Swelling and Redness, Nausea and/or Vomiting - Discharge Plan *PRESCRIPTION DRUG MONITORING PROGRAM REVIEWED*: Not Applicable *COPY OF PRESCRIPTION DRUG MONITORING REPORT IN PATIENT EMILY: Not Applicable Prescriptions/Med Rec: metroNIDAZOLE [Flagyl] 500 mg PO Q8H 3 Days #9 tablet Nicotine [Habitrol] 14 mg TRDERM DAILY 30 Days #30 patch Home Medications: Home Meds Cyclobenzaprine [Flexeril] 10 mg PO TID PRN 12/01/19 [History] Rosuvastatin [Crestor] 5 mg PO DAILY 12/01/19 [History] Albuterol [Ventolin HFA] 1 inh INH BID PRN 01/04/20 [History] Mirtazapine 15 mg PO BEDTIME 01/04/20 [History] clonazePAM [Clonazepam] 1 mg PO DAILY PRN 01/04/20 [History] Nicotine [Habitrol] 14 mg TRDERM DAILY 30 Days #30 patch 01/05/20 [Rx] metroNIDAZOLE [Flagyl] 500 mg PO Q8H 3 Days #9 tablet 01/05/20 [Rx] Oxygen Therapy Mode: Room Air Patient Handouts: Steps to Quit Smoking Forms: ED Department Discharge Referrals: Talia Thomson PA-C [Primary Care Provider] - - Discharge Summary/Plan Comment DC Time >30 min.: No Discharge Summary/Plan Comment: Patient is a pleasant 64 yo female who was admitted to the medical floor for observation and further management of abdominal pain, N/V and reported diarrhea secondary to colitis following a colonoscopy prep. CT of the abdomen and pelvis showed mild beckoning of her ascending colon but otherwise imaging was negative for any acute intraabdominal abnormality. [place]BC [place] [id number] probably from dehydration/hemoconcentration as patient was afebrile, and VS stable. Patient was initially kept NPO, and placed on meropenem IV around the clock. She was also placed IVF with normal saline at 125 ml/hr. The case was consulted over the phone with her general surgeon Dr. Soriano who recommended to follow up with patient upon hospital discharge and postpone colonoscopy. Upon initial management, patient improved significantly. Antibiotics were changed from IV meropenem to oral metronidazole tid, and diet was advanced as tolerate it. Patient is now on regular diet, having regular BM, and asymptomatic. VS are stable. Therefore, she will be discharged from the hospital today in an improved and stable condition. She will follow up with PCP in 7 days of hospital discharge and Dr. Ramsey in general surgery for further evaluation. She will remain on oral metronidazole x 3 additional days. - Patient Data Vitals - Most Recent: Last Vital Signs Temp 97.9 F 01/05/20 08:29 Pulse 95 01/05/20 08:29 Resp 15 01/05/20 08:29 BP 145/73 H 01/05/20 08:29 Pulse Ox 96 01/05/20 08:29 Weight - Most Recent: 137 lb 14.4 oz I&O - Last 24 hours: Intake & Output 01/04/20 01/05/20 01/05/20 22:59 06:59 14:59 Intake Total 2336 1302 Output Total 400 1100 Balance 1936 202 Lab Results - Last 24 hrs: Laboratory Results - last 24 hr 01/05/20 01/05/20 Range/Units 06:40 06:40 WBC 7.49 (3.98-10.04) K/mm3 RBC 4.47 (3.98-5.22) M/mm3 Hgb 12.9 D (11.2-15.7) gm/dl Hct 38.5 (34.1-44.9) % MCV 86.1 (79.4-94.8) fl MCH 28.9 (25.6-32.2) pg MCHC 33.5 (32.2-35.5) g/dl RDW Std Deviation 48.3 H (36.4-46.3) fL Plt Count 138 L (182-369) K/mm3 MPV 11.2 (9.4-12.3) fl Neut % (Auto) 55.4 (34.0-71.1) % Lymph % (Auto) 30.6 (19.3-51.7) % [place] % (Auto) 9.9 (4.7-12.5) % Eos % (Auto) 1.9 (0.7-5.8) Baso % (Auto) 2.1 H (0.1-1.2) % Neut # (Auto) 4.15 (1.56-6.13) K/mm3 Lymph # (Auto) 2.29 (1.18-3.74) K/mm3 [place] # (Auto) 0.74 H (0.24-0.36) K/mm3 Eos # (Auto) 0.14 (0.04-0.36) K/mm3 Baso # (Auto) 0.16 H (0.01-0.08) K/mm3 Manual Slide Review Not Reportable Sodium 141 (136-145) mEq/L Potassium 3.3 L (3.5-5.1) mEq/L Chloride 106 (98-107) mEq/L Carbon Dioxide 27 (21-32) mEq/L Anion Gap 11.3 (5-15) BUN 13 (7-18) mg/dL Creatinine 0.8 (0.55-1.02) mg/dL Est Cr Clr Drug Dosing 52.37 mL/min Estimated GFR (MDRD) > 60 (>60) mL/min BUN/Creatinine Ratio 16.3 (14-18) Glucose 120 H (80-115) mg/dL Calcium 8.5 (8.5-10.1) mg/dL Total Bilirubin 0.7 (0.2-1.0) mg/dL AST 26 (15-37) U/L ALT 35 (14-59) U/L Alkaline Phosphatase 71 (46-116) U/L Total Protein 6.0 L (6.4-8.2) g/dl Albumin 3.1 L (3.4-5.0) g/dl Globulin 2.9 gm/dL Albumin/Globulin Ratio 1.1 (1-2) BENJA Results - Last 24 hrs: Microbiology 01/03/20 22:45 Aerobic Blood Culture - Preliminary Blood - Venous - Lab Draw NO GROWTH AFTER 1 DAY Anaerobic Blood Culture - Preliminary NO GROWTH AFTER 1 DAY 01/03/20 22:40 Aerobic Blood Culture - Preliminary Blood - Venous NO GROWTH AFTER 1 DAY Anaerobic Blood Culture - Preliminary NO GROWTH AFTER 1 DAY Med Orders - Current: Current Medications Acetaminophen (Tylenol) 650 mg PO Q4H PRN PRN Reason: Pain (Mild 1-3)/fever Albuterol (Proventil Hfa) 0 gm INH BID PRN PRN Reason: Dyspnea Lactated Ringer's (Ringers, Lactated) 1,000 mls @ 75 mls/hr IV ASDIRECTED [facility] Last Admin: 01/05/20 03:50 Dose: 75 mls/hr Metronidazole (Flagyl) 500 mg PO Q8H [facility] Last Admin: 01/05/20 06:26 Dose: 500 mg Mirtazapine (Remeron) 15 mg PO BEDTIME [facility] Last Admin: 01/04/20 20:33 Dose: 15 mg Miscellaneous Information (Remove Patch) 1 ea TRDERM DAILY [facility] Last Admin: 01/05/20 08:27 Dose: 1 ea Nicotine (Habitrol) 14 mg TRDERM DAILY [facility] Last Admin: 01/05/20 08:24 Dose: 14 mg Ondansetron HCl (Zofran) 4 mg IV Q4H PRN PRN Reason: Nausea/Vomiting Discontinued Medications Clonidine HCl (Catapres) 0.1 mg PO BID [facility] Last Admin: 01/04/20 08:30 Dose: 0.1 mg Sodium Chloride (Normal Saline) 1,000 mls @ 150 mls/hr IV ASDIRECTED [facility] Last Infusion: 01/04/20 01:46 Dose: 125 mls/hr Meropenem 1 gm/ Sodium (Chloride) 100 mls @ 200 mls/hr IV ONETIME ONE Stop: 01/03/20 23:57 Last Infusion: 01/04/20 01:45 Dose: Infused Meropenem/Sodium Chloride 500 (mg/ Premix) 50 mls @ 100 mls/hr IV Q8H [facility] Last Admin: 01/04/20 01:44 Dose: Not Given Sodium Chloride (Normal Saline) 1,000 mls @ 125 mls/hr IV ASDIRECTED [facility] Last Admin: 01/04/20 04:44 Dose: 125 mls/hr Meropenem/Sodium Chloride 500 (mg/ Premix) 50 mls @ 100 mls/hr IV Q8H [facility] Last Admin: 01/04/20 08:30 Dose: 100 mls/hr Potassium Chloride 10 meq/ (Premix) 100 mls @ 100 mls/hr IV Q1H [facility] Stop: 01/04/20 15:59 Last Admin: 01/04/20 19:31 Dose: 100 mls/hr Ondansetron HCl (Zofran) 4 mg IVPUSH ONETIME ONE Stop: 01/03/20 22:36 Last Admin: 01/03/20 22:40 Dose: 4 mg Potassium Chloride (Klor-Con M20) 40 meq PO ONETIME ONE Stop: 01/05/20 08:38 Last Admin: 01/05/20 08:45 Dose: 40 meq *Q Meaningful Use (DIS) - VTE *Q VTE Pharmacological Contraindications *Q: Risk of Bleeding
== END 2020-01-05 11:05 | disposition home or self-care (01) ==
LOC: JD.ED 20:49 → JD.MS 01-04 00:50
PROVIDERS: ADMIT Internal Medicine; ATTEND Internal Medicine
DX: K52.9 Noninfective gastroenteritis and colitis, unspecified (principal); R11.14 Bilious vomiting; R93.5 Abnormal findings on diagnostic imaging of other abdominal regions, including retroperitoneum; K92.2 Gastrointestinal hemorrhage, unspecified; R10.30 Lower abdominal pain, unspecified; D72.829 Elevated white blood cell count, unspecified; N28.9 Disorder of kidney and ureter, unspecified; D75.1 Secondary polycythemia; E86.0 Dehydration; J44.9 Chronic obstructive pulmonary disease, unspecified; E66.9 Obesity, unspecified; F41.9 Anxiety disorder, unspecified; F32.9 Major depressive disorder, single episode, unspecified; F17.210 Nicotine dependence, cigarettes, uncomplicated; Z88.5 Allergy status to narcotic agent; Z88.0 Allergy status to penicillin; Z79.899 Other long term (current) drug therapy; Z68.29 Body mass index [BMI] 29.0-29.9, adult
CPT/HCPCS: 36415; 71045; 74176; 80053; 81001; 83036; 83605; 83690; 84484; 85007; 85025; 85027; 85610; 85730; 87040; 93005; 96361; 96365; 96375; 99285; A9270; J2185; J2405; J3480; J7030; J7050; J7120; 93010; 96366; G0378

== ENCOUNTER 2020-03-12 07:47 | Day surgery (SDC) | payer OTHER, SELFPAY ==
[~2020-03-12 07:47] MED LIST: Albuterol 0.083% 2.5 MG/3 ML Neb Soln NEB PRN; Lactated Ringers 1,000 ML IV SCH; Lidocaine 1%/Sod Bicarbonate in NS 8.4% 1 ML Syringe IDERM PRN; Sodium Chloride 0.9% 10 ML Syringe FLUSH PRN
--- NOTE | 2020-03-12 08:23 | PCM.PREANE ---
Preanesthetic Assessment - Procedure Proposed Procedure: EGD Colonoscopy - Anesthesia/Transfusion/Family Hx Anesthesia History: Prior Anesthesia Without Reaction Family History of Anesthesia Reaction: No Transfusion History: No Prior Transfusion(s) Intubation History: Unknown - Review of Systems General: No Symptoms Pulmonary: Cough, Sputum (Smoker 3/4 ppd for 48 years, chronic cough, productive at times. Denies SOB at this time. Preop Nebulizer treatment ordered. ) Cardiovascular: No Symptoms, Other (Able to carry groceries to house. Denies history of [place]. Chest pain from heartburn in the past. ) Gastrointestinal: Abdominal Pain Neurological: Other (Chronic Back Pain, Scoliosis, Fibromyalgia. Using Marijuana for chronic pain, last used 2 days ago. ) Other: Reports: Depression, Anxiety - Physical Assessment NPO Status Date: 03/11/20 NPO Status Time: 22:00 Vital Signs: Last Vital Signs Temp 36.3 C 03/12/20 07:50 Pulse 93 03/12/20 07:50 Resp 16 03/12/20 07:50 BP 155/86 H 03/12/20 07:50 Pulse Ox 99 03/12/20 08:10 Height: 1.5 m Weight: 61.235 kg ASA Class: 3 Mental Status: Alert & Oriented x3 Airway Class: Mallampati = 1 Dentition: Reports: Missing Tooth/Teeth, Caries (Denies loose teeth. ) Thyro-Mental Finger Breadths: 2 Mouth Opening Finger Breadths: 3 ROM/Head Extension: Full Lungs: Decreased Breath Sounds, Wheezing (Right Upper lobe, resolved with cough and deep breathing. ) Cardiovascular: Regular Rate, Regular Rhythm - Lab Values: Laboratory Last Values COVID-19 PCR Not detected (NOT DETECT) 03/10/20 12:00 - Allergies Allergies/Adverse Reactions: Allergies Allergy/AdvReac Type Severity Reaction Status Date / Time codeine Allergy Mild Hives Verified 03/11/20 11:56 Penicillins Allergy Mild Hives Verified 03/11/20 11:56 bisacodyl AdvReac Vomiting Verified 03/11/20 11:56 [From Dulcolax (bisacodyl)] - Anesthesia Plan Pre-Op Medication Ordered: Other (Albuterol Nebulizer) - Acknowledgements Anesthesia Type Planned: MAC Pt an Appropriate Candidate for the Planned Anesthesia: Yes Alternatives and Risks of Anesthesia Discussed w Pt/Guardian: Yes Pt/Guardian Understands and Agrees with Anesthesia Plan: Yes PreAnesthesia Questionnaire HEENT History: Reports: Cataract, Impaired Vision Other HEENT History: wears glasses, missing teeth with one loose Cardiovascular History: Reports: Angina, High Cholesterol Other Cardiovascular History: states has NTG available for chest pain, no other cardiac Hx. 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: Other OB/BYN History: Pelvic surgery--hole in pelvic bone Musculoskeletal History: Reports: Arthritis, Back Pain, Chronic, Fibromyalgia, Other (See Below) Other Musculoskeletal History: scoliosis Neurological History: Reports: Other (See Below) Other Neuro History: fibromalgia Psychiatric History: Reports: Anxiety, Depression Endocrine/Metabolic History: Reports: Obesity/BMI 30+ Hematologic History: Reports: None Immunologic History: Reports: None Oncologic (Cancer) History: Reports: None Dermatologic History: Reports: None - Infectious Disease History Infectious Disease History: Reports: Hepatitis C Other Infectious Disease History: past history - Past Surgical History Head Surgeries/Procedures: Reports: None HEENT Surgical History: Reports: None Cardiovascular Surgical History: Reports: None Respiratory Surgical History: Reports: None GI Surgical History: Reports: Colonoscopy, EGD Female Surgical History: Reports: Tubal Ligation Endocrine Surgical History: Reports: None Neurological Surgical History: Reports: None, Scoliosis Musculoskeletal Surgical History: Reports: Arthroscopic Knee, Other (See Below) Other Musculoskeletal Surgeries/Procedures:: scoliosis Oncologic Surgical History: Reports: None - SUBSTANCE USE Smoking Status *Q: Current Every Day Smoker Recreational Drug Use History: Yes Recreational Drug Type: Reports: Marijuana/Hashish - HOME MEDS Home Medications: Home Meds Cyclobenzaprine [Flexeril] 10 mg PO TID PRN 12/01/19 [History] Albuterol [Ventolin HFA] 3 puff INH Q4H PRN 01/04/20 [History] Mirtazapine 15 mg PO BEDTIME 01/04/20 [History] clonazePAM [Clonazepam] 0.5 - 1 mg PO BID PRN 01/04/20 [History] Albuterol/Ipratropium [DuoNeb 3.0-0.5 MG/3 ML] 1 dose NEB QID PRN 03/11/20 [History] Budesonide/Formoterol Fumarate [Symbicort 160-4.5 Mcg Inhaler] 2 puff INH BID 03/11/20 [History] Dicyclomine [Bentyl] 20 mg PO QID 03/11/20 [History] Nitroglycerin [Nitrostat] 0.4 mg SL ASDIRECTED PRN 03/11/20 [History] Omeprazole Magnesium [Prilosec Otc] 20 mg PO DAILY 03/11/20 [History] Ondansetron [Ondansetron ODT] 4 mg PO Q4H PRN 03/11/20 [History] Potassium Chloride [Klor-Con M20] 20 meq PO DAILY 03/11/20 [History] Rosuvastatin Calcium [Crestor] 40 mg PO DAILY 03/11/20 [History] - CURRENT (IN HOUSE) MEDS Current Meds: Current Medications Albuterol (Proventil Neb Soln) 2.5 mg NEB ONETIME PRN PRN Reason: bronchodilation Stop: 03/12/20 18:00 Last Admin: 03/12/20 08:10 Dose: 2.5 mg Documented by: Lactated Ringer's (Ringers, Lactated) 1,000 mls @ 125 mls/hr IV ASDIRECTED [facility] Stop: 03/12/20 23:00 Lidocaine/Sodium Bicarbonate (Buffered Lidocaine 1% In Ns 8.4%) 0.25 ml IDERM ONETIME PRN PRN Reason: Prior to IV Start Stop: 03/12/20 18:00 Sodium Chloride (Saline Flush) 10 ml FLUSH ASDIRECTED PRN PRN Reason: Keep Vein Open Stop: 03/12/20 18:00
[2020-03-12] MEDS ORDERED: fentaNYL 100 MCG/2 ML SDV ONE (09:24)
[2020-03-12] MEDS ORDERED: Propofol 200 MG/20 ML SDV ONE ×3 (09:24→10:42)
[2020-03-12] MEDS ORDERED: Lidocaine 1% 4 ML ONE (09:57)
--- NOTE | 2020-03-12 10:51 | PCM.OPNOTE ---
- General Post-Op/Procedure Note Date of Surgery/Procedure: 03/12/20 Operative Procedure(s): EGD and colonoscopy Findings: 1. Gastritis 2. Duodenitis 3. Hiatal hernia 4. Irregular GE junction consistent with esophagitis 5. Transverse colon polyp 6. Colitis in the descending and sigmoid colon 7. Diverticulosis Pre Op Diagnosis: Abdominal pain, weight loss, nausea, vomiting, abnormal CT findings of the colon Post-Op Diagnosis: Same Anesthesia Technique: [facility] [place] Primary Surgeon: Sugey Silva Anesthesia Provider: Mata Ortega Pathology: 1. Duodenum biopsies 2. Gastric antrum biopsies 3. GE junction biopsies 4. Transverse colon polyp 5. Descending colon biopsies Fluid Replacement, Intraop: 1,000 Output, Urine Amount: 0 EBL in mLs: 0 Complications: none apparent Condition: Good
--- NOTE | 2020-03-12 10:53 | PCM.PRNOTE ---
- Free Text/Narrative Note: Operative Report Date of Procedure: March 12, 2020 Pre Op Diagnosis: Abdominal pain, abnormal CT findings of the colon, nausea, vomiting, weight loss Post-Op Diagnosis: Same Operative Procedures: 1. EGD with biopsy 2. Colonoscopy to the cecum Primary Surgeon: Sugey Silva MD Anesthesia Provider: Mata Ortega CRNA Anesthesia Technique: MAC IV Fluid Replacement, Intraop: 1000cc crystalloid Output, Urine Amount: 0cc EBL in mLs: 0cc Findings: 1. Gastritis 2. Duodenitis 3. Hiatal hernia 4. Irregular GE junction consistent with esophagitis 5. Transverse colon polyp 6. Colitis in the descending and sigmoid colon 7. Diverticulosis Specimens: 1. Duodenum biopsies 2. Gastric antrum biopsies 3. GE junction biopsies 4. Transverse colon polyp 5. Descending colon biopsies Drain/Tubes: None Indication: The patient is 64-year-old lady who presented to the clinic with abdominal pain and colitis on CT scans. The patient reported symptoms of nausea, vomiting, and weight loss. She was hospitalized for her symptoms requiring treatment and had difficulty with the prep . The patient was consented for a diagnostic EGD and colonoscopy. Risks of bleeding, and perforation were discussed, and the patient agreed to the risks and wished to proceed. Description of the procedure: The patient was taken back to the endoscopy suite, and placed in the left latera l decubitus position. Local anesthetic to the oropharynx was administered, and a bite block was placed. The patient was sedated with MAC anesthesia. The Olympus video endoscope was inserted into the oropharynx and guided under direct vision into the esophagus, stomach, and duodenum. The gastric antrum was inspected and cold biopsy forceps were used to take tissue samples for H. pylori. There was erythema in the stomach consistent with gastritis and small flecks of blood consistent with stigmata of recent bleeding. The duodenal bulb and second portion of the duodenum were remarkable for friability and erythema consistent with duodenitis. A cold biopsy forceps was used to take tissue samples in the duodenum for pathology. The scope was withdrawn to the stomach and retroflexed. There was no increased fluid, food or secretions in the upper gastrointestinal tract. No erosions or ulcers were noted. The scope was withdrawn to the esophagus. A this point we noted a small hiatal hernia. The Z-line was irregular consistent with esophagitis, no specific Barretts esophagus changes were noted. Biopsies were taken with the cold biopsy forceps in 4 quadrants in this area. The endoscope was then withdrawn Next, anorectal examination was performed. No lesions, masses or hemorrhoids were noted externally or on palpation. The scope was placed into the rectum and advanced to cecum. There was significant tortuosity of the colon. The patient requires position change to supine as well as external abdominal pressure to advance past the sigmoid colon. Upon reaching the cecum, and the patients cecum was entered. The ileocecal valve was well visualized and the appendiceal orifice identified. At this point, the scope was slowly withdrawn, paying attention to the mucosa. The patient had adequate bowel prep to identify polyps. A 2 mm transverse colon polyp was noted. This was removed using a cold biopsy forceps. There was evidence of ongoing inflammation in the descending and sigmoid colon evidenced by erythematous mucosa. There appeared to be small flecks of blood versus particulate stool matter in the descending colon. Biopsies were taken in the descending colon using a cold biopsy forceps. In the rectum, scope was not retroflexed due to the patient's difficult anatomy. The scope was placed back in the lumen and excess air was aspirated. The scope was removed. The patient tolerated the procedure very well. Complications: None apparent Condition: The patient was transported to PACU in stable condition. Sugey Silva MD General Surgery
[2020-03-12] MEDS: Metoprolol Tartrate 5 MG/5 ML SDV IVPUSH PRN ×2 (12:17→12:37)
--- NOTE | 2020-03-12 13:00 | PCM48HPAN ---
Post Anesthesia Note - EVALUATION WITHIN 48HRS OF ANESTHETIC Vital Signs in Normal Range: Yes Patient Participated in Evaluation: Yes Respiratory Function Stable: Yes Airway Patent: Yes Cardiovascular Function Stable: Yes (patient received metoprolol 5 mg for elevated BP) Hydration Status Stable: Yes Pain Control Satisfactory: Yes Nausea and Vomiting Control Satisfactory: Yes Mental Status Recovered: Yes Vital Signs: Last Vital Signs Temp 97.9 F 03/12/20 11:50 Pulse 66 03/12/20 12:50 Resp 20 03/12/20 12:50 BP 167/72 H 03/12/20 12:50 Pulse Ox 95 03/12/20 12:50 - COMMENTS/OBSERVATIONS Free Text/Narrative:: No anesthesia complications. BP improved after Metoprolol. Patient is ready to be discharged home.
[2020-03-12 13:50] VITALS: BP 180/102; PULSE 68
== END 2020-03-12 13:25 | disposition home or self-care (01) ==
LOC: JD.SDS 07:47
PROVIDERS: ATTEND Surgery
DX: D12.3 Benign neoplasm of transverse colon (principal); K29.50 Unspecified chronic gastritis without bleeding; K31.89 Other diseases of stomach and duodenum; K44.9 Diaphragmatic hernia without obstruction or gangrene; K52.9 Noninfective gastroenteritis and colitis, unspecified; K29.80 Duodenitis without bleeding; Q43.8 Other specified congenital malformations of intestine; K20.9 Esophagitis, unspecified; E78.00 Pure hypercholesterolemia, unspecified; J44.9 Chronic obstructive pulmonary disease, unspecified; F41.9 Anxiety disorder, unspecified; F32.9 Major depressive disorder, single episode, unspecified; E66.9 Obesity, unspecified; F17.200 Nicotine dependence, unspecified, uncomplicated; Z11.59 Encounter for screening for other viral diseases; Z79.899 Other long term (current) drug therapy; Z98.890 Other specified postprocedural states; Z88.5 Allergy status to narcotic agent; Z88.0 Allergy status to penicillin; Z88.8 Allergy status to other drugs, medicaments and biological substances; Z68.27 Body mass index [BMI] 27.0-27.9, adult
CPT/HCPCS: 36415; 43239; 45380; 80051; 87635; 94640; J2001; J2704; J3010; J3490; J7120; 00813; U0002

== ENCOUNTER 2020-03-12 21:36 | Emergency (ER) | payer OTHER ==
[2020-03-12] MEDS ORDERED: Ondansetron 4 MG/2 ML SDV IVPUSH ONE (22:31)
[2020-03-12] MEDS ORDERED: Sodium Chloride 0.9% 1,000 ML IV ONE (22:31)
[2020-03-13] MEDS ORDERED: Metoclopramide 10 MG/2 ML SDV IVPUSH STA (02:06)
--- NOTE | 2020-03-13 02:21 | EDM.PDOC ---
ED HPI GENERAL MEDICAL PROBLEM - General Chief Complaint: Gastrointestinal Problem Stated Complaint: BLEEDING FROM ENDO/COLONSCOPY Time Seen by Provider: 03/13/20 01:45 Source of Information: Reports: Patient History Limitations: Reports: No Limitations - History of Present Illness INITIAL COMMENTS - FREE TEXT/NARRATIVE: Mrs. Morley is a pleasant 64-year-old woman with a past medical history significant for GERD, diverticulosis, and colon polyps, who now presents the ED with vomiting after undergoing an EGD and colonoscopy yesterday, 03/12/2020. The patient states that she has been experiencing the sensation of food getting stuck in her esophagus, therefore talked to her PCP about it, who then arranged for the EGD and colonoscopy. Paperwork sent home with the patient indicates that a hiatal hernia, gastritis, duodenitis, and at least one colon polyp was found. It is unclear if a biopsy was obtained, however, the patient is supposed to follow-up in 2 weeks, which suggests that she might be following up for the biopsy results. The patient states that she started vomiting around 20:00 to 21:00 tonight, and that there appeared to be some black and red in the vomitus. After she began vomiting, she found her blood pressure to be elevated. She states that she took some Zofran around 22:00, and also reports that she was given Zofran here in the ED, ordered by the triage nurse. The patient states that she had a similar nausea and vomiting following an EGD and colonoscopy around 5 years ago. She also reports, however, that the prep for that colonoscopy included bisacodyl, which she has since listed as an allergy, believing that the nausea and vomiting was due to the bisacodyl. Because of that listing of an allergy, however, she was not given bisacodyl for yesterday's prep, yet she is vomiting nonetheless. Here in the ED, the patient's initial BP is found to be elevated at 193/102, otherwise, she is hemodynamically stable, afebrile, saturating 91% on room air. When I evaluated the patient, she vomited. I noticed that there did not appear to be any blood or coffee grounds in the emesis. Other than the nausea and vomiting, and the previous sensation of food getting stuck in her esophagus, the patient denies recent fever, chills, sore throat, ear pain, nasal or sinus congestion, cough, dyspnea, chest pain, palpitations, constipation, diarrhea, abdominal pain, urinary symptoms, recent weight gain or weight loss, recent bloody bowel movements or black bowel movements, recent joint aches, headaches, or rashes. The patient's PCP is CHERIE Rojas. Her Surgeon is Dr. Sugey Silva. abdominal Pain Score (Numeric/FACES): 6 - Related Data Allergies Allergy/AdvReac Type Severity Reaction Status Date / Time codeine Allergy Mild Hives Verified 03/12/20 22:00 Penicillins Allergy Mild Hives Verified 03/12/20 22:00 bisacodyl AdvReac Vomiting Verified 03/12/20 22:00 [From Dulcolax (bisacodyl)] Home Meds: Home Meds Cyclobenzaprine [Flexeril] 10 mg PO TID PRN 12/01/19 [History] Albuterol [Ventolin HFA] 3 puff INH Q4H PRN 01/04/20 [History] Mirtazapine 15 mg PO BEDTIME 01/04/20 [History] clonazePAM [Clonazepam] 0.5 - 1 mg PO BID PRN 01/04/20 [History] Albuterol/Ipratropium [DuoNeb 3.0-0.5 MG/3 ML] 1 dose NEB QID PRN 03/11/20 [History] Budesonide/Formoterol Fumarate [Symbicort 160-4.5 Mcg Inhaler] 2 puff INH BID 03/11/20 [History] Dicyclomine [Bentyl] 20 mg PO QID 03/11/20 [History] Nitroglycerin [Nitrostat] 0.4 mg SL ASDIRECTED PRN 03/11/20 [History] Omeprazole Magnesium [Prilosec Otc] 20 mg PO DAILY 03/11/20 [History] Ondansetron [Ondansetron ODT] 4 mg PO Q4H PRN 03/11/20 [History] Potassium Chloride [Klor-Con M20] 20 meq PO DAILY 03/11/20 [History] Rosuvastatin Calcium [Crestor] 40 mg PO DAILY 03/11/20 [History] Past Medical History HEENT History: Reports: Impaired Vision (wears glasses) Cardiovascular History: Reports: High Cholesterol Respiratory History: Reports: COPD (PFT-proven) Gastrointestinal History: Reports: Colon Polyp, Diverticulosis, GERD, Hiatal Hernia, Other (See Below) (Duodenitis) Genitourinary History: Reports: Renal Calculus, Urinary Incontinence (stress incontinence) Musculoskeletal History: Reports: Back Pain, Chronic (due to scoliosis) Psychiatric History: Reports: Anxiety (untreated), Depression (untreated), Other (See Below) (Fibromyalgia, insomnia) - Infectious Disease History Infectious Disease History: Reports: Hepatitis C (treated, cured) - Past Surgical History GI Surgical History: Reports: Colonoscopy (x 2), EGD (x 2) Female Surgical History: Reports: Tubal Ligation Musculoskeletal Surgical History: Reports: Arthroscopic Knee (right), Other (See Below) (Pelvis repair as a child) Social & Family History - Family History Family Medical History: Noncontributory - Tobacco Use Smoking Status *Q: Current Every Day Smoker Years of Tobacco use: 53 Packs/Tins Daily: 1 Packs/Tins Daily Comment: Down from 5 ppd - Caffeine Use Caffeine Use: Reports: Coffee Caffeine Use Comment: 2 cups a day - Alcohol Use Alcohol Use History: Yes Date/Time of Last Drink Comment: Alcoholic - sober since 2016 - Recreational Drug Use Recreational Drug Use: Yes Drug Use in Last 12 Months: Yes Recreational Drug Type: Reports: Marijuana/Hashish (smokes 4-5 x/month) - Living Situation & Occupation Living situation: Reports: , with Spouse Occupation: Unemployed ED ROS GENERAL - Review of Systems Review Of Systems: Comprehensive ROS is negative, except as noted in HPI. ED EXAM, GI/ABD - Physical Exam Exam: See Below Exam Limited By: No Limitations General Appearance: Alert, WD/WN, No Apparent Distress (vomited in my presence, but looked and felt much better afterwards) Eyes: Bilateral: Normal Appearance, EOMI Ears: Normal External Exam, Hearing Grossly Normal Nose: Normal Inspection Throat/Mouth: Normal Inspection, Normal Lips, Normal Voice, No Airway Compromise Head: Atraumatic, Normocephalic Neck: Normal Inspection, Full Range of Motion Respiratory/Chest: No Respiratory Distress, Lungs Clear, Normal Breath Sounds, No Accessory Muscle Use Cardiovascular: Normal Peripheral Pulses, Regular Rate, Rhythm, No Edema, No Gallop, No JVD, No Murmur, No Rub GI/Abdominal Exam: Normal Bowel Sounds, Soft, Non-Tender, No Organomegaly, No Distention, No Abnormal Bruit, No Mass (Female) Exam: Deferred Rectal (Female) Exam: Deferred Back Exam: Normal Inspection, Full Range of Motion, NT Extremities: Normal Inspection, Normal Range of Motion, No Pedal Edema, Normal Capillary Refill Neurological: Alert, Oriented, Normal Cognition, No Motor/Sensory Deficits Psychiatric: Normal Affect Skin Exam: Warm, Dry, Intact, Normal Color, No Rash Course - Vital Signs Last Recorded V/S: Last Vital Signs Temp 36.5 C 03/12/20 21:55 Pulse 100 03/13/20 04:16 Resp 20 03/12/20 21:55 BP 178/78 H 03/13/20 04:16 Pulse Ox 91 L 03/12/20 21:55 Orthostatic Blood Pressure [ 184/95 Standing] Orthostatic Blood Pressure [ 178/78 Supine] - Orders/Labs/Meds Orders: Active Orders 24 hr Category Date Time Status Orthostatic Vital Signs [RC] STAT Care 03/13/20 02:06 Active Orthostatic Vital Signs [RC] STAT Care 03/13/20 03:10 Active PATIENT RETYPE [BBK] Routine Lab 03/13/20 00:15 Ordered Labs: Laboratory Tests 03/12/20 03/12/20 03/12/20 Range/Units 22:20 22:20 22:20 WBC 15.79 H (3.98-10.04) K/mm3 RBC 5.43 H (3.98-5.22) M/mm3 Hgb 15.7 D (11.2-15.7) gm/dl Hct 45.1 H (34.1-44.9) % MCV 83.1 D (79.4-94.8) fl MCH 28.9 (25.6-32.2) pg MCHC 34.8 (32.2-35.5) g/dl RDW Std Deviation 47.2 H (36.4-46.3) fL Plt Count 202 (182-369) K/mm3 MPV 10.8 (9.4-12.3) fl Neut % (Auto) 89.9 H (34.0-71.1) % Lymph % (Auto) 5.3 L (19.3-51.7) % [place] % (Auto) 4.1 L (4.7-12.5) % Eos % (Auto) 0.1 L (0.7-5.8) Baso % (Auto) 0.3 (0.1-1.2) % Neut # (Auto) 14.22 H (1.56-6.13) K/mm3 Lymph # (Auto) 0.84 L (1.18-3.74) K/mm3 [place] # (Auto) 0.64 H (0.24-0.36) K/mm3 Eos # (Auto) 0.01 L (0.04-0.36) K/mm3 Baso # (Auto) 0.04 (0.01-0.08) K/mm3 Manual Slide Review Abnormal smear Sodium 135 L (136-145) mEq/L Potassium 3.8 (3.5-5.1) mEq/L Chloride 95 L (98-107) mEq/L Carbon Dioxide 21 (21-32) mEq/L Anion Gap 22.8 H (5-15) BUN 8 (7-18) mg/dL Creatinine 0.6 (0.55-1.02) mg/dL Est Cr Clr Drug Dosing 69.83 mL/min Estimated GFR (MDRD) > 60 (>60) mL/min BUN/Creatinine Ratio 13.3 L (14-18) Glucose 201 H (80-115) mg/dL Calcium 9.9 (8.5-10.1) mg/dL Magnesium (1.8-2.4) mg/dl Total Bilirubin 1.0 (0.2-1.0) mg/dL AST 16 (15-37) U/L ALT 24 (14-59) U/L Alkaline Phosphatase 115 (46-116) U/L Total Protein 8.7 H (6.4-8.2) g/dl Albumin 4.8 (3.4-5.0) g/dl Globulin 3.9 gm/dL Albumin/Globulin Ratio 1.2 (1-2) Urine Color (Yellow) Urine Appearance (Clear) Urine pH (5.0-8.0) Ur Specific [place] (1.005-1.030) Urine Protein (Negative) Urine Glucose (UA) (Negative) Urine Ketones (Negative) Urine Occult Blood (Negative) Urine Nitrite (Negative) Urine Bilirubin (Negative) Urine Urobilinogen (0.2-1.0) Ur Leukocyte Esterase (Negative) Urine RBC (0-5) /hpf Urine WBC (0-5) /hpf Ur Squamous Epith Cells (0-5) /hpf Urine Bacteria (FEW) /hpf Urine Mucus (FEW) /hpf Blood Type O POSITIVE Gel Antibody Screen Negative 03/12/20 03/12/20 Range/Units 22:20 23:57 WBC (3.98-10.04) K/mm3 RBC (3.98-5.22) M/mm3 Hgb (11.2-15.7) gm/dl Hct (34.1-44.9) % MCV (79.4-94.8) fl MCH (25.6-32.2) pg MCHC (32.2-35.5) g/dl RDW Std Deviation (36.4-46.3) fL Plt Count (182-369) K/mm3 MPV (9.4-12.3) fl Neut % (Auto) (34.0-71.1) % Lymph % (Auto) (19.3-51.7) % [place] % (Auto) (4.7-12.5) % Eos % (Auto) (0.7-5.8) Baso % (Auto) (0.1-1.2) % Neut # (Auto) (1.56-6.13) K/mm3 Lymph # (Auto) (1.18-3.74) K/mm3 [place] # (Auto) (0.24-0.36) K/mm3 Eos # (Auto) (0.04-0.36) K/mm3 Baso # (Auto) (0.01-0.08) K/mm3 Manual Slide Review Sodium (136-145) mEq/L Potassium (3.5-5.1) mEq/L Chloride (98-107) mEq/L Carbon Dioxide (21-32) mEq/L Anion Gap (5-15) BUN (7-18) mg/dL Creatinine (0.55-1.02) mg/dL Est Cr Clr Drug Dosing mL/min Estimated GFR (MDRD) (>60) mL/min BUN/Creatinine Ratio (14-18) Glucose (80-115) mg/dL Calcium (8.5-10.1) mg/dL Magnesium 1.9 (1.8-2.4) mg/dl Total Bilirubin (0.2-1.0) mg/dL AST (15-37) U/L ALT (14-59) U/L Alkaline Phosphatase (46-116) U/L Total Protein (6.4-8.2) g/dl Albumin (3.4-5.0) g/dl Globulin gm/dL Albumin/Globulin Ratio (1-2) Urine Color Yellow (Yellow) Urine Appearance Clear (Clear) Urine pH 6.0 (5.0-8.0) Ur Specific [place] > or = 1.030 (1.005-1.030) Urine Protein 2+ H (Negative) Urine Glucose (UA) Trace H (Negative) Urine Ketones 3+ H (Negative) Urine Occult Blood 1+ H (Negative) Urine Nitrite Negative (Negative) Urine Bilirubin Negative (Negative) Urine Urobilinogen 0.2 (0.2-1.0) Ur Leukocyte Esterase Negative (Negative) Urine RBC 0-5 (0-5) /hpf Urine WBC 0-5 (0-5) /hpf Ur Squamous Epith Cells 5-10 H (0-5) /hpf Urine Bacteria Few (FEW) /hpf Urine Mucus Few (FEW) /hpf Blood Type Gel Antibody Screen Meds: Medications Discontinued Medications Generic Name Dose Route Start Last Admin Trade Name Dimitrios PRN Reason Stop Dose Admin Sodium Chloride 1,000 mls @ 999 mls/hr 03/12/20 22:31 03/12/20 22:39 Normal Saline IV 03/12/20 23:31 999 mls/hr ONETIME ONE Administration Lactated Ringer's 1,000 mls @ 999 mls/hr 03/13/20 03:10 03/13/20 03:20 Ringers, Lactated IV 03/13/20 04:10 999 mls/hr .BOLUS ONE Administration Metoclopramide HCl 10 mg 03/13/20 02:06 03/13/20 02:21 Reglan IVPUSH 03/13/20 02:07 10 mg ONETIME STA Administration Ondansetron HCl 4 mg 03/12/20 22:31 03/12/20 22:39 Zofran IVPUSH 03/12/20 22:32 4 mg ONETIME ONE Administration - Re-Assessments/Exams Free Text/Narrative Re-Assessment/Exam: 03/13/20 02:08 As above, the patient underwent both an EGD and colonoscopy yesterday, 03/12/2020. Based on the information packet that the patient was sent home with, it sounds like she was diagnosed with a hiatal hernia gastritis, duodenitis, and colon polyps. The paperwork does not directly say that the colon polyp or polyps were biopsied, however, the patient does have a follow-up appointment in 2 weeks, so it would stand to reason that that is to follow-up on the results of those biopsies. The patient's current nausea and vomiting, however, is unlikely due to the conditions found, rather, is more likely due to a reaction to the anesthesia, especially since she had the same reaction the last time she underwent an EGD and colonoscopy, about 5 years ago. She also reports that she has had similar vomiting whenever she takes Dulcolax, but she acknowledges that she did not take any Dulcolax recently, specifically because it causes her to vomit. A CBC, CMP, urinalysis, and type and screen were ordered at triage. I have added a magnesium level and orthostatics. The patient CBC is remarkable for a WBC count elevated at 15.79, and a Hct weighted at 45.1 with a Hgb normal at 15.7. The remainder of her CBC is unremarkable. Her CMP is remarkable for a sodium at the lower level of normal at 135, and an anion gap elevated at 22.8 with a bicarbonate normal at 21. Her blood glucose is elevated at 201. The remainder of her CMP is unremarkable. Her urinalysis is remarkable for 1+ occult blood with 0-5 RBCs, leukocyte esterase negative with 0-5 WBCs, nitrite negative with few bacteria, and 5-10 squamous epithelial cells. 03/13/20 03:11 The patient is orthostatic. Her magnesium level is within normal limits at 1.9. The patient already received 1 L of NS, ordered by the triage nurse. I have now ordered a second liter of IV fluid, LR, after which we will recheck orthostatics. 03/13/20 04:36 Following a second liter of IV fluid, the patient is no longer orthostatic. 03/13/20 04:38 The patient states that she is feeling much better. I will discharge her home. She states that she already has a prescription for Zofran at home. Departure - Departure Time of Disposition: 04:38 Disposition: Home, Self-Care 01 Condition: Good Clinical Impression: Nausea & vomiting, Orthostasis - Discharge Information *PRESCRIPTION DRUG MONITORING PROGRAM REVIEWED*: Not Applicable *COPY OF PRESCRIPTION DRUG MONITORING REPORT IN PATIENT EMILY: Not Applicable Referrals: Sugey Silva MD [Primary Care Provider] - Talia Thomson PA-C [Ordering Only Provider] - Forms: ED Department Discharge Additional Instructions: You were seen in the emergency room for nausea, vomiting, and elevated blood pressure after undergoing an EGD and colonoscopy. Work-up in the ER included blood work, a urinalysis, and positional blood pressure checks. Your blood work was unremarkable, however, your blood pressure dropped excessively between lying and standing, a condition called orthostasis, indicati ng that you were intravascularly dry. You were given 2 L of IV fluid, and your orthostasis resolved. We recommend that you stay adequately hydrated. Gatorade or Powerade are best. If you are hungry, we recommend that you eat a bland diet, such as toast, oatmeal, or rice. Chicken noodle soup with saltine crackers is an excellent choice. Follow-up with Dr. Soriano in 2 weeks, as previously recommended. If any other problems, please do not hesitate to return to the ER. Sepsis Event Note (ED) - Evaluation Sepsis Screening Result: No Definite Risk - Focused Exam Vital Signs: Vital Signs Temp Pulse Resp BP Pulse Ox 03/13/20 04:16 100 178/78 H 03/12/20 21:55 36.5 C 89 20 193/102 H 91 L - My Orders Last 24 Hours: My Active Orders 03/13/20 00:15 PATIENT RETYPE [BBK] Routine 03/13/20 02:06 Orthostatic Vital Signs [RC] STAT 03/13/20 03:10 Orthostatic Vital Signs [RC] STAT - Assessment/Plan Last 24 Hours: My Active Orders 03/13/20 00:15 PATIENT RETYPE [BBK] Routine 03/13/20 02:06 Orthostatic Vital Signs [RC] STAT 03/13/20 03:10 Orthostatic Vital Signs [RC] STAT
[2020-03-13] MEDS ORDERED: Lactated Ringers 1,000 ML IV ONE (03:10)
[2020-03-13 04:16] VITALS: BP 178/78; PULSE 100
== END 2020-03-13 05:32 | disposition home or self-care (01) ==
LOC: JD.ED 21:36
DX: R11.2 Nausea with vomiting, unspecified (principal); E78.00 Pure hypercholesterolemia, unspecified; J44.9 Chronic obstructive pulmonary disease, unspecified; K21.9 Gastro-esophageal reflux disease without esophagitis; F41.9 Anxiety disorder, unspecified; F32.9 Major depressive disorder, single episode, unspecified; F17.210 Nicotine dependence, cigarettes, uncomplicated; Z88.5 Allergy status to narcotic agent; Z88.0 Allergy status to penicillin; Z88.8 Allergy status to other drugs, medicaments and biological substances; Z79.899 Other long term (current) drug therapy
CPT/HCPCS: 36415; 80053; 81001; 83735; 85025; 86850; 86900; 86901; 96361; 96374; 96375; 99284; J2405; J2765; J7030; J7120

== ENCOUNTER 2020-05-21 19:52 | Emergency (ER) | payer OTHER ==
[2020-05-21] MEDS ORDERED: Diphtheria,Pertussis(Acell),Tetanus Vaccine 0.5 ML Syringe IM ONE (20:07)
[2020-05-21] MEDS ORDERED: Lidocaine 1% 10 ML MDV INJECT ONE (20:07)
--- NOTE | 2020-05-21 20:14 | EDM.PDOC ---
ED HPI GENERAL MEDICAL PROBLEM - General Chief Complaint: Laceration Stated Complaint: THUMB INJURY Time Seen by Provider: 05/21/20 19:57 Source of Information: Reports: Patient, RN Notes Reviewed History Limitations: Reports: No Limitations - History of Present Illness INITIAL COMMENTS - FREE TEXT/NARRATIVE: Patient is a 64-year-old female who presents to the ED for evaluation of a right thumb laceration. Patient notes that she was in her car, when she was reaching for something, and she ended up lacerating the ulnar aspect of the right thumb on something sharp. She is not sure of her last tetanus update, but thinks it was more than 10 years ago. She states that everything in her car is new, she does not think anything could have been chely. She states she cannot get the thumb to stop bleeding at home, so she comes to the ER for management. Patient is not on blood thinners, but is on high blood pressure medications. She is not complaining of any fever/chills, cough/shortness of breath, nausea/vomiting/diarrhea. The wound itself is linear, fairly superficial and is roughly 1 cm in length. Right Finger-Thumb Pain Score (Numeric/FACES): 8 - Related Data Allergies Allergy/AdvReac Type Severity Reaction Status Date / Time codeine Allergy Mild Hives Verified 05/21/20 20:01 Penicillins Allergy Mild Hives Verified 05/21/20 20:01 bisacodyl AdvReac Vomiting Verified 05/21/20 20:01 [From Dulcolax (bisacodyl)] Home Meds: Home Meds Cyclobenzaprine [Flexeril] 10 mg PO TID PRN 12/01/19 [History] Albuterol [Ventolin HFA] 3 puff INH Q4H PRN 01/04/20 [History] Mirtazapine 15 mg PO BEDTIME 01/04/20 [History] clonazePAM [Clonazepam] 0.5 - 1 mg PO BID PRN 01/04/20 [History] Albuterol/Ipratropium [DuoNeb 3.0-0.5 MG/3 ML] 1 dose NEB QID PRN 03/11/20 [History] Dicyclomine [Bentyl] 20 mg PO QID 03/11/20 [History] Nitroglycerin [Nitrostat] 0.4 mg SL ASDIRECTED PRN 03/11/20 [History] Omeprazole Magnesium [Prilosec Otc] 20 mg PO DAILY 03/11/20 [History] Ondansetron [Ondansetron ODT] 4 mg PO Q4H PRN 03/11/20 [History] Potassium Chloride [Klor-Con M20] 20 meq PO DAILY 03/11/20 [History] Rosuvastatin Calcium [Crestor] 40 mg PO DAILY 03/11/20 [History] Past Medical History HEENT History: Reports: Impaired Vision (wears glasses) Other HEENT History: wears glasses, missing teeth with one loose Cardiovascular History: Reports: High Cholesterol Other Cardiovascular History: states has NTG available for chest pain, no other cardiac Hx. Respiratory History: Reports: COPD (PFT-proven) Gastrointestinal History: Reports: Colon Polyp, Diverticulosis, GERD, Hiatal Hernia, Other (See Below) (Duodenitis) Other Gastrointestinal History: hepatitis C, gastritis, duodenitis, polyp Genitourinary History: Reports: Renal Calculus, Urinary Incontinence (stress incontinence) PROCUREMENT BUYER History: Reports: Other PROCUREMENT BUYER History: Pelvic surgery--hole in pelvic bone Musculoskeletal History: Reports: Back Pain, Chronic (due to scoliosis) Other Musculoskeletal History: scoliosis Neurological History: Reports: Other (See Below) Other Neuro History: fibromalgia Psychiatric History: Reports: Anxiety (untreated), Depression (untreated), Other (See Below) (Fibromyalgia, insomnia) Endocrine/Metabolic History: Reports: Obesity/BMI 30+ Hematologic History: Reports: None Immunologic History: Reports: None Oncologic (Cancer) History: Reports: None Dermatologic History: Reports: None - Infectious Disease History Infectious Disease History: Reports: Hepatitis C (treated, cured) Other Infectious Disease History: past history - Past Surgical History GI Surgical History: Reports: Colonoscopy (x 2), EGD (x 2) Female Surgical History: Reports: Tubal Ligation Musculoskeletal Surgical History: Reports: Arthroscopic Knee (right), Other (See Below) (Pelvis repair as a child) Social & Family History - Family History Family Medical History: Noncontributory - Caffeine Use Caffeine Use: Reports: Coffee Caffeine Use Comment: 2 cups a day - Living Situation & Occupation Living situation: Reports: , with Spouse Occupation: Unemployed ED ROS GENERAL - Review of Systems Review Of Systems: Comprehensive ROS is negative, except as noted in HPI. ED EXAM, SKIN/RASH Exam: See Below Exam Limited By: No Limitations General Appearance: Alert, WD/WN, No Apparent Distress Respiratory/Chest: No Respiratory Distress, Lungs Clear, Normal Breath Sounds, No Accessory Muscle Use, Chest Non-Tender Cardiovascular: Normal Peripheral Pulses, Regular Rate, Rhythm, No Murmur Peripheral Pulses: 2+: Radial (L), Radial (R) Extremities: Normal Range of Motion, Normal Capillary Refill Neurological: Alert, Oriented, Normal Cognition, No Motor/Sensory Deficits Psychiatric: Normal Affect, Normal Mood Skin: Warm, Dry, Normal Color, No Rash, Wound/Incision (Roughly 1 cm linear superficial laceration to the ulnar aspect of the DIP joint of the patient's right thumb. No active bleeding is appreciated at this time.) ED SKIN PROCEDURES - Laceration/Wound Repair Right Medial Distal Digit - 1st (Thumb) Appearance: Superficial, Clean Distal NVT: Neuro & Vascular Intact Anesthetic Type: Local Local Anesthesia - Lidocaine (Xylocaine): 1% Plain Local Anesthetic Volume: 2cc Skin Prep: Chlorhexidine (Hibiciens), Saline Exploration/Debridement/Repair: Wound Explored, In a Bloodless Field, Explored to Base, No Foreign Material Found Closed with: Sutures Lac/Wound length In cm: 1 Suture Size: 4-0 # of Sutures: 3 Sterile Dressing Applied: Nurse Tetanus Status Addressed: Yes (updated at today's visit) Complications: No Course - Vital Signs Last Recorded V/S: Last Vital Signs Temp 97.3 F 05/21/20 19:59 Pulse 111 H 05/21/20 19:59 Resp 19 05/21/20 19:59 BP 189/78 H 05/21/20 19:59 Pulse Ox 93 L 05/21/20 19:59 - Orders/Labs/Meds Orders: Active Orders 24 hr Category Date Time Status Vaccines to be Administered [RC] PER UNIT ROUTINE Care 05/21/20 20:08 Ordered Meds: Medications Discontinued Medications Generic Name Dose Route Start Last Admin Trade Name Freq PRN Reason Stop Dose Admin Diphtheria/Tetanus/Acell Pertussis 0.5 ml 05/21/20 20:07 Adacel IM 05/21/20 20:08 .ONCE ONE Lidocaine HCl 10 ml 05/21/20 20:07 Xylocaine 1% INJECT 05/21/20 20:08 ONETIME ONE Departure - Departure Time of Disposition: 20:15 Disposition: Home, Self-Care 01 Condition: Good Clinical Impression: Laceration of thumb Qualifiers: Encounter type: initial encounter Damage to nail status: without damage Foreign body presence: without foreign body Laterality: right Qualified Code(s): S61.011A - Laceration without foreign body of right thumb without damage to nail, initial encounter - Discharge Information *PRESCRIPTION DRUG MONITORING PROGRAM REVIEWED*: No *COPY OF PRESCRIPTION DRUG MONITORING REPORT IN PATIENT EMILY: No Instructions: Sutured Wound Care, [id number] Referrals: Talia Thomson PA-C [Primary Care Provider] - Forms: ED Department Discharge Additional Instructions: You have been evaluated in the ED for your laceration. Sutures will need to stay in for 10-14 days. You may return to the ED or any clinic for removal. Please keep this area clean and dry, you may cleanse with regular soap and water. No vigorous scrubbing. Please try to avoid submerging the affected area in water for prolonged periods of time until the sutures are removed. Watch out for signs of infection like increased redness, swelling, pain at the laceration site, or if you should develop any fevers or chills. Please return to ED if your symptoms change or worsen. Sepsis Event Note (ED) - Evaluation Sepsis Screening Result: No Definite Risk - Focused Exam Vital Signs: Vital Signs Temp Pulse Resp BP Pulse Ox 05/21/20 19:59 97.3 F 111 H 19 189/78 H 93 L - My Orders Last 24 Hours: My Active Orders 05/21/20 20:08 Vaccines to be Administered [RC] PER UNIT ROUTINE - Assessment/Plan Last 24 Hours: My Active Orders 05/21/20 20:08 Vaccines to be Administered [RC] PER UNIT ROUTINE
[2020-05-21 21:27] VITALS: BP 186/94; PULSE 87
== END 2020-05-21 21:10 | disposition home or self-care (01) ==
LOC: JD.ED 19:52
DX: S61.011A Laceration without foreign body of right thumb without damage to nail, initial encounter (principal); E66.9 Obesity, unspecified; Z68.27 Body mass index [BMI] 27.0-27.9, adult; E78.00 Pure hypercholesterolemia, unspecified; J44.9 Chronic obstructive pulmonary disease, unspecified; K21.9 Gastro-esophageal reflux disease without esophagitis; M41.9 Scoliosis, unspecified; Z23 Encounter for immunization; Z88.5 Allergy status to narcotic agent; Z88.0 Allergy status to penicillin; Z88.8 Allergy status to other drugs, medicaments and biological substances; W26.9XXA Contact with unspecified sharp object(s), initial encounter
CPT/HCPCS: 12001; 90471; 90715; 99282; J2001

== ENCOUNTER 2020-09-07 11:34 | Emergency (ER) | payer OTHER, SELFPAY ==
[2020-09-07 11:54] VITALS: PULSE 105
[2020-09-07] MEDS ORDERED: Lidocaine/EPINEPHrine/Tetracaine Soln 1 ML TOP ONE (11:56)
[2020-09-07] MEDS ORDERED: Clindamycin HCl 150 MG Cap PO ONE (12:07)
--- NOTE | 2020-09-07 12:09 | EDM.PDOC ---
ED HPI GENERAL MEDICAL PROBLEM - General Chief Complaint: ENT Problem Stated Complaint: DENTAL COMPLAINT Time Seen by Provider: 09/07/20 11:44 Source of Information: Reports: Patient, RN Notes Reviewed History Limitations: Reports: No Limitations - History of Present Illness INITIAL COMMENTS - FREE TEXT/NARRATIVE: Patient is a 64-year-old female who presents to the ED for her dental complaint. Patient states that since yesterday, she has had some upper right dental pain, and she notes when she runs her tongue along the gumline, she can feel a lump. She is also appreciating some swelling into her cheek. She does not have any fevers or chills, cough or shortness of breath, no nausea no vomiting no diarrhea. Patient states that she has pretty poor teeth to begin with and she has not been able to see her dentist as the pain just started yesterday. She states she will call them on Tuesday to schedule an appointment for definitive management. 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: Acetaminophen, Aspirin, NSAIDS Right Upper Jaw Pain Score (Numeric/FACES): 9 - Related Data Allergies Allergy/AdvReac Type Severity Reaction Status Date / Time codeine Allergy Mild Hives Verified 05/21/20 20:01 Penicillins Allergy Mild Hives Verified 05/21/20 20:01 bisacodyl AdvReac Vomiting Verified 05/21/20 20:01 [From Dulcolax (bisacodyl)] Home Meds: Home Meds Cyclobenzaprine [Flexeril] 10 mg PO TID PRN 12/01/19 [History] Albuterol [Ventolin HFA] 3 puff INH Q4H PRN 01/04/20 [History] Mirtazapine 15 mg PO BEDTIME 01/04/20 [History] clonazePAM [Clonazepam] 0.5 - 1 mg PO BID PRN 01/04/20 [History] Albuterol/Ipratropium [DuoNeb 3.0-0.5 MG/3 ML] 1 dose NEB QID PRN 03/11/20 [History] Dicyclomine [Bentyl] 20 mg PO QID 03/11/20 [History] Nitroglycerin [Nitrostat] 0.4 mg SL ASDIRECTED PRN 03/11/20 [History] Omeprazole Magnesium [Prilosec Otc] 20 mg PO DAILY 03/11/20 [History] Ondansetron [Ondansetron ODT] 4 mg PO Q4H PRN 03/11/20 [History] Rosuvastatin Calcium [Crestor] 40 mg PO DAILY 03/11/20 [History] Clindamycin HCl 300 mg PO TID 7 Days #21 capsule 09/07/20 [Rx] Hydrocodone/Acetaminophen [Hydrocodone-Acetamin 5-325 mg] 1 each PO Q6H PRN #12 tablet 09/07/20 [Rx] Past Medical History HEENT History: Reports: Impaired Vision Other HEENT History: wears glasses, missing teeth with one loose Cardiovascular History: Reports: High Cholesterol Other Cardiovascular History: states has NTG available for chest pain, no other cardiac Hx. 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 History: Pelvic surgery--hole in pelvic bone Musculoskeletal History: Reports: Back Pain, Chronic Other Musculoskeletal History: scoliosis Neurological History: Reports: Other (See Below) Other Neuro History: fibromyalgia Psychiatric History: Reports: Anxiety, Depression, Other (See Below) Endocrine/Metabolic History: Reports: Obesity/BMI 30+ - Infectious Disease History Infectious Disease History: Reports: Hepatitis C Other Infectious Disease History: past history - Past Surgical History HEENT Surgical History: Reports: Oral Surgery GI Surgical History: Reports: Colonoscopy, EGD Female Surgical History: Reports: Tubal Ligation Neurological Surgical History: Reports: Scoliosis Musculoskeletal Surgical History: Reports: Arthroscopic Knee, Other (See Below) Other Musculoskeletal Surgeries/Procedures:: scoliosis Social & Family History - Family History Family Medical History: No Pertinent Family History - Tobacco Use Tobacco Use Status *Q: Current Every Day Tobacco User Years of Tobacco use: 54 Packs/Tins Daily: 1 - Caffeine Use Caffeine Use: Reports: Coffee, Tea Caffeine Use Comment: 2 cups a day - Recreational Drug Use Recreational Drug Use: Yes Drug Use in Last 12 Months: Yes Recreational Drug Type: Reports: Marijuana/Hashish Recreational Drug Use Frequency: Monthly - Living Situation & Occupation Living situation: Reports: , with Spouse Occupation: Unemployed ED ROS ENT - Review of Systems Review Of Systems: Comprehensive ROS is negative, except as noted in HPI. ED EXAM, ENT - Physical Exam Exam: See Below Exam Limited By: No Limitations General Appearance: Alert, WD/WN, No Apparent Distress Mouth/Throat: Normal Inspection, Normal Gums, Normal Lips, Normal Oropharynx, Dental Abcess (to right upper jaw/outer gumline) Head: Facial Swelling (to right cheek) Respiratory/Chest: No Respiratory Distress, Lungs Clear, Normal Breath Sounds, No Accessory Muscle Use, Chest Non-Tender Cardiovascular: Normal Peripheral Pulses, Regular Rate, Rhythm, No Edema Neurological: Alert, Oriented, Normal Cognition, No Motor/Sensory Deficits Psychiatric: Normal Affect, Normal Mood Skin: Warm, Dry, Intact, Normal Color, No Rash Course - Vital Signs Last Recorded V/S: Last Vital Signs Temp 97.3 F 09/07/20 11:50 Pulse 105 H 09/07/20 11:50 Resp 20 09/07/20 11:50 BP 181/91 H 09/07/20 11:50 Pulse Ox 96 09/07/20 11:50 - Orders/Labs/Meds Meds: Medications Discontinued Medications Generic Name Dose Route Start Last Admin Trade Name Freq PRN Reason Stop Dose Admin Clindamycin HCl 600 mg 09/07/20 12:07 Cleocin PO 09/07/20 12:08 ONETIME ONE Lidocaine/Tetracaine 1 ml 09/07/20 11:56 Let Soln TOP 09/07/20 11:57 ONETIME ONE - Re-Assessments/Exams Free Text/Narrative Re-Assessment/Exam: 09/07/20 12:03 Patient complains of a dental abscess to her right upper jaw. The area was numbed with tetracaine topically, via a Lollicaine, and then the area was lanced with an 18-gauge needle, this allowed for some purulent drainage, patient replaced on antibiotics and given some pain meds and discharged home. Departure - Departure Time of Disposition: 12:09 Disposition: Home, Self-Care 01 Condition: Good Clinical Impression: Dental abscess - Discharge Information *PRESCRIPTION DRUG MONITORING PROGRAM REVIEWED*: Yes *COPY OF PRESCRIPTION DRUG MONITORING REPORT IN PATIENT EMILY: No Prescriptions: Clindamycin HCl 300 mg PO TID 7 Days #21 capsule Hydrocodone/Acetaminophen [Hydrocodone-Acetamin 5-325 mg] 1 each PO Q6H PRN #12 tablet PRN Reason: Pain Instructions: Dental Abscess, [id number] Referrals: Talia Thomson PA-C [Primary Care Provider] - Forms: ED Department Discharge Additional Instructions: You have been evaluated in the ED for your dental pain. You have been provided with a script for Clindamycin. Please take this medication as directed. (1 tab TID for 7 days or until gone). Please note this antibiotic can take up to 48 hours to provide coverage. If you do not notice an improvement in the swelling within 3 days time I recommend you seek care for reevaluation for change in antibiotics. This antibiotic can cause diarrhea, recommend that you start a probiotic while taking this medication. You were given a prescription for a strong pain medication, hydrocodone/acetaminophen 5/325mg, please take 1 tab every 6 hours as needed for pain not relieved by Tylenol or ibuprofen alone. Please note this medication does contain Tylenol in it, so do not take more than 4000 mg in a 24-hour time span. These medications can be addictive, so please take as few as possible to achieve adequate pain control. These meds can also be quite constipating, recommend that you increase your oral fluid intake and take a stool softener like MiraLAX while taking these medications. Do not drive while taking this medication. Recommend you take 600 mg ibuprofen every 6 hours for the next few days. Do not exceed 3200 mg ibuprofen in a 24-hour time span. You may use hot pack/ ice packs to the affected area as tolerated in 15-20 minute intervals. You will ultimately need to find a dentist to provide definitive management of your dental pain. The [facility] in [place], [place], , is a clinic that has been known to take people that do not have dental insurance, and may provide payment plans. You might want to check with this provider, regarding your dental pain. Please return to the ED if your symptoms change or worsen. Sepsis Event Note (ED) - Evaluation Sepsis Screening Result: No Definite Risk - Focused Exam Vital Signs: Vital Signs Temp Pulse Resp BP Pulse Ox 09/07/20 11:50 97.3 F 105 H 20 181/91 H 96
[2020-09-07 12:40] VITALS: BP 130/80
== END 2020-09-07 12:40 | disposition home or self-care (01) ==
LOC: JD.ED 11:34
DX: K04.7 Periapical abscess without sinus (principal); E78.00 Pure hypercholesterolemia, unspecified; J44.9 Chronic obstructive pulmonary disease, unspecified; K21.9 Gastro-esophageal reflux disease without esophagitis; M41.9 Scoliosis, unspecified; F17.210 Nicotine dependence, cigarettes, uncomplicated; E66.9 Obesity, unspecified; Z68.29 Body mass index [BMI] 29.0-29.9, adult; Z88.5 Allergy status to narcotic agent; Z88.0 Allergy status to penicillin; Z91.048 Other nonmedicinal substance allergy status; Z79.899 Other long term (current) drug therapy
CPT/HCPCS: 41800; 99282; A9270; 99283

== ENCOUNTER 2020-12-02 09:35 | Day surgery (SDC) | payer OTHER ==
--- NOTE | 2020-12-02 09:57 | EDM.PDOC ---
ED HPI GENERAL MEDICAL PROBLEM - General Chief Complaint: Gastrointestinal Problem Stated [facility] Time Seen by Provider: 12/02/20 09:45 Source of Information: Reports: Patient History Limitations: Reports: No Limitations - History of Present Illness INITIAL COMMENTS - FREE TEXT/NARRATIVE: 65-year-old female presents to the ED per [facility]. Patient was eating rib meat for breakfast this morning. She believes these are beef ribs. She had cooked them in the car crockpot yesterday and felt that all the bones had been removed. Of her small fragment of bone must of been in the ribs meet she ate this morning as she felt sharp stabbing pain at the posterior oropharynx almost immediately after eating first bite this morning. This pain persisted with no relief and therefore she went to the [facility]. They advised to drink some water which she did and it went by but it made the pain much worse and now the pain is felt more in the sternal notch area posterior oropharynx. She has no respiratory compromise. Still has significant discomfort sharp stabbing pain with swallowing. Onset: Today, Sudden Onset Date: 12/02/20 Onset Time: 08:30 Duration: Minutes:, Constant Location: Reports: Neck (Sharp stabbing pain with swallowing at the sternal notch area of her throat.) Quality: Reports: Sharp, Stabbing Severity: Moderate Improves with: Reports: Rest, Other (No pain if not swallowing.) Worsens with: Reports: Other Context: Reports: Other (Appears to have accidentally swallowed a portion of a bone from a beef rib.). 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) Epigastric Pain Score (Numeric/FACES): 7 - Related Data Allergies Allergy/AdvReac Type Severity Reaction Status Date / Time codeine Allergy Mild Hives Verified 12/02/20 09:56 Penicillins Allergy Mild Hives Verified 12/02/20 09:56 bisacodyl AdvReac Vomiting Verified 12/02/20 09:56 [From Dulcolax (bisacodyl)] Home Meds: Home Meds Cyclobenzaprine [Flexeril] 10 mg PO TID PRN 12/01/19 [History] Albuterol [Ventolin HFA] 3 puff INH Q4H PRN 01/04/20 [History] Mirtazapine 15 mg PO BEDTIME 01/04/20 [History] clonazePAM [Clonazepam] 0.5 - 1 mg PO BID PRN 01/04/20 [History] Albuterol/Ipratropium [DuoNeb 3.0-0.5 MG/3 ML] 1 dose NEB QID PRN 03/11/20 [History] Dicyclomine [Bentyl] 20 mg PO QID 03/11/20 [History] Nitroglycerin [Nitrostat] 0.4 mg SL ASDIRECTED PRN 03/11/20 [History] Omeprazole Magnesium [Prilosec Otc] 20 mg PO DAILY 03/11/20 [History] Ondansetron [Ondansetron ODT] 4 mg PO Q4H PRN 03/11/20 [History] Rosuvastatin Calcium [Crestor] 40 mg PO DAILY 03/11/20 [History] Budesonide/Formoterol Fumarate [Symbicort 160-4.5 Mcg Inhaler] 2 puff INH BID 12/02/20 [History] lisinopriL [Lisinopril] 20 mg PO DAILY 12/02/20 [History] Past Medical History HEENT History: Reports: Impaired Vision Other HEENT History: wears glasses, missing teeth with one loose Cardiovascular History: Reports: High Cholesterol Other Cardiovascular History: states has NTG available for chest pain, no other cardiac Hx. 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 MOUNTER History: Pelvic surgery--hole in pelvic bone Musculoskeletal History: Reports: Back Pain, Chronic Other Musculoskeletal History: scoliosis Neurological History: Reports: Other (See Below) Other Neuro History: fibromyalgia Psychiatric History: Reports: Anxiety, Depression, Other (See Below) Endocrine/Metabolic History: Reports: Obesity/BMI 30+ Hematologic History: Reports: None Immunologic History: Reports: None Oncologic (Cancer) History: Reports: None Dermatologic History: Reports: None - Infectious Disease History Infectious Disease History: Reports: Hepatitis C Other Infectious Disease History: past history - Past Surgical History Head Surgeries/Procedures: Reports: None HEENT Surgical History: Reports: Oral Surgery Cardiovascular Surgical History: Reports: None Respiratory Surgical History: Reports: None GI Surgical History: Reports: Colonoscopy, EGD Female Surgical History: Reports: Tubal Ligation Endocrine Surgical History: Reports: None Neurological Surgical History: Reports: Scoliosis Musculoskeletal Surgical History: Reports: Arthroscopic Knee, Other (See Below) Other Musculoskeletal Surgeries/Procedures:: scoliosis Oncologic Surgical History: Reports: None Social & Family History - Family History Family Medical History: No Pertinent Family History - Caffeine Use Caffeine Use: Reports: Coffee, Tea Caffeine Use Comment: 2 cups a day - Living Situation & Occupation Living situation: Reports: , with Spouse Occupation: Unemployed ED ROS GENERAL - Review of Systems Review Of Systems: See Below Constitutional: Denies: Fever, Chills, Malaise, Weakness, Fatigue, Decreased Appetite, Weight Loss HEENT: Reports: Glasses Respiratory: Denies: No Symptoms, Shortness of Breath, Wheezing, Pleuritic Chest Pain, Cough Cardiovascular: Denies: Chest Pain, Blood Pressure Problem, Claudication, Dyspnea on Exertion Endocrine: Reports: No Symptoms GI/Abdominal: Denies: Abdominal Pain, Anorexia, Black Stool, Bloody Stool, Constipation, Diarrhea : Reports: Frequency. Denies: Incontinence Musculoskeletal: Reports: Back Pain (Chronic low back pain) Skin: Reports: No Symptoms Neurological: Reports: No Symptoms Psychiatric: Reports: No Symptoms Hematologic/Lymphatic: Reports: No Symptoms Immunologic: Reports: No Symptoms ED EXAM, GI/ABD - Physical Exam Exam: See Below Exam Limited By: No Limitations General Appearance: Alert, WD/WN, No Apparent Distress, Other (Temperature is 36.2 degrees heart rate 82 and sinus respiratory to 16 with O2 sats of 96% room air BP is 131/88.) Eyes: Bilateral: Normal Appearance (No scleral icterus or blepharal pallor.) Throat/Mouth: Normal Inspection, Normal Lips, Normal Oropharynx, Other (No foreign bodies visible in the hypopharynx on) Head: Atraumatic, Normocephalic ( examination of the hypopharynx with a tongue blade.) Neck: Normal Inspection, Supple, Non-Tender, Full Range of Motion. No: Lymphadenopathy (L), Lymphadenopathy (R) Respiratory/Chest: No Respiratory Distress, No Accessory Muscle Use, Decreased Breath Sounds, Wheezing (Mildly decreased breath sounds to the lower 20% lung maciel bilaterally.) Cardiovascular: Normal Peripheral Pulses, Regular Rate, Rhythm, No Edema, No Gallop, No Murmur, No Rub GI/Abdominal Exam: Normal Bowel Sounds, Soft, Non-Tender, No Organomegaly, No Abnormal Bruit, No Mass, Pelvis Stable Back Exam: Other (Iliopsoas thoracic) Extremities: Normal Inspection ( and lumbar spine), Normal Range of Motion, Non- Tender, No Pedal Edema Neurological: Alert, Oriented, CN II-XII Intact, Normal Cognition Psychiatric: Anxious Skin Exam: Warm, Dry, Intact, Normal Color (Anxious.), No Rash #1 Interpretation EKG Date: 12/02/20 Time: 11:10 Rhythm: NSR Rate (Beats/Min): 75 [place]: Normal P-Wave: Present (Borderline short UT interval) QRS: Other (Q-wave V1 near Q wave in V2 consider old anteroseptal myocardial infarction. Patient has no history of GA.) ST-T: Other (T wave inversion V1 V2 and flattening in aVL nonspecific findings) QT: Normal EKG Interpretation Comments: Abnormal ECG Course - Vital Signs Last Recorded V/S: Last Vital Signs Temp 36.2 C 12/02/20 12:05 Pulse 97 12/02/20 13:01 Resp 16 12/02/20 13:01 BP 133/61 12/02/20 13:01 Pulse Ox 98 12/02/20 13:01 - Orders/Labs/Meds Orders: Active Orders 24 hr Category Date Time Status Admission Status [Patient Status] [ADT] Routine ADT 12/02/20 12:15 Active EKG Documentation Completion [RC] STAT Care 12/02/20 10:47 Active RT Aerosol Therapy [RC] ASDIRECTED Care 12/02/20 12:48 Active Albuterol [Proventil Neb Soln] Med 12/02/20 13:30 Once 2.5 mg NEB ONETIME ONE Lactated Ringers [Ringers, Lactated] 1,000 ml Med 12/02/20 10:00 Active IV ASDIRECTED Sodium Chloride 0.9% [Saline Flush] Med 12/02/20 10:00 Active 10 ml FLUSH ONETIME PRN Schedule Procedure [COMM] Stat Oth 12/02/20 12:18 Ordered Medication Orders Albuterol (Albuterol 0.083% 2.5 Mg/3 Ml Neb Soln) 2.5 mg NEB ONETIME ONE Stop: 12/02/20 13:31 Last Admin: 12/02/20 13:02 Dose: 2.5 mg Documented by: JASON Lactated Ringer's (Ringers, Lactated) 1,000 mls @ 125 mls/hr IV ASDIRECTED JONES Last Admin: 12/02/20 10:13 Dose: 125 mls/hr Documented by: MARK Sodium Chloride (Sodium Chloride 0.9% 10 Ml Syringe) 10 ml FLUSH ONETIME PRN PRN Reason: Keep Vein Open Last Admin: 12/02/20 10:32 Dose: 10 ml Documented by: Admin: 12/02/20 10:10 Dose: 10 ml Documented by: MARK Labs: Laboratory Tests 12/02/20 12/02/20 12/02/20 Range/Units 10:05 10:05 10:55 WBC 9.00 (3.98-10.04) K/mm3 RBC 4.71 (3.98-5.22) M/mm3 Hgb 13.7 D (11.2-15.7) gm/dl Hct 40.0 (34.1-44.9) % MCV 84.9 (79.4-94.8) fl MCH 29.1 (25.6-32.2) pg MCHC 34.3 (32.2-35.5) g/dl RDW Std Deviation 49.2 H (36.4-46.3) fL Plt Count 177 L (182-369) K/mm3 MPV 10.7 (9.4-12.3) fl Neut % (Auto) 63.4 (34.0-71.1) % Lymph % (Auto) 23.6 (19.3-51.7) % [place] % (Auto) 9.8 (4.7-12.5) % Eos % (Auto) 0.8 (0.7-5.8) Baso % (Auto) 2.2 H (0.1-1.2) % Neut # (Auto) 5.71 (1.56-6.13) K/mm3 Lymph # (Auto) 2.12 (1.18-3.74) K/mm3 [place] # (Auto) 0.88 H (0.24-0.36) K/mm3 Eos # (Auto) 0.07 (0.04-0.36) K/mm3 Baso # (Auto) 0.20 H (0.01-0.08) K/mm3 Manual Slide Review Normal smear Sodium 139 (136-145) mEq/L Potassium 4.2 (3.5-5.1) mEq/L Chloride 104 (98-107) mEq/L Carbon Dioxide 23 (21-32) mEq/L Anion Gap 16.2 H (5-15) BUN 14 (7-18) mg/dL Creatinine 1.2 H (0.55-1.02) mg/dL Est Cr Clr Drug Dosing 34.47 mL/min Estimated GFR (MDRD) 45 (>60) mL/min BUN/Creatinine Ratio 11.7 L (14-18) Glucose 128 H (80-115) mg/dL Calcium 9.7 (8.5-10.1) mg/dL Total Bilirubin 0.4 (0.2-1.0) mg/dL AST 13 L (15-37) U/L ALT 21 (14-59) U/L Alkaline Phosphatase 79 (46-116) U/L Total Protein 7.9 (6.4-8.2) g/dl Albumin 4.4 (3.4-5.0) g/dl Globulin 3.5 gm/dL Albumin/Globulin Ratio 1.3 (1-2) SARS-CoV-2 RNA (MARYBETH) Negative (NEGATIVE) Meds: Medications Generic Name Dose Route Start Last Admin Trade Name Freq PRN Reason Stop Dose Admin Albuterol 2.5 mg 12/02/20 13:30 12/02/20 13:02 Albuterol 0.083% 2.5 Mg/3 Ml Neb Soln NEB 12/02/20 13:31 2.5 mg ONETIME ONE Administration Lactated Ringer's 1,000 mls @ 125 mls/hr 12/02/20 10:00 12/02/20 10:13 Ringers, Lactated IV 125 mls/hr ASDIRECTED JONES Administration Sodium Chloride 10 ml 12/02/20 10:00 12/02/20 10:32 Sodium Chloride 0.9% 10 Ml Syringe FLUSH 10 ml ONETIME PRN Administration Keep Vein Open Discontinued Medications Generic Name Dose Route Start Last Admin Trade Name Dimitrios PRN Reason Stop Dose Admin Dexamethasone Confirm 12/02/20 12:57 Dexamethasone 4 Mg/Ml Sdv Administered 12/02/20 12:58 Dose 8 mg .ROUTE .STK-MED ONE Fentanyl Confirm 12/02/20 12:58 Fentanyl 250 Mcg/5 Ml Sdv Administered 12/02/20 12:59 Dose 250 mcg .ROUTE .STK-MED ONE Lidocaine HCl Confirm 12/02/20 12:57 Xylocaine-Mpf 1% Administered 12/02/20 12:58 Dose 4 mls @ as directed .ROUTE .STK-MED ONE Iopamidol 80 ml 12/02/20 10:00 12/02/20 10:31 Iopamidol 612 Mg/Ml 100 Ml Bottle IVPUSH 12/02/20 10:01 80 ml ONETIME ONE Administration Midazolam HCl Confirm 12/02/20 12:58 Midazolam 1 Mg/Ml 2 Ml Sdv Administered 12/02/20 12:59 Dose 2 mg .ROUTE .STK-MED ONE Ondansetron HCl Confirm 12/02/20 12:57 Ondansetron 4 Mg/2 Ml Sdv Administered 12/02/20 12:58 Dose 4 mg .ROUTE .STK-MED ONE Propofol Confirm 12/02/20 12:58 Propofol 200 Mg/20 Ml Sdv Administered 12/02/20 12:59 Dose 400 mg .ROUTE .STK-MED ONE - Radiology Interpretation Free Text/Narrative:: 65-year-old female presents to the ED per [facility] with concerns for a foreign body in her hypopharynx. She reports that she was eating some beef ribs this morning for breakfast that she had cooked yesterday in the [email or web address]. She thought all the bones had been removed. However upon eating this food this morning she developed a sharp stabbing pain in the hypopharynx initially at the back of her throat just below her tongue but it is subsequently moved down to the suprasternal notch area after drinking some water at the [facility] which she went to earlier this morning. She has no respiratory compromise. She still has sharp stabbing pain upon trying to swallow. No regurgitation. Plan she will have CT of her neck with contrast. Routine labs to be collected. - Re-Assessments/Exams Free Text/Narrative Re-Assessment/Exam: 12/02/20 11:25 CT soft tissues of the neck has been completed with IV contrast. Parotid salivary gland and submandibular salivary glands appear to be within normal limits. No adenopathy is appreciated within the neck. Calcified atherosclerotic changes noted within the carotid bulb on both sides. No radiopaque foreign object is seen within the hypopharynx or within the trachea or proximal bronchi. No soft tissue swelling is seen within the parapharyngeal space. Thyroid gland appears normal. Prevertebral soft tissues are normal. Epiglottis appears normal. Bone window settings were reviewed which show scattered degenerative change within the spine. Visualized paranasal sinuses and mastoid sinuses show nothing acute. Lung window settings were reviewed which show scattered emphysematous change within both lungs. 12/02/20 11:32 On firm questioning patient still feels foreign body sensation with poke when she tries to swallow. COVID-19 screen rapid will be ordered. I will consult with Dr. Laurent on-call surgeon with a view to taking her to surgery for an upper GI endoscopy 12/02/20 11:[address] Laurent on the phone and he will come over and see the patient when able. 12/02/20 13:03 patient has been seen by Dr. Laurent and plan is to take her to surgery shortly for upper endoscopy to look for foreign body in the hypopharynx. Departure - Departure Time of Disposition: 13:06 Disposition: DC/Tfer to [facility] Condition: Fair Clinical Impression: Foreign body in throat Qualifiers: Encounter type: initial encounter Qualified Code(s): T17.208A - Unspecified foreign body in pharynx causing other injury, initial encounter - Discharge Information *PRESCRIPTION DRUG MONITORING PROGRAM REVIEWED*: Not Applicable *COPY OF PRESCRIPTION DRUG MONITORING REPORT IN PATIENT EMILY: Not Applicable Sepsis Event Note (ED) - Evaluation Sepsis Screening Result: No Definite Risk - Focused Exam Vital Signs: Vital Signs Temp Pulse Resp BP Pulse Ox Pulse Ox 12/02/20 13:01 97 16 133/61 98 12/02/20 12:48 97 12/02/20 12:05 36.2 C 82 18 138/80 96 12/02/20 09:40 36.2 C 82 16 131/88 96 - My Orders Last 24 Hours: My Active Orders 12/02/20 10:00 Lactated Ringers [Ringers, Lactated] 1,000 ml IV ASDIRECTED Sodium Chloride 0.9% [Saline Flush] 10 ml FLUSH ONETIME PRN 12/02/20 10:47 EKG Documentation Completion [RC] STAT 12/02/20 12:15 Admission Status [Patient Status] [ADT] Routine 12/02/20 12:18 Schedule Procedure [COMM] Stat - Assessment/Plan Last 24 Hours: My Active Orders 12/02/20 10:00 Lactated Ringers [Ringers, Lactated] 1,000 ml IV ASDIRECTED Sodium Chloride 0.9% [Saline Flush] 10 ml FLUSH ONETIME PRN 12/02/20 10:47 EKG Documentation Completion [RC] STAT 12/02/20 12:15 Admission Status [Patient Status] [ADT] Routine 12/02/20 12:18 Schedule Procedure [COMM] Stat
[2020-12-02] MEDS ORDERED: Lactated Ringers 1,000 ML IV SCH (10:00)
[2020-12-02] MEDS ORDERED: Iopamidol 612 MG/ML 100 ML Bottle IVPUSH ONE (10:00)
[2020-12-02] MEDS: Sodium Chloride 0.9% 10 ML Syringe FLUSH PRN ×2 (10:10→10:32)
--- NOTE | 2020-12-02 10:54 | CT ---
CT neck Technique: Multiple axial sections were obtained from above the external auditory canals inferiorly through the alice. Intravenous contrast was utilized. Reconstructed coronal and sagittal images were obtained. Comparison: No prior CT neck exam is available. Findings: Parotid salivary gland and submandibular salivary glands appear within normal limits. No adenopathy is appreciated within the neck. Calcified atherosclerotic change is noted within the carotid bulb on both sides. No radiopaque foreign object is seen within the hypopharynx or within the trachea or proximal bronchi. No soft tissue swelling is seen within the parapharyngeal space. Thyroid gland appears normal. Prevertebral soft tissues are normal. Epiglottis is normal. Bone window settings were reviewed which show scattered degenerative change within the spine. Visualized paranasal sinuses and mastoid sinuses show nothing acute. Lung window settings were reviewed which show scattered emphysematous change within both lungs. Impression: 1. Findings as noted above. 2. No findings of radiopaque foreign object within the hypopharynx or trachea. Diagnostic code #2
--- NOTE | 2020-12-02 12:54 | PCM.PREANE ---
Preanesthetic Assessment - Procedure Proposed Procedure: Foreign Body EGD removal - Anesthesia/Transfusion/Family Hx Anesthesia History: Prior Anesthesia Without Reaction Family History of Anesthesia Reaction: No Transfusion History: No Prior Transfusion(s) Intubation History: Unknown - Review of Systems General: Fatigue Pulmonary: Other (COPD, chronic cough, daily inhalers, feels well today. ) Cardiovascular: No Symptoms Gastrointestinal: Difficulty Swallowing Neurological: Pre-Existing Deficit (Fibromyalgia, chronic pain, involuntary jerking motions. ) Other: Reports: None (Hepatitis C), Depression (PTSD), Anxiety - Physical Assessment NPO Status Date: 12/02/20 NPO Status Time: :30 Vital Signs: Last Vital Signs Temp 36.2 C 12/02/20 12:05 Pulse 82 12/02/20 12:05 Resp 18 12/02/20 12:05 BP 138/80 12/02/20 12:05 Pulse Ox 96 12/02/20 12:05 Height: 1.5 m Weight: 58.513 kg ASA Class: 3E Mental Status: Alert & Oriented x3 Airway Class: Mallampati = 2 Dentition: Reports: Broken Tooth/Teeth, Missing Tooth/Teeth, Caries (Poor dentition, multiple missing, rotten teeth since childhood per patient. ) Thyro-Mental Finger Breadths: 2 Mouth Opening Finger Breadths: 3 ROM/Head Extension: Full Lungs: Clear to Auscultation, Normal Respiratory Effort, Decreased Breath Sounds, Wheezing (right upper) Cardiovascular: Regular Rate, Regular Rhythm - Lab Values: Laboratory Last Values WBC 9.00 K/mm3 (3.98-10.04) 12/02/20 10:05 RBC 4.71 M/mm3 (3.98-5.22) 12/02/20 10:05 Hgb 13.7 gm/dl (11.2-15.7) D 12/02/20 10:05 Hct 40.0 % (34.1-44.9) 12/02/20 10:05 MCV 84.9 fl (79.4-94.8) 12/02/20 10:05 MCH 29.1 pg (25.6-32.2) 12/02/20 10:05 MCHC 34.3 g/dl (32.2-35.5) 12/02/20 10:05 RDW Std Deviation 49.2 fL (36.4-46.3) H 12/02/20 10:05 Plt Count 177 K/mm3 (182-369) L 12/02/20 10:05 MPV 10.7 fl (9.4-12.3) 12/02/20 10:05 Neut % (Auto) 63.4 % (34.0-71.1) 12/02/20 10:05 Lymph % (Auto) 23.6 % (19.3-51.7) 12/02/20 10:05 [place] % (Auto) 9.8 % (4.7-12.5) 12/02/20 10:05 Eos % (Auto) 0.8 (0.7-5.8) 12/02/20 10:05 Baso % (Auto) 2.2 % (0.1-1.2) H 12/02/20 10:05 Neut # (Auto) 5.71 K/mm3 (1.56-6.13) 12/02/20 10:05 Lymph # (Auto) 2.12 K/mm3 (1.18-3.74) 12/02/20 10:05 [place] # (Auto) 0.88 K/mm3 (0.24-0.36) H 12/02/20 10:05 Eos # (Auto) 0.07 K/mm3 (0.04-0.36) 12/02/20 10:05 Baso # (Auto) 0.20 K/mm3 (0.01-0.08) H 12/02/20 10:05 Manual Slide Review Normal smear 12/02/20 10:05 Sodium 139 mEq/L (136-145) 12/02/20 10:05 Potassium 4.2 mEq/L (3.5-5.1) 12/02/20 10:05 Chloride 104 mEq/L (98-107) 12/02/20 10:05 Carbon Dioxide 23 mEq/L (21-32) 12/02/20 10:05 Anion Gap 16.2 (5-15) H 12/02/20 10:05 BUN 14 mg/dL (7-18) 12/02/20 10:05 Creatinine 1.2 mg/dL (0.55-1.02) H 12/02/20 10:05 Est Cr Clr Drug Dosing 34.47 mL/min 12/02/20 10:05 Estimated GFR (MDRD) 45 mL/min (>60) 12/02/20 10:05 BUN/Creatinine Ratio 11.7 (14-18) L 12/02/20 10:05 Glucose 128 mg/dL (80-115) H 12/02/20 10:05 Calcium 9.7 mg/dL (8.5-10.1) 12/02/20 10:05 Total Bilirubin 0.4 mg/dL (0.2-1.0) 12/02/20 10:05 AST 13 U/L (15-37) L 12/02/20 10:05 ALT 21 U/L (14-59) 12/02/20 10:05 Alkaline Phosphatase 79 U/L (46-116) 12/02/20 10:05 Total Protein 7.9 g/dl (6.4-8.2) 12/02/20 10:05 Albumin 4.4 g/dl (3.4-5.0) 12/02/20 10:05 Globulin 3.5 gm/dL 12/02/20 10:05 Albumin/Globulin Ratio 1.3 (1-2) 12/02/20 10:05 SARS-CoV-2 RNA (MARYBETH) Negative (NEGATIVE) 12/02/20 10:55 - Allergies Allergies/Adverse Reactions: Allergies Allergy/AdvReac Type Severity Reaction Status Date / Time codeine Allergy Mild Hives Verified 12/02/20 09:56 Penicillins Allergy Mild Hives Verified 12/02/20 09:56 bisacodyl AdvReac Vomiting Verified 12/02/20 09:56 [From Dulcolax (bisacodyl)] - Anesthesia Plan Pre-Op Medication Ordered: Anxiolytic, Other (Albuterol neb treatment.) - Acknowledgements Anesthesia Type Planned: General Anesthesia Pt an Appropriate Candidate for the Planned Anesthesia: Yes Alternatives and Risks of Anesthesia Discussed w Pt/Guardian: Yes Pt/Guardian Understands and Agrees with Anesthesia Plan: Yes PreAnesthesia Questionnaire HEENT History: Reports: Impaired Vision Other HEENT History: wears glasses, missing teeth with one loose Cardiovascular History: Reports: High Cholesterol Other Cardiovascular History: states has NTG available for chest pain, no other cardiac Hx. 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 Endocrine/Metabolic History: Reports: Obesity/BMI 30+ Hematologic History: Reports: None Immunologic History: Reports: None Oncologic (Cancer) History: Reports: None Dermatologic History: Reports: None - Infectious Disease History Infectious Disease History: Reports: Hepatitis C Other Infectious Disease History: past history - Past Surgical History Head Surgeries/Procedures: Reports: None HEENT Surgical History: Reports: Oral Surgery Cardiovascular Surgical History: Reports: None Respiratory Surgical History: Reports: None GI Surgical History: Reports: Colonoscopy, EGD Female Surgical History: Reports: Tubal Ligation Endocrine Surgical History: Reports: None Neurological Surgical History: Reports: Scoliosis Musculoskeletal Surgical History: Reports: Arthroscopic Knee, Other (See Below) Other Musculoskeletal Surgeries/Procedures:: scoliosis Oncologic Surgical History: Reports: None - SUBSTANCE USE Tobacco Use Status *Q: Heavy Tobacco User (1/2 to 1 pack per day) Tobacco Use Within Last Twelve Months: Cigarettes Second Hand Smoke Exposure: Yes Recreational Drug Use History: Yes Recreational Drug Type: Reports: Marijuana/Hashish (daily use, last time this morning for chronic pain management.) - HOME MEDS Home Medications: Home Meds Cyclobenzaprine [Flexeril] 10 mg PO TID PRN 12/01/19 [History] Albuterol [Ventolin HFA] 3 puff INH Q4H PRN 01/04/20 [History] Mirtazapine 15 mg PO BEDTIME 01/04/20 [History] clonazePAM [Clonazepam] 0.5 - 1 mg PO BID PRN 01/04/20 [History] Albuterol/Ipratropium [DuoNeb 3.0-0.5 MG/3 ML] 1 dose NEB QID PRN 03/11/20 [History] Dicyclomine [Bentyl] 20 mg PO QID 03/11/20 [History] Nitroglycerin [Nitrostat] 0.4 mg SL ASDIRECTED PRN 03/11/20 [History] Omeprazole Magnesium [Prilosec Otc] 20 mg PO DAILY 03/11/20 [History] Ondansetron [Ondansetron ODT] 4 mg PO Q4H PRN 03/11/20 [History] Rosuvastatin Calcium [Crestor] 40 mg PO DAILY 03/11/20 [History] Budesonide/Formoterol Fumarate [Symbicort 160-4.5 Mcg Inhaler] 2 puff INH BID 12/02/20 [History] lisinopriL [Lisinopril] 20 mg PO DAILY 12/02/20 [History] - CURRENT (IN HOUSE) MEDS Current Meds: Current Medications Lactated Ringer's (Ringers, Lactated) 1,000 mls @ 125 mls/hr IV ASDIRECTED [facility] Last Admin: 12/02/20 10:13 Dose: 125 mls/hr Documented by: Sodium Chloride (Sodium Chloride 0.9% 10 Ml Syringe) 10 ml FLUSH ONETIME PRN PRN Reason: Keep Vein Open Last Admin: 12/02/20 10:32 Dose: 10 ml Documented by: Discontinued Medications Iopamidol (Iopamidol 612 Mg/Ml 100 Ml Bottle) 80 ml IVPUSH ONETIME ONE Stop: 12/02/20 10:01 Last Admin: 12/02/20 10:31 Dose: 80 ml Documented by:
[2020-12-02] MEDS ORDERED: Lidocaine 1% 4 ML ONE (12:57)
[2020-12-02] MEDS ORDERED: Dexamethasone 4 MG/ML SDV ONE (12:57)
[2020-12-02] MEDS ORDERED: Ondansetron 4 MG/2 ML SDV ONE (12:57)
[2020-12-02] MEDS ORDERED: Midazolam 1 MG/ML 2 ML SDV ONE (12:58)
[2020-12-02] MEDS ORDERED: fentaNYL 250 MCG/5 ML SDV ONE (12:58)
[2020-12-02] MEDS ORDERED: Succinylcholine/Sod PF 100 MG/5 ML SYRINGE IV ONE (12:58)
[2020-12-02] MEDS ORDERED: Propofol 200 MG/20 ML SDV ONE (12:58)
--- NOTE | 2020-12-02 13:14 | PCM.HP.2 ---
H&P History of Present Illness - General Date of Service: 12/02/20 Admit Problem/Dx: Admission Diagnosis/Problem Admission Diagnosis/Problem Foreign body in esophagus Source of Information: Patient History Limitations: Reports: No Limitations - History of Present Illness Initial Comments - Free Text/Narative: The patient was eating pork ribs this morning. She usually makes sure all the bones are our before starting to eat but did not do that today. After the last bite she felt something in her throat. She realized that there was a piece of bone in the meat that she has swallowed and this had gotten stuck in her throat. She had a lot of saliva come out then. This happened at 9am this morning. She went to a doctor's office where she was asked to drink some water. she was able to drink the water but felt that the sensation moved down further into her neck but persisted. She came to the ED, Ct neck was performed and was normal. However, due to persistent feeling and symptoms, I was asked to evaluate the patient. I saw the patient, confimed the findings. Onset of Symptoms: Reports: Sudden Duration of Symptoms: Reports: Hour(s): (4), Constant Location: Reports: Neck Severity: Mild Improves with: Reports: None Worsens with: Reports: Other (swallowing) Epigastric Pain Score (Numeric/FACES): 7 - Related Data Allergies/Adverse Reactions: Allergies Allergy/AdvReac Type Severity Reaction Status Date / Time codeine Allergy Mild Hives Verified 12/02/20 09:56 Penicillins Allergy Mild Hives Verified 12/02/20 09:56 bisacodyl AdvReac Vomiting Verified 12/02/20 09:56 [From Dulcolax (bisacodyl)] Home Medications: Home Meds Cyclobenzaprine [Flexeril] 10 mg PO TID PRN 12/01/19 [History] Albuterol [Ventolin HFA] 3 puff INH Q4H PRN 01/04/20 [History] Mirtazapine 15 mg PO BEDTIME 01/04/20 [History] clonazePAM [Clonazepam] 0.5 - 1 mg PO BID PRN 01/04/20 [History] Albuterol/Ipratropium [DuoNeb 3.0-0.5 MG/3 ML] 1 dose NEB QID PRN 03/11/20 [History] Dicyclomine [Bentyl] 20 mg PO QID 03/11/20 [History] Nitroglycerin [Nitrostat] 0.4 mg SL ASDIRECTED PRN 03/11/20 [History] Omeprazole Magnesium [Prilosec Otc] 20 mg PO DAILY 03/11/20 [History] Ondansetron [Ondansetron ODT] 4 mg PO Q4H PRN 03/11/20 [History] Rosuvastatin Calcium [Crestor] 40 mg PO DAILY 03/11/20 [History] Budesonide/Formoterol Fumarate [Symbicort 160-4.5 Mcg Inhaler] 2 puff INH BID 12/02/20 [History] lisinopriL [Lisinopril] 20 mg PO DAILY 12/02/20 [History] Past Medical History HEENT History: Reports: Impaired Vision Other HEENT History: wears glasses, missing teeth with one loose Cardiovascular History: Reports: High Cholesterol Other Cardiovascular History: states has NTG available for chest pain, no other cardiac Hx. 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 Endocrine/Metabolic History: Reports: Obesity/BMI 30+ Hematologic History: Reports: None Immunologic History: Reports: None Oncologic (Cancer) History: Reports: None Dermatologic History: Reports: None - Infectious Disease History Infectious Disease History: Reports: Hepatitis C Other Infectious Disease History: past history - Past Surgical History Head Surgeries/Procedures: Reports: None HEENT Surgical History: Reports: Oral Surgery Cardiovascular Surgical History: Reports: None Respiratory Surgical History: Reports: None GI Surgical History: Reports: Colonoscopy, EGD Female Surgical History: Reports: Tubal Ligation Endocrine Surgical History: Reports: None Neurological Surgical History: Reports: Scoliosis Musculoskeletal Surgical History: Reports: Arthroscopic Knee, Other (See Below) Other Musculoskeletal Surgeries/Procedures:: scoliosis Oncologic Surgical History: Reports: None Social & Family History - Family History Family Medical History: No Pertinent Family History - Tobacco Use Tobacco Use Status *Q: Heavy Tobacco User (1/2 to 1 pack per day) Years of Tobacco use: 42 Packs/Tins Daily: 1 Second Hand Smoke Exposure: Yes - Caffeine Use Caffeine Use: Reports: Coffee, Soda Caffeine Use Comment: 2 cups a day - Recreational Drug Use Recreational Drug Use: Yes Recreational Drug Type: Reports: Marijuana/Hashish (daily use, last time this morning for chronic pain management.) - Living Situation & Occupation Living situation: Reports: , with Spouse Occupation: Unemployed H&P Review of Systems - Review of Systems: Review Of Systems: See Below General: Reports: No Symptoms HEENT: Reports: No Symptoms Pulmonary: Reports: Shortness of Breath (with exertion) Cardiovascular: Reports: No Symptoms Gastrointestinal: Reports: No Symptoms Genitourinary: Reports: No Symptoms Musculoskeletal: Reports: Joint Pain Skin: Reports: No Symptoms Exam - Exam Exam: See Below - Vital Signs Vital Signs: Last Vital Signs Temp 97.1 F 12/02/20 12:05 Pulse 97 12/02/20 13:01 Resp 16 12/02/20 13:01 BP 133/61 12/02/20 13:01 Pulse Ox 98 12/02/20 13:01 Weight: 58.513 kg - Exam General: Alert, Oriented, Cooperative Lungs: Clear to Auscultation, Normal Respiratory Effort Cardiovascular: Regular Rate, Regular Rhythm, Normal S1, Normal S2 GI/Abdominal Exam: Soft, Non-Tender, No Organomegaly, No Distention - Patient Data Lab Results Last 24 hrs: Laboratory Results - last 24 hr 12/02/20 12/02/20 12/02/20 Range/Units 10:05 10:05 10:55 WBC 9.00 (3.98-10.04) K/mm3 RBC 4.71 (3.98-5.22) M/mm3 Hgb 13.7 D (11.2-15.7) gm/dl Hct 40.0 (34.1-44.9) % MCV 84.9 (79.4-94.8) fl MCH 29.1 (25.6-32.2) pg MCHC 34.3 (32.2-35.5) g/dl RDW Std Deviation 49.2 H (36.4-46.3) fL Plt Count 177 L (182-369) K/mm3 MPV 10.7 (9.4-12.3) fl Neut % (Auto) 63.4 (34.0-71.1) % Lymph % (Auto) 23.6 (19.3-51.7) % [place] % (Auto) 9.8 (4.7-12.5) % Eos % (Auto) 0.8 (0.7-5.8) Baso % (Auto) 2.2 H (0.1-1.2) % Neut # (Auto) 5.71 (1.56-6.13) K/mm3 Lymph # (Auto) 2.12 (1.18-3.74) K/mm3 [place] # (Auto) 0.88 H (0.24-0.36) K/mm3 Eos # (Auto) 0.07 (0.04-0.36) K/mm3 Baso # (Auto) 0.20 H (0.01-0.08) K/mm3 Manual Slide Review Normal smear Sodium 139 (136-145) mEq/L Potassium 4.2 (3.5-5.1) mEq/L Chloride 104 (98-107) mEq/L Carbon Dioxide 23 (21-32) mEq/L Anion Gap 16.2 H (5-15) BUN 14 (7-18) mg/dL Creatinine 1.2 H (0.55-1.02) mg/dL Est Cr Clr Drug Dosing 34.47 mL/min Estimated GFR (MDRD) 45 (>60) mL/min BUN/Creatinine Ratio 11.7 L (14-18) Glucose 128 H (80-115) mg/dL Calcium 9.7 (8.5-10.1) mg/dL Total Bilirubin 0.4 (0.2-1.0) mg/dL AST 13 L (15-37) U/L ALT 21 (14-59) U/L Alkaline Phosphatase 79 (46-116) U/L Total Protein 7.9 (6.4-8.2) g/dl Albumin 4.4 (3.4-5.0) g/dl Globulin 3.5 gm/dL Albumin/Globulin Ratio 1.3 (1-2) SARS-CoV-2 RNA ([facility]BETH) Negative (NEGATIVE) Result Diagrams: 12/02/20 10:05 12/02/20 10:05 Sepsis Event Note - Evaluation Sepsis Screening Result: No Definite Risk - Focused Exam Vital Signs: Vital Signs Temp Pulse Resp BP Pulse Ox Pulse Ox 12/02/20 13:01 97 16 133/61 98 12/02/20 12:48 97 12/02/20 12:05 97.1 F 82 18 138/80 96 12/02/20 09:40 97.1 F 82 16 131/88 96 Problem List Initiated/Reviewed/Updated: No Orders Last 24hrs: Active Orders 24 hr Category Date Time Status Admission Status [Patient Status] [ADT] Routine ADT 12/02/20 12:15 Active EKG Documentation Completion [RC] STAT Care 12/02/20 10:47 Active RT Aerosol Therapy [RC] ASDIRECTED Care 12/02/20 12:48 Active Albuterol [Proventil Neb Soln] Med 12/02/20 13:30 Once 2.5 mg NEB ONETIME ONE Lactated Ringers [Ringers, Lactated] 1,000 ml Med 12/02/20 10:00 Active IV ASDIRECTED Sodium Chloride 0.9% [Saline Flush] Med 12/02/20 10:00 Active 10 ml FLUSH ONETIME PRN Schedule Procedure [COMM] Stat Oth 12/02/20 12:18 Ordered Medication Orders Albuterol (Albuterol 0.083% 2.5 Mg/3 Ml Neb Soln) 2.5 mg NEB ONETIME ONE Stop: 12/02/20 13:31 Last Admin: 12/02/20 13:02 Dose: 2.5 mg Documented by: JASON Lactated Ringer's (Ringers, Lactated) 1,000 mls @ 125 mls/hr IV ASDIRECTED JONES Last Admin: 12/02/20 10:13 Dose: 125 mls/hr Documented by: MARK Sodium Chloride (Sodium Chloride 0.9% 10 Ml Syringe) 10 ml FLUSH ONETIME PRN PRN Reason: Keep Vein Open Last Admin: 12/02/20 10:32 Dose: 10 ml Documented by: Admin: 12/02/20 10:10 Dose: 10 ml Documented by: MARK Assessment/Plan Comment:: Patient with possible residual FB in the esophagus. I recommended an EGD to evaluate the esophagus. We discussed risks, benefits and alternatives. Risks d iscussed include aspiration, bleeding, perforation. Questions were answered and informed consent was obtained.
[2020-12-02] MEDS ORDERED: Albuterol 0.083% 2.5 MG/3 ML Neb Soln NEB ONE (13:30)
[2020-12-02] MEDS ORDERED: fentaNYL 100 MCG/2 ML SDV IVPUSH PRN (14:02)
--- NOTE | 2020-12-02 14:02 | PCM.POSTAN ---
POST ANESTHESIA ASSESSMENT - MENTAL STATUS Mental Status: Alert, Oriented - VITAL SIGNS Vital Signs: Last Vital Signs Temp 36.3 C 12/02/20 13:50 Pulse 103 H 12/02/20 13:50 Resp 17 12/02/20 13:50 BP 109/45 L 12/02/20 13:50 Pulse Ox 100 12/02/20 13:50 - RESPIRATORY Respiratory Status: Respiratory Rate WNL, Airway Patent, O2 Saturation Stable - CARDIOVASCULAR CV Status: Pulse Rate WNL, Blood Pressure Stable - GASTROINTESTINAL GI Status: No Symptoms - PAIN Pain Score: 0 - POST OP HYDRATION Hydration Status: Adequate & Stable
--- NOTE | 2020-12-02 14:08 | PCM48HPAN ---
Post Anesthesia Note - EVALUATION WITHIN 48HRS OF ANESTHETIC Vital Signs in Normal Range: Yes Patient Participated in Evaluation: Yes Respiratory Function Stable: Yes Airway Patent: Yes Cardiovascular Function Stable: Yes Hydration Status Stable: Yes Pain Control Satisfactory: Yes Nausea and Vomiting Control Satisfactory: Yes Mental Status Recovered: Yes Vital Signs: Last Vital Signs Temp 36.3 C 12/02/20 13:50 Pulse 87 12/02/20 14:00 Resp 21 H 12/02/20 14:00 BP 114/61 12/02/20 14:00 Pulse Ox 93 L 12/02/20 14:00
--- NOTE | 2020-12-02 14:25 | PROC ---
DATE OF OPERATION: 12/02/2020 SURGEON: Anil Laurent MD PREOPERATIVE DIAGNOSIS: Foreign body in the esophagus. POSTOPERATIVE DIAGNOSIS: No foreign body found in the esophagus. OPERATION PERFORMED: Diagnostic esophagogastroduodenoscopy. ESTIMATED BLOOD LOSS: None. ANESTHESIA: General and endotracheal. COMPLICATIONS: None. INDICATION AND CONSENT: The patient is a 65-year-old female who was eating breakfast consisting of pork ribs this morning and swallowed a portion of the rib that had gotten stuck in her throat. The patient went to the urgent care at the doctor's office and they gave her some water to drink, was able to drink the water, but continued to have persistent feeling of a foreign body in her esophagus. The patient was sent to the emergency department, where a CT of the neck was performed, which did not reveal any foreign body. However, due to persistent symptoms of foreign body in her esophagus, we offered an EGD. We discussed the risks, benefits, and alternative of this EGD. All questions were answered. Informed consent was obtained. DETAILS OF PROCEDURE: The patient was taken to the procedure room, placed in supine position and padded appropriately. General endotracheal anesthesia was induced. Then, the patient's position was changed to left lateral decubitus and then we took Olympus scope, placed in the mouth and we evaluated the mouth. There were no foreign bodies. We went into the esophagus. We evaluated the entirety of the esophagus going down. There were no foreign bodies in the stomach. There was a residual of what appeared to be food. This was in the stomach, but there were no clear bones in the stomach. There were some whitish elongated objects that could have been cartilage and bone, but it was not confirmed. We went down to the 1st and 2nd portions of duodenum, which were normal. The stomach appears generally normal. On retroflexion, we did not appreciate any hiatal hernias. Then, I went back to the GE junction. There was mild esophagitis at the site and carefully once again we examined the entirety of the esophagus while withdrawing the scope, and we did not see any foreign bodies. Once again, we put back the camera and re-examined the esophagus going down. No foreign bodies were identified in the stomach. Again, appeared to be normal. At this point, we were satisfied that there were no foreign bodies anywhere from the mouth all the way down to the stomach. Air was suctioned out and we suctioned out all saliva that was in the stomach, and at this point we concluded the procedure. The patient was awoken, extubated, and taken to the recovery room. We will observe the patient and make sure if she can tolerate fluids prior to discharge to home. MMODAL /[id number] TAM
[2020-12-02 14:32] VITALS: BP 120/61
[2020-12-02 14:47] VITALS: PULSE 74
== END 2020-12-02 14:56 | disposition home or self-care (01) ==
LOC: SUPCPDRO 09:35 → JD.ED 09:35 → JD.SDS 12:15
PROVIDERS: ATTEND Surgery
DX: K20.90 Esophagitis, unspecified without bleeding (principal); E78.00 Pure hypercholesterolemia, unspecified; J44.9 Chronic obstructive pulmonary disease, unspecified; E66.9 Obesity, unspecified; Z68.26 Body mass index [BMI] 26.0-26.9, adult; F17.210 Nicotine dependence, cigarettes, uncomplicated; Z01.812 Encounter for preprocedural laboratory examination; Z20.822 Contact with and (suspected) exposure to COVID-19; Z88.0 Allergy status to penicillin; Z88.6 Allergy status to analgesic agent; Z86.010 Personal history of colon polyps; Z87.19 Personal history of other diseases of the digestive system; Z98.890 Other specified postprocedural states
CPT/HCPCS: 36415; 43235; 70491; 80053; 85025; 87635; 93005; 94640; 96360; 96361; 99285; J0330; J1100; J2250; J2405; J2704; J3010; J7120; Q9967; 00731; 93010; 99140; U0002

== ENCOUNTER 2020-12-03 21:56 | Emergency (ER) | payer OTHER ==
[2020-12-03 22:10] VITALS: BP 138/80; PULSE 69
[2020-12-03] MEDS ORDERED: Sodium Chloride 0.9% 10 ML Syringe FLUSH PRN (22:23)
[2020-12-03] MEDS ORDERED: Ketorolac 15 MG/ML SDV IVPUSH ONE (23:53)
[2020-12-03] MEDS ORDERED: Sodium Chloride 0.9% 500 ML IV ONE (23:53)
[2020-12-03] MEDS ORDERED: Sodium Chloride 0.9% 1,000 ML ONE (23:59)
--- NOTE | 2020-12-04 00:03 | EDM.PDOC ---
ED HPI GENERAL MEDICAL PROBLEM - General Chief Complaint: Abdominal Pain Stated Complaint: back pain cough abdominal pain Time Seen by Provider: 12/03/20 22:00 Source of Information: Reports: Patient History Limitations: Reports: No Limitations - History of Present Illness INITIAL COMMENTS - FREE TEXT/NARRATIVE: The patient has come in complaining of upper abdominal pain. She describes this as a cramping sensation and she feels like there is muscle tension causing her pain. No nausea or vomiting. No fever. No other symptoms suggestive of acute illness or condition. No shortness of breath, no sweating, no radiation of the pain. She has a prescription for Flexeril and has been taking this medication 4 times a day without any relief. The patient had upper endoscopy on the previous day. This was done because she thought she had a bone or some other ingested food item in her throat. CT was negative. She had upper endoscopy which was negative for any acute condition or foreign body. There was no hiatal hernia. There was some evidence of mild gastritis distal esophagus. This was done under general endotracheal anesthesia. Risk factors consist of hypertension and cigarette smoking. Bilateral Upper Abdomen Pain Score (Numeric/FACES): 9 - Related Data Allergies Allergy/AdvReac Type Severity Reaction Status Date / Time codeine Allergy Mild Hives Verified 12/03/20 22:10 Penicillins Allergy Mild Hives Verified 12/03/20 22:10 bisacodyl AdvReac Vomiting Verified 12/03/20 22:10 [From Dulcolax (bisacodyl)] Home Meds: Home Meds Cyclobenzaprine [Flexeril] 10 mg PO TID PRN 12/01/19 [History] Albuterol [Ventolin HFA] 3 puff INH Q4H PRN 01/04/20 [History] Mirtazapine 15 mg PO BEDTIME 01/04/20 [History] clonazePAM [Clonazepam] 0.5 - 1 mg PO BID PRN 01/04/20 [History] Albuterol/Ipratropium [DuoNeb 3.0-0.5 MG/3 ML] 1 dose NEB QID PRN 03/11/20 [History] Dicyclomine [Bentyl] 20 mg PO QID 03/11/20 [History] Nitroglycerin [Nitrostat] 0.4 mg SL ASDIRECTED PRN 03/11/20 [History] Omeprazole Magnesium [Prilosec Otc] 20 mg PO DAILY 03/11/20 [History] Ondansetron [Ondansetron ODT] 4 mg PO Q4H PRN 03/11/20 [History] Rosuvastatin Calcium [Crestor] 40 mg PO DAILY 03/11/20 [History] Budesonide/Formoterol Fumarate [Symbicort 160-4.5 Mcg Inhaler] 2 puff INH BID 12/02/20 [History] lisinopriL [Lisinopril] 20 mg PO DAILY 12/02/20 [History] Past Medical History HEENT History: Reports: Impaired Vision Other HEENT History: wears glasses, missing teeth with one loose Cardiovascular History: Reports: High Cholesterol Other Cardiovascular History: states has NTG available for chest pain, no other cardiac Hx. 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 Endocrine/Metabolic History: Reports: Obesity/BMI 30+ Hematologic History: Reports: None Immunologic History: Reports: None Oncologic (Cancer) History: Reports: None Dermatologic History: Reports: None - Infectious Disease History Infectious Disease History: Reports: Hepatitis C Other Infectious Disease History: past history - Past Surgical History HEENT Surgical History: Reports: Oral Surgery Cardiovascular Surgical History: Reports: None Respiratory Surgical History: Reports: None GI Surgical History: Reports: Colonoscopy, EGD Female Surgical History: Reports: Tubal Ligation Endocrine Surgical History: Reports: None Neurological Surgical History: Reports: Scoliosis Musculoskeletal Surgical History: Reports: Arthroscopic Knee, Other (See Below) Other Musculoskeletal Surgeries/Procedures:: scoliosis Oncologic Surgical History: Reports: None Social & Family History - Family History Family Medical History: No Pertinent Family History - Tobacco Use Tobacco Use Status *Q: Current Every Day Tobacco User Years of Tobacco use: 40 Packs/Tins Daily: 1 - Caffeine Use Caffeine Use: Reports: Coffee, Soda Caffeine Use Comment: 2 cups a day - Recreational Drug Use Recreational Drug Use: Yes Recreational Drug Type: Reports: Marijuana/Hashish Recreational Drug Use Frequency: Monthly - Living Situation & Occupation Living situation: Reports: , with Spouse Occupation: Unemployed ED ROS GENERAL - Review of Systems Review Of Systems: Comprehensive ROS is negative, except as noted in HPI. ED EXAM, GI/ABD - Physical Exam Exam: See Below Text/Narrative:: On exam the patient is alert and in no distress. The reeks of tobacco smoke. Skin is warm and dry with normal turgor. Head normocephalic atraumatic. EOMI PERRLA. Neck is supple without jugular venous distention. Lungs are clear, breath sounds are full and equal bilaterally. Heart is regular with normal heart sounds. Abdomen is soft. There is tenderness in the upper abdomen. No guarding or rebound. Extremities, there is mild to moderate skeletal muscle wasting. There is no peripheral edema cyanosis or clubbing of the digits. Neurologically she is intact with fluent speech and no motor or sensory deficit. #1 Interpretation EKG Date: 12/04/19 Time: 22:43 Rhythm: NSR [place]: Normal P-Wave: Present QRS: Normal ST-T: Normal QT: Normal VT/PQ Interval: 108ms Comparison: No Change (On previous day.) Course - Vital Signs Text/Narrative:: The patient is receiving some IV fluids in case volume depletion is promoting cramping-like sensation in the muscle wall of the abdomen. She received 500 mL of normal saline. As the endoscopy suggested distal esophagitis, mild, Protonix 80 mg given IV. Patient is on Meprazole at home. For the pain we administered 15 mg of Toradol IV. Renal function was acceptable for this. At discharge the patient was resting quietly and comfortably dozing without any distress or discomfort at all. She is to get in touch with her primary tomorrow she is also to call the telecommunications support and let the telecommunications support know of this visit. Last Recorded V/S: Last Vital Signs Temp 35.9 C L 12/03/20 22:07 Pulse 69 12/03/20 22:07 Resp 16 12/03/20 22:07 BP 138/80 12/03/20 22:07 Pulse Ox 98 12/03/20 22:07 - Orders/Labs/Meds Orders: Active Orders 24 hr Category Date Time Status EKG Documentation Completion [RC] STAT Care 12/03/20 22:23 Active Peripheral IV Care [RC] . DIRECTED Care 12/03/20 22:25 Active Sodium Chloride 0.9% [Saline Flush] Med 12/03/20 22:23 Active 10 ml FLUSH ASDIRECTED PRN Peripheral IV Insertion Adult [OM.PC] Stat Oth 12/03/20 22:24 Ordered Medication Orders Sodium Chloride (Sodium Chloride 0.9% 10 Ml Syringe) 10 ml FLUSH ASDIRECTED PRN PRN Reason: Keep Vein Open Last Admin: 12/03/20 22:52 Dose: 10 ml Documented by: BRANDON Labs: Laboratory Tests 12/03/20 12/03/20 12/03/20 Range/Units 22:30 23:05 23:05 WBC 13.65 H (3.98-10.04) K/mm3 RBC 4.37 (3.98-5.22) M/mm3 Hgb 12.6 (11.2-15.7) gm/dl Hct 37.7 (34.1-44.9) % MCV 86.3 (79.4-94.8) fl MCH 28.8 (25.6-32.2) pg MCHC 33.4 (32.2-35.5) g/dl RDW Std Deviation 49.4 H (36.4-46.3) fL Plt Count 154 L (182-369) K/mm3 MPV 10.9 (9.4-12.3) fl Neutrophils % (Manual) 71 H (40-60) % Band Neutrophils % 0 (0-10) % Lymphocytes % (Manual) 21 (20-40) % Atypical Lymphs % 0 % Monocytes % (Manual) 6 (2-10) % Eosinophils % (Manual) 1 (0.7-5.8) % Basophils % (Manual) 1 (0.1-1.2) Platelet Estimate Adequate RBC Morph Comment Normal Sodium 143 (136-145) mEq/L Potassium 4.0 (3.5-5.1) mEq/L Chloride 107 (98-107) mEq/L Carbon Dioxide 26 (21-32) mEq/L Anion Gap 14.0 (5-15) BUN 23 H (7-18) mg/dL Creatinine 1.1 H (0.55-1.02) mg/dL Est Cr Clr Drug Dosing 37.60 mL/min Estimated GFR (MDRD) 50 (>60) mL/min BUN/Creatinine Ratio 20.9 H (14-18) Glucose 125 H (80-115) mg/dL Calcium 9.3 (8.5-10.1) mg/dL Magnesium 2.0 (1.8-2.4) mg/dl Total Bilirubin 0.3 (0.2-1.0) mg/dL AST 12 L (15-37) U/L ALT 22 (14-59) U/L Alkaline Phosphatase 67 (46-116) U/L Creatine Kinase 55 (26-192) U/L Troponin I 0.026 (0.00-0.056) ng/mL Total Protein 7.4 (6.4-8.2) g/dl Albumin 4.1 (3.4-5.0) g/dl Globulin 3.3 gm/dL Albumin/Globulin Ratio 1.2 (1-2) Amylase 70 (25-115) U/L Lipase 120 (73-393) U/L Urine Color Yellow (Yellow) Urine Appearance Clear (Clear) Urine pH 5.5 (5.0-8.0) Ur Specific [place] > or = 1.030 (1.005-1.030) Urine Protein Negative (Negative) Urine Glucose (UA) Negative (Negative) Urine Ketones Negative (Negative) Urine Occult Blood Negative (Negative) Urine Nitrite Negative (Negative) Urine Bilirubin Negative (Negative) Urine Urobilinogen 0.2 (0.2-1.0) Ur Leukocyte Esterase Negative (Negative) Meds: Medications Generic Name Dose Route Start Last Admin Trade Name Freq PRN Reason Stop Dose Admin Sodium Chloride 10 ml 12/03/20 22:23 12/03/20 22:52 Sodium Chloride 0.9% 10 Ml Syringe FLUSH 10 ml ASDIRECTED PRN Administration Keep Vein Open Discontinued Medications Generic Name Dose Route Start Last Admin Trade Name Freq PRN Reason Stop Dose Admin Sodium Chloride 500 mls @ 1,000 mls/hr 12/03/20 23:53 12/04/20 00:04 Normal Saline IV 12/04/20 00:22 1,000 mls/hr .BOLUS ONE Administration Sodium Chloride Confirm 12/03/20 23:59 12/04/20 00:05 Normal Saline Administered 12/04/20 00:00 Not Given Dose 1,000 mls @ as directed .ROUTE .STK-MED ONE Ketorolac Tromethamine 15 mg 12/03/20 23:53 12/04/20 00:04 Ketorolac 15 Mg/Ml Sdv IVPUSH 12/03/20 23:54 15 mg ONETIME ONE Administration Pantoprazole Sodium 80 mg 12/04/20 00:07 12/04/20 00:18 Pantoprazole 40 Mg Vial IVPUSH 12/04/20 00:08 80 mg BOLUS ONE Administration Departure - Departure Time of Disposition: 01:33 Disposition: Home, Self-Care 01 Condition: Good Clinical Impression: Muscle cramps, Abdominal wall pain, Esophagitis determined by endoscopy - Discharge Information Referrals: PCP,None [Primary Care Provider] - Forms: ED Department Discharge Additional Instructions: You have been seen for apparent muscle cramps of the upper abdominal muscles. Your evaluation did not reveal any serious acute problem. On endoscopy on the previous day there was some evidence of mild esophagitis and for this we gave you IV Protonix. Has some mild dehydration may be the cause of muscle cramps you have received IV fluids. For pain you have received Toradol 15 mg IV. Let your primary physician know of this visit and be seen as soon as possible. Also notify your telecommunications support of this visit for any additional suggestions and recommendations. For any increased pain fever or any symptom of acute medical illness return to the ER right away. Sepsis Event Note (ED) - Evaluation Sepsis Screening Result: No Definite Risk - Focused Exam Vital Signs: Vital Signs Temp Pulse Resp BP Pulse Ox 12/03/20 22:07 35.9 C L 69 16 138/80 98 - My Orders Last 24 Hours: My Active Orders 12/03/20 22:23 EKG Documentation Completion [RC] STAT Sodium Chloride 0.9% [Saline Flush] 10 ml FLUSH ASDIRECTED PRN 12/03/20 22:24 Peripheral IV Insertion Adult [OM.PC] Stat 12/03/20 22:25 Peripheral IV Care [RC] . DIRECTED - Assessment/Plan Last 24 Hours: My Active Orders 12/03/20 22:23 EKG Documentation Completion [RC] STAT Sodium Chloride 0.9% [Saline Flush] 10 ml FLUSH ASDIRECTED PRN 12/03/20 22:24 Peripheral IV Insertion Adult [OM.PC] Stat 12/03/20 22:25 Peripheral IV Care [RC] . DIRECTED
[2020-12-04] MEDS ORDERED: Pantoprazole 40 MG Vial IVPUSH ONE (00:07)
== END 2020-12-04 02:08 | disposition home or self-care (01) ==
LOC: JD.ED 21:56
DX: K20.90 Esophagitis, unspecified without bleeding (principal); R25.2 Cramp and spasm; E78.00 Pure hypercholesterolemia, unspecified; J44.9 Chronic obstructive pulmonary disease, unspecified; K21.9 Gastro-esophageal reflux disease without esophagitis; E66.9 Obesity, unspecified; Z68.26 Body mass index [BMI] 26.0-26.9, adult; Z72.0 Tobacco use; Z88.5 Allergy status to narcotic agent; Z88.0 Allergy status to penicillin; Z88.8 Allergy status to other drugs, medicaments and biological substances; Z79.899 Other long term (current) drug therapy
CPT/HCPCS: 36415; 80053; 81003; 82150; 82550; 83690; 83735; 84484; 85007; 85027; 93005; 96374; 96375; 99284; C9113; J1885; J7030; 93010

== ENCOUNTER 2021-08-15 08:05 | Emergency (ER) | payer OTHER ==
[2021-08-15] MEDS ORDERED: Ketorolac 60 MG/2 ML SDV IM ONE (08:36)
--- NOTE | 2021-08-15 08:42 | EDM.PDOC ---
ED HPI GENERAL MEDICAL PROBLEM - General Chief Complaint: Back Pain or Injury Stated Complaint: BACK PAIN Time Seen by Provider: 08/15/21 08:28 Source of Information: Reports: Patient History Limitations: Reports: No Limitations - History of Present Illness INITIAL COMMENTS - FREE TEXT/NARRATIVE: The patient presents with right low back pain. This started early this morning at about 2am. Her cats woke her up and then she got up and felt pain. It got worse. She has no history of injury to her back. She had trouble with back pain in the past. She does have flexeril and tried one of them and it did not help. She has no numbness or weakness. She has no bowel or bladder problems. She says the pain does go down her leg at times. Onset: Gradual Duration: Hour(s): Location: Reports: Back, Lower Extremity, Right Quality: Reports: Sharp Severity: Severe Improves with: Reports: Immobilization Worsens with: Reports: Movement Associated Symptoms: Reports: No Other Symptoms Right Lower Back Pain Score (Numeric/FACES): 6 - Related Data Allergies Allergy/AdvReac Type Severity Reaction Status Date / Time codeine Allergy Mild Hives Verified 12/03/20 22:10 Penicillins Allergy Mild Hives Verified 12/03/20 22:10 bisacodyl AdvReac Vomiting Verified 12/03/20 22:10 [From Dulcolax (bisacodyl)] Home Meds: Home Meds Cyclobenzaprine [Flexeril] 10 mg PO TID PRN 12/01/19 [History] Albuterol [Ventolin HFA] 3 puff INH Q4H PRN 01/04/20 [History] Mirtazapine 15 mg PO BEDTIME 01/04/20 [History] clonazePAM [Clonazepam] 0.5 - 1 mg PO BID PRN 01/04/20 [History] Albuterol/Ipratropium [DuoNeb 3.0-0.5 MG/3 ML] 1 dose NEB QID PRN 03/11/20 [History] Dicyclomine [Bentyl] 20 mg PO QID 03/11/20 [History] Nitroglycerin [Nitrostat] 0.4 mg SL ASDIRECTED PRN 03/11/20 [History] Omeprazole Magnesium [Prilosec Otc] 20 mg PO DAILY 03/11/20 [History] Ondansetron [Ondansetron ODT] 4 mg PO Q4H PRN 03/11/20 [History] Rosuvastatin Calcium [Crestor] 40 mg PO DAILY 03/11/20 [History] Budesonide/Formoterol Fumarate [Symbicort 160-4.5 Mcg Inhaler] 2 puff INH BID 12/02/20 [History] lisinopriL [Lisinopril] 20 mg PO DAILY 12/02/20 [History] Hydrocodone/Acetaminophen [Hydrocodone-Acetamin 5-325 mg] 1 - 2 each PO Q6H PRN #15 tablet 08/15/21 [Rx] Past Medical History HEENT History: Reports: Impaired Vision Other HEENT History: wears glasses, missing teeth with one loose Cardiovascular History: Reports: High Cholesterol Other Cardiovascular History: states has NTG available for chest pain, no other cardiac Hx. 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 Endocrine/Metabolic History: Reports: Obesity/BMI 30+ Hematologic History: Reports: None Immunologic History: Reports: None Oncologic (Cancer) History: Reports: None Dermatologic History: Reports: None - Infectious Disease History Infectious Disease History: Reports: Hepatitis C Other Infectious Disease History: past history - Past Surgical History HEENT Surgical History: Reports: Oral Surgery Cardiovascular Surgical History: Reports: None Respiratory Surgical History: Reports: None GI Surgical History: Reports: Colonoscopy, EGD Female Surgical History: Reports: Tubal Ligation Endocrine Surgical History: Reports: None Neurological Surgical History: Reports: Scoliosis Musculoskeletal Surgical History: Reports: Arthroscopic Knee, Other (See Below) Other Musculoskeletal Surgeries/Procedures:: scoliosis Oncologic Surgical History: Reports: None Social & Family History - Family History Family Medical History: No Pertinent Family History - Caffeine Use Caffeine Use: Reports: Coffee, Soda Caffeine Use Comment: 2 cups a day - Living Situation & Occupation Living situation: Reports: , with Spouse Occupation: Unemployed ED ROS GENERAL - Review of Systems Review Of Systems: See Below Constitutional: Reports: No Symptoms HEENT: Reports: No Symptoms Respiratory: Reports: No Symptoms Cardiovascular: Reports: No Symptoms Endocrine: Reports: No Symptoms GI/Abdominal: Reports: No Symptoms : Reports: No Symptoms Musculoskeletal: Reports: Back Pain (right lower back), Other (right leg pain) ED EXAM,LOWER BACK PAIN/INJURY - Physical Exam Exam: See Below Exam Limited By: No Limitations General Appearance: Alert, No Apparent Distress Ears: Normal External Exam Nose: Normal Inspection Head: Atraumatic, Normocephalic Neck: Normal Inspection Respiratory/Chest: No Respiratory Distress, Lungs Clear, Normal Breath Sounds Cardiovascular: Regular Rate, Rhythm, No Edema, No Murmur GI/Abdominal: Soft, Non-Tender, No Organomegaly, No Mass Back Exam: Other (pain upon palpation to the right lower back. Good sensation and pulses distally.) Extremities: Normal Inspection Neurological: Alert, No Motor/Sensory Deficits, Oriented x 3 Course - Vital Signs Last Recorded V/S: Last Vital Signs Temp 97.4 F 08/15/21 08:18 Pulse 75 08/15/21 08:18 Resp 14 08/15/21 08:18 BP 134/74 08/15/21 08:18 Pulse Ox 95 08/15/21 08:18 - Orders/Labs/Meds Orders: Active Orders 24 hr Category Date Time Status Ketorolac [Toradol] Med 08/15/21 08:36 Once 60 mg IM ONETIME ONE - Re-Assessments/Exams Free Text/Narrative Re-Assessment/Exam: 08/15/21 08:40 I ordered toradol 60mg IM. I will get her on some hydrocodone. Departure - Departure Time of Disposition: 08:45 Disposition: Home, Self-Care 01 Condition: Good Clinical Impression: Low back pain Qualifiers: Chronicity: acute Back pain laterality: right Sciatica presence: with sciatica Sciatica laterality: sciatica of right side Qualified Code(s): M54.41 - Lumbago with sciatica, right side - Discharge Information *PRESCRIPTION DRUG MONITORING PROGRAM REVIEWED*: Not Applicable *COPY OF PRESCRIPTION DRUG MONITORING REPORT IN PATIENT EMILY: Not Applicable Prescriptions: Hydrocodone/Acetaminophen [Hydrocodone-Acetamin 5-325 mg] 1 - 2 each PO Q6H PRN #15 tablet PRN Reason: Pain Referrals: Talia Thomson PA-C [Primary Care Provider] - 1 Week Additional Instructions: Take tylenol or motrin for pain. If that does not help, try they hydrocodone or flexeril for pain. Follow up with your provider within a week. Please return if you are worse. Sepsis Event Note (ED) - Evaluation Sepsis Screening Result: No Definite Risk - Focused Exam Vital Signs: Vital Signs Temp Pulse Resp BP Pulse Ox 08/15/21 08:18 97.4 F 75 14 134/74 95 - My Orders Last 24 Hours: My Active Orders 08/15/21 08:36 Ketorolac [Toradol] 60 mg IM ONETIME ONE - Assessment/Plan Last 24 Hours: My Active Orders 08/15/21 08:36 Ketorolac [Toradol] 60 mg IM ONETIME ONE
[2021-08-15 08:47] VITALS: BP 120/66; PULSE 72
== END 2021-08-15 09:00 | disposition home or self-care (01) ==
LOC: JD.ED 08:05
DX: M54.41 Lumbago with sciatica, right side (principal); E78.00 Pure hypercholesterolemia, unspecified; J44.9 Chronic obstructive pulmonary disease, unspecified; K21.9 Gastro-esophageal reflux disease without esophagitis; E66.9 Obesity, unspecified; Z68.25 Body mass index [BMI] 25.0-25.9, adult; Z88.5 Allergy status to narcotic agent; Z88.0 Allergy status to penicillin; Z88.8 Allergy status to other drugs, medicaments and biological substances; Z79.899 Other long term (current) drug therapy
CPT/HCPCS: 96372; 99283; J1885

== ENCOUNTER 2022-03-28 16:41 | Emergency (ER) | payer OTHER ==
[2022-03-28 17:19] VITALS: BP 163/76; PULSE 93
== END 2022-03-28 18:36 | disposition home or self-care (01) ==
LOC: JD.ED 16:41
DX: K08.89 Other specified disorders of teeth and supporting structures (principal); E78.00 Pure hypercholesterolemia, unspecified; J44.9 Chronic obstructive pulmonary disease, unspecified; F17.210 Nicotine dependence, cigarettes, uncomplicated; E66.9 Obesity, unspecified; Z68.25 Body mass index [BMI] 25.0-25.9, adult; Z88.5 Allergy status to narcotic agent; Z88.0 Allergy status to penicillin; Z88.8 Allergy status to other drugs, medicaments and biological substances
CPT/HCPCS: 99282

== ENCOUNTER 2022-06-09 01:20 | Emergency (ER) | payer OTHER ==
[2022-06-09] MEDS ORDERED: Ondansetron 4 MG/2 ML SDV ONE (02:20)
[2022-06-09] MEDS ORDERED: Sodium Chloride 0.9% 1,000 ML ONE (02:21)
[2022-06-09] MEDS ORDERED: HYDROmorphone 0.5 MG/0.5 ML Syringe ONE (02:21)
[2022-06-09] MEDS ORDERED: HYDROmorphone 0.5 MG/0.5 ML Syringe IV ONE (02:35)
[2022-06-09] MEDS ORDERED: Ondansetron 4 MG/2 ML SDV IV ONE (02:35)
[2022-06-09] MEDS ORDERED: Sodium Chloride 0.9% 1,000 ML IV ONE (02:40)
[2022-06-09 03:14] LABS: ESTIMATED GFR 63 mL/min (>60)
[2022-06-09] MEDS ORDERED: Iopamidol 612 MG/ML 100 ML Bottle IVPUSH ONE (04:22)
[2022-06-09] MEDS ORDERED: Sodium Chloride 0.9% 10 ML Syringe FLUSH ONE (04:22)
[2022-06-09 09:50] VITALS: BP 173/70; PULSE 88
== END 2022-06-09 06:18 | disposition home or self-care (01) ==
LOC: JD.ED 01:20
DX: K52.9 Noninfective gastroenteritis and colitis, unspecified (principal); K64.9 Unspecified hemorrhoids
CPT/HCPCS: 36415; 74177; 80053; 83690; 85025; 96361; 96374; 96375; 99285; J1170; J2405; J7030

== ENCOUNTER 2022-06-12 12:50 | Emergency (ER) | payer OTHER ==
[2022-06-12] MEDS ORDERED: Aspirin 81 MG Tab.Chew PO ONE (13:28)
[2022-06-12] MEDS ORDERED: Potassium Chloride 20 MEQ Tab.ER PO ONE (15:06)
[2022-06-12 15:48] VITALS: BP 149/87; PULSE 89
== END 2022-06-12 15:25 | disposition home or self-care (01) ==
LOC: JD.ED 12:50
DX: R07.89 Other chest pain (principal); J44.9 Chronic obstructive pulmonary disease, unspecified; E78.00 Pure hypercholesterolemia, unspecified; F17.210 Nicotine dependence, cigarettes, uncomplicated; E66.9 Obesity, unspecified; Z68.25 Body mass index [BMI] 25.0-25.9, adult; Z88.5 Allergy status to narcotic agent; Z88.0 Allergy status to penicillin; Z88.8 Allergy status to other drugs, medicaments and biological substances; Z79.899 Other long term (current) drug therapy
CPT/HCPCS: 36415; 71045; 80053; 84484; 85025; 85610; 85730; 93005; 99285; A9270

== ENCOUNTER 2023-05-10 08:41 | Emergency (ER) | payer MEDICAID, OTHER ==
[2023-05-10 08:53] VITALS: PULSE 72
[2023-05-10] MEDS ORDERED: Sodium Chloride 0.9% 10 ML Syringe FLUSH PRN ×2 (09:12→09:18)
[2023-05-10] MEDS ORDERED: Sodium Chloride 0.9% 1,000 ML IV STA (09:12)
[2023-05-10] MEDS ORDERED: HYDROmorphone 0.5 MG/0.5 ML Syringe IVPUSH ONE (09:13)
[2023-05-10] MEDS ORDERED: Ondansetron 4 MG/2 ML SDV IVPUSH ONE (09:13)
[2023-05-10] MEDS ORDERED: Iopamidol 612 MG/ML 100 ML Bottle IVPUSH ONE (09:18)
[2023-05-10 09:52] LABS: BASOPHILS ABSOLUTE AUTO 0.3 K/mm3 (0.0-0.2); BASOPHILS PERCENT AUTO 4.5 % (0.0-1.0); EOSINOPHILS ABSOLUTE AUTO 0.1 K/mm3 (0.0-0.4); HEMATOCRIT 36.7 % (37.0-47.0); HEMOGLOBIN 12.5 gm/dl (12.0-16.0); IMMATURE GRAN ABSOLUTE AUTO 0.02 K/mm3 (0.00-0.05); IMMATURE GRAN PERCENT AUTO 0.3 % (0.0-0.4); LYMPHOCYTES PERCENT AUTO 27.4 % (24.0-44.0); MEAN CORPUSCULAR HGB CONC 34.1 g/dl (32.0-36.0); MEAN CORPUSCULAR VOLUME 82.3 fl (83.0-99.0); MEAN PLATELET VOLUME 10.1 fl (9.4-12.3); MONOCYTES ABSOLUTE AUTO 0.7 K/mm3 (0.0-0.8); NEUTROPHILS ABSOLUTE AUTO 4.2 K/mm3 (1.8-7.7); NEUTROPHILS PERCENT AUTO 57.8 % (41.0-71.0); PLATELET COUNT,PLT 143 K/mm3 (150-400); RED BLOOD CELL COUNT 4.46 M/mm3 (4.10-5.30); WHITE BLOOD CELL COUNT,WBC 7.19 K/mm3 (3.9-11.3)
[2023-05-10 10:12] LABS: A/G RATIO 1.3 (1-2); ALBUMIN 4.4 g/dl (3.4-5.0); BILIRUBIN TOTAL 0.6 mg/dL (0.2-1.0); BUN/CREATININE RATIO 17.8 (14-18); CALCIUM 9.3 mg/dL (8.5-10.1); CREATININE 0.9 mg/dL (0.55-1.02); EST CRCL DRUG DOSING (CG) 44.76 mL/min; PROTEIN TOTAL,TP 7.9 g/dl (6.4-8.2)
[2023-05-10 11:45] LABS: APPEARANCE,URINE CLEAR (Clear); BILIRUBIN,URINE NEGATIVE (Negative); COLOR,URINE YELLOW (Yellow); GLUCOSE,URINE NEGATIVE (Negative); KETONES,URINE NEGATIVE (Negative); LEUKOCYTE ESTERASE,URINE NEGATIVE (Negative); NITRITE,URINE NEGATIVE (Negative); OCCULT BLOOD,URINE NEGATIVE (Negative); PROTEIN,URINE NEGATIVE (Negative); UROBILINOGEN,URINE 0.2 (0.2-1.0)
[2023-05-10 11:48] LABS: BACTERIA,URINE NOT SEEN /hpf (FEW); EPITHELIAL CELLS,URINE 0-5 /hpf (0-5); MUCUS,URINE NOT SEEN /hpf (FEW); RBC,URINE 0-5 /hpf (0-5); WBC,URINE 0-5 /hpf (0-5)
[2023-05-10 15:30] VITALS: BP 123/64
== END 2023-05-10 12:45 | disposition home or self-care (01) ==
LOC: JD.ED 08:41
DX: R10.30 Lower abdominal pain, unspecified (principal); J44.9 Chronic obstructive pulmonary disease, unspecified; E78.00 Pure hypercholesterolemia, unspecified; E66.9 Obesity, unspecified; F17.210 Nicotine dependence, cigarettes, uncomplicated; Z68.24 Body mass index [BMI] 24.0-24.9, adult; Z88.5 Allergy status to narcotic agent; Z88.0 Allergy status to penicillin; Z88.8 Allergy status to other drugs, medicaments and biological substances; Z79.899 Other long term (current) drug therapy
CPT/HCPCS: 36415; 74177; 80053; 81001; 83690; 85025; 96361; 96374; 96375; 99284; J1170; J2405; J3490; J7030; Q9967

== ENCOUNTER 2023-06-10 18:01 | Emergency (ER) | payer MEDICARE, MEDICAID ==
[2023-06-10 19:48] VITALS: BP 144/79; PULSE 84
== END 2023-06-10 19:35 | disposition home or self-care (01) ==
LOC: JD.ED 18:01
DX: S61.011A Laceration without foreign body of right thumb without damage to nail, initial encounter (principal); F17.210 Nicotine dependence, cigarettes, uncomplicated; E66.9 Obesity, unspecified; J44.9 Chronic obstructive pulmonary disease, unspecified; E78.00 Pure hypercholesterolemia, unspecified; Z79.899 Other long term (current) drug therapy; Z88.0 Allergy status to penicillin; Z88.5 Allergy status to narcotic agent; Z88.8 Allergy status to other drugs, medicaments and biological substances; Z68.24 Body mass index [BMI] 24.0-24.9, adult
CPT/HCPCS: 12001; 99282; 99283

== ENCOUNTER 2023-09-24 10:13 | Emergency (ER) | payer MEDICARE, OTHER, MEDICAID ==
[2023-09-24] MEDS ORDERED: Sodium Chloride 0.9% 1,000 ML IV STA (10:55)
[2023-09-24] MEDS ORDERED: Sodium Chloride 0.9% 10 ML Syringe FLUSH PRN (10:55)
[2023-09-24] MEDS ORDERED: Ondansetron 4 MG/2 ML SDV IVPUSH ONE (10:55)
[2023-09-24] MEDS ORDERED: HYDROmorphone 0.5 MG/0.5 ML Syringe IVPUSH ONE (10:56)
[2023-09-24] MEDS ORDERED: Iopamidol 612 MG/ML 100 ML Bottle IVPUSH ONE (11:36)
[2023-09-24 12:04] LABS: BASOPHILS ABSOLUTE AUTO 0.2 K/mm3 (0.0-0.2); BASOPHILS PERCENT AUTO 1.2 % (0.0-1.0); EOSINOPHILS PERCENT AUTO 0.1 % (0.0-6.0); HEMATOCRIT 35.5 % (37.0-47.0); HEMOGLOBIN 11.8 gm/dl (12.0-16.0); IMMATURE GRAN ABSOLUTE AUTO 0.12 K/mm3 (0.00-0.05); IMMATURE GRAN PERCENT AUTO 0.6 % (0.0-0.4); LYMPHOCYTES ABSOLUTE AUTO 0.8 K/mm3 (1.0-4.8); MEAN CORPUSCULAR HEMOGLOBIN 27.9 pg (28.0-32.0); MEAN CORPUSCULAR HGB CONC 33.2 g/dl (32.0-36.0); MEAN CORPUSCULAR VOLUME 83.9 fl (83.0-99.0); MEAN PLATELET VOLUME 10.1 fl (9.4-12.3); MONOCYTES ABSOLUTE AUTO 1.3 K/mm3 (0.0-0.8); MONOCYTES PERCENT AUTO 6.2 % (0.0-8.0); NEUTROPHILS ABSOLUTE AUTO 17.8 K/mm3 (1.8-7.7); NEUTROPHILS PERCENT AUTO 87.9 % (41.0-71.0); PLATELET COUNT,PLT 140 K/mm3 (150-400); RED BLOOD CELL COUNT 4.23 M/mm3 (4.10-5.30); WHITE BLOOD CELL COUNT,WBC 20.24 K/mm3 (3.9-11.3)
[2023-09-24 12:24] LABS: A/G RATIO 1.2 (1-2); ALBUMIN 4.2 g/dl (3.4-5.0); BILIRUBIN TOTAL 0.6 mg/dL (0.2-1.0); BUN/CREATININE RATIO 22.7 (14-18); CALCIUM 9.2 mg/dL (8.5-10.1); CREATININE 1.1 mg/dL (0.55-1.02); EST CRCL DRUG DOSING (CG) 36.62 mL/min; PROTEIN TOTAL,TP 7.7 g/dl (6.4-8.2)
[2023-09-24 13:39] LABS: APPEARANCE,URINE CLEAR (Clear); BILIRUBIN,URINE NEGATIVE (Negative); COLOR,URINE YELLOW (Yellow); GLUCOSE,URINE NEGATIVE (Negative); KETONES,URINE 1+ (Negative); LEUKOCYTE ESTERASE,URINE NEGATIVE (Negative); NITRITE,URINE NEGATIVE (Negative); OCCULT BLOOD,URINE NEGATIVE (Negative); PROTEIN,URINE NEGATIVE (Negative); UROBILINOGEN,URINE 0.2 (0.2-1.0)
[2023-09-24 13:45] LABS: BACTERIA,URINE FEW /hpf (FEW); EPITHELIAL CELLS,URINE 0-5 /hpf (0-5); MUCUS,URINE FEW /hpf (FEW); RBC,URINE 0-5 /hpf (0-5); WBC,URINE 0-5 /hpf (0-5)
[2023-09-24] MEDS ORDERED: cefTRIAXone 2 GM in Sodium Chloride 0.9% 100 ML IV ONE (14:22)
[2023-09-24] MEDS ORDERED: metroNIDAZOLE/Normal Saline 500 MG in Premix Bag 1 BAG IV ONE (14:30)
[2023-09-24 15:28] VITALS: BP 125/50; PULSE 93
== END 2023-09-24 15:23 | disposition home or self-care (01) ==
LOC: JD.ED 10:13
DX: K52.9 Noninfective gastroenteritis and colitis, unspecified (principal); F17.210 Nicotine dependence, cigarettes, uncomplicated; E66.9 Obesity, unspecified; E78.00 Pure hypercholesterolemia, unspecified; J44.9 Chronic obstructive pulmonary disease, unspecified; Z79.899 Other long term (current) drug therapy; Z88.5 Allergy status to narcotic agent; Z88.0 Allergy status to penicillin; Z88.8 Allergy status to other drugs, medicaments and biological substances; Z68.23 Body mass index [BMI] 23.0-23.9, adult
CPT/HCPCS: 36415; 74177; 80053; 81001; 83690; 85025; 93005; 96361; 96374; 96375; 99284; J1170; J2405; J3490; J7030; Q9967; 93010

== ENCOUNTER 2023-10-14 12:02 | Emergency (ER) | payer MEDICAID, MEDICARE, OTHER ==
[2023-10-14 12:23] VITALS: PULSE 103
[2023-10-14] MEDS: Iopamidol 612 MG/ML 100 ML Bottle IVPUSH ONE (13:03)
[2023-10-14] MEDS: Sodium Chloride 0.9% 10 ML Syringe FLUSH ONE (13:03)
[2023-10-14 13:21] LABS: BASOPHILS ABSOLUTE AUTO 0.1 K/mm3 (0.0-0.2); BASOPHILS PERCENT AUTO 1.5 % (0.0-1.0); EOSINOPHILS ABSOLUTE AUTO 0.1 K/mm3 (0.0-0.4); EOSINOPHILS PERCENT AUTO 0.5 % (0.0-6.0); HEMATOCRIT 31.4 % (37.0-47.0); HEMOGLOBIN 10.7 gm/dl (12.0-16.0); IMMATURE GRAN ABSOLUTE AUTO 0.03 K/mm3 (0.00-0.05); IMMATURE GRAN PERCENT AUTO 0.3 % (0.0-0.4); LYMPHOCYTES ABSOLUTE AUTO 0.9 K/mm3 (1.0-4.8); LYMPHOCYTES PERCENT AUTO 9.8 % (24.0-44.0); MEAN CORPUSCULAR HEMOGLOBIN 27.9 pg (28.0-32.0); MEAN CORPUSCULAR HGB CONC 34.1 g/dl (32.0-36.0); MEAN CORPUSCULAR VOLUME 81.8 fl (83.0-99.0); MEAN PLATELET VOLUME 10.4 fl (9.4-12.3); MONOCYTES ABSOLUTE AUTO 0.7 K/mm3 (0.0-0.8); MONOCYTES PERCENT AUTO 7.7 % (0.0-8.0); NEUTROPHILS ABSOLUTE AUTO 7.3 K/mm3 (1.8-7.7); NEUTROPHILS PERCENT AUTO 80.2 % (41.0-71.0); PLATELET COUNT,PLT 150 K/mm3 (150-400); RED BLOOD CELL COUNT 3.84 M/mm3 (4.10-5.30); WHITE BLOOD CELL COUNT,WBC 9.15 K/mm3 (3.9-11.3)
[2023-10-14] MEDS: Morphine 4 MG/ML Syringe IVPUSH ONE (13:35)
[2023-10-14 13:38] VITALS: BP 120/71
[2023-10-14 13:44] LABS: A/G RATIO 1.2 (1-2); ALBUMIN 3.7 g/dl (3.4-5.0); ANION GAP 13.8 (5-15); BILIRUBIN TOTAL 0.4 mg/dL (0.2-1.0); CALCIUM 8.7 mg/dL (8.5-10.1); EST CRCL DRUG DOSING (CG) 40.29 mL/min; POTASSIUM,K 3.8 mEq/L (3.5-5.1); PROTEIN TOTAL,TP 6.8 g/dl (6.4-8.2)
[2023-10-14 14:31] LABS: APPEARANCE,URINE SLT CLOUDY (Clear); BILIRUBIN,URINE NEGATIVE (Negative); COLOR,URINE YELLOW (Yellow); GLUCOSE,URINE NEGATIVE (Negative); KETONES,URINE NEGATIVE (Negative); LEUKOCYTE ESTERASE,URINE NEGATIVE (Negative); NITRITE,URINE NEGATIVE (Negative); OCCULT BLOOD,URINE NEGATIVE (Negative); PROTEIN,URINE NEGATIVE (Negative); UROBILINOGEN,URINE 0.2 (0.2-1.0)
[2023-10-15 01:01] LABS: RBC,URINE 0-5 /hpf (0-5); WBC,URINE 0-5 /hpf (0-5)
[2023-10-15 01:02] LABS: BACTERIA,URINE RARE /hpf (FEW); MUCUS,URINE NOT SEEN /hpf (FEW); SQUAMOUS EPITHELIAL CELLS,UR 0-5 /hpf (0-5)
== END 2023-10-14 14:42 | disposition home or self-care (01) ==
LOC: JD.ED 12:02
DX: K57.32 Diverticulitis of large intestine without perforation or abscess without bleeding (principal); J44.9 Chronic obstructive pulmonary disease, unspecified; E78.00 Pure hypercholesterolemia, unspecified; E66.9 Obesity, unspecified; F17.210 Nicotine dependence, cigarettes, uncomplicated; Z88.0 Allergy status to penicillin; Z88.8 Allergy status to other drugs, medicaments and biological substances; Z79.899 Other long term (current) drug therapy
CPT/HCPCS: 36415; 74177; 80053; 81001; 83605; 83690; 85025; 96374; 99284; J2270; J3490; Q9967

== ENCOUNTER 2024-01-15 17:26 | Emergency (ER) | payer MEDICARE, OTHER, MEDICAID ==
[2024-01-15] MEDS ORDERED: Sodium Chloride 0.9% 10 ML Syringe FLUSH PRN (18:29)
[2024-01-15 18:59] LABS: BASOPHILS ABSOLUTE AUTO 0.3 K/mm3 (0.0-0.2); BASOPHILS PERCENT AUTO 2.5 % (0.0-1.0); EOSINOPHILS ABSOLUTE AUTO 0.1 K/mm3 (0.0-0.4); EOSINOPHILS PERCENT AUTO 0.5 % (0.0-6.0); HEMATOCRIT 35.1 % (37.0-47.0); HEMOGLOBIN 11.9 gm/dl (12.0-16.0); IMMATURE GRAN ABSOLUTE AUTO 0.04 K/mm3 (0.00-0.05); IMMATURE GRAN PERCENT AUTO 0.3 % (0.0-0.4); LYMPHOCYTES ABSOLUTE AUTO 1.6 K/mm3 (1.0-4.8); LYMPHOCYTES PERCENT AUTO 12.7 % (24.0-44.0); MEAN CORPUSCULAR HEMOGLOBIN 27.3 pg (28.0-32.0); MEAN CORPUSCULAR HGB CONC 33.9 g/dl (32.0-36.0); MEAN CORPUSCULAR VOLUME 80.5 fl (83.0-99.0); MEAN PLATELET VOLUME 10.8 fl (9.4-12.3); MONOCYTES PERCENT AUTO 7.9 % (0.0-8.0); NEUTROPHILS ABSOLUTE AUTO 9.8 K/mm3 (1.8-7.7); NEUTROPHILS PERCENT AUTO 76.1 % (41.0-71.0); PLATELET COUNT,PLT 132 K/mm3 (150-400); RED BLOOD CELL COUNT 4.36 M/mm3 (4.10-5.30); WHITE BLOOD CELL COUNT,WBC 12.83 K/mm3 (3.9-11.3)
[2024-01-15 18:59] LABS: APPEARANCE,URINE CLEAR (Clear); BILIRUBIN,URINE 1+ (Negative); COLOR,URINE YELLOW (Yellow); GLUCOSE,URINE NEGATIVE (Negative); KETONES,URINE TRACE (Negative); LEUKOCYTE ESTERASE,URINE NEGATIVE (Negative); NITRITE,URINE NEGATIVE (Negative); OCCULT BLOOD,URINE TRACE-INTACT (Negative); PH,URINE 5.5 (5.0-8.0); PROTEIN,URINE TRACE (Negative); UROBILINOGEN,URINE 0.2 (0.2-1.0)
[2024-01-15] MEDS: Iopamidol 612 MG/ML 100 ML Bottle IVPUSH ONE (19:16)
[2024-01-15 19:39] LABS: A/G RATIO 1.3 (1-2); ALBUMIN 4.5 g/dl (3.4-5.0); BILIRUBIN TOTAL 0.9 mg/dL (0.2-1.0); BUN/CREATININE RATIO 17.8 (14-18); C-REACTIVE PROTEIN 1.51 mg/dL (<0.30); CALCIUM 9.6 mg/dL (8.5-10.1); CREATININE 0.9 mg/dL (0.55-1.02); EST CRCL DRUG DOSING (CG) 44.17 mL/min; PROTEIN TOTAL,TP 7.9 g/dl (6.4-8.2)
[2024-01-15] MEDS: Sodium Chloride 0.9% 10 ML Syringe FLUSH PRN (19:57)
[2024-01-15 20:12] LABS: BACTERIA,URINE FEW /hpf (FEW); MUCUS,URINE MANY /hpf (FEW); SQUAMOUS EPITHELIAL CELLS,UR 0-5 /hpf (0-5); WBC,URINE 0-5 /hpf (0-5)
[2024-01-15] MEDS: Ondansetron 4 MG/2 ML SDV IVPUSH ONE (20:28)
[2024-01-15 20:30] VITALS: BP 141/94; PULSE 91
[2024-01-15] MEDS: Ondansetron 4 MG Tab.DIS PO ONE (20:49)
[2024-01-15] MEDS: HYDROmorphone 0.5 MG/0.5 ML Syringe IVPUSH ONE (20:49)
[2024-01-15] MEDS: Sodium Chloride 0.9% 1,000 ML IV STA (20:49)
[2024-01-15] MEDS: Acetaminophen/HYDROcodone 325-5 MG Tab PO ONE (20:58)
[2024-01-15] MEDS: metroNIDAZOLE 500 MG Tab PO ONE (21:28)
[2024-01-15] MEDS: Levofloxacin 500 MG Tab PO ONE (21:28)
== END 2024-01-15 21:20 | disposition home or self-care (01) ==
LOC: JD.ED 17:26
DX: K57.92 Diverticulitis of intestine, part unspecified, without perforation or abscess without bleeding (principal); J44.9 Chronic obstructive pulmonary disease, unspecified; E78.00 Pure hypercholesterolemia, unspecified; E66.9 Obesity, unspecified; Z79.899 Other long term (current) drug therapy; Z88.5 Allergy status to narcotic agent; Z88.0 Allergy status to penicillin; Z88.8 Allergy status to other drugs, medicaments and biological substances
CPT/HCPCS: 36415; 74177; 80053; 81001; 85025; 86140; 96374; 99284; A9270; J2405; J3490; Q9967

== ENCOUNTER 2024-05-11 15:06 | Emergency (ER) | payer MEDICARE, OTHER, MEDICAID ==
[2024-05-11 17:53] LABS: BASOPHILS ABSOLUTE AUTO 0.2 K/mm3 (0.0-0.2); BASOPHILS PERCENT AUTO 3.3 % (0.0-1.0); EOSINOPHILS ABSOLUTE AUTO 0.1 K/mm3 (0.0-0.4); EOSINOPHILS PERCENT AUTO 1.5 % (0.0-6.0); HEMATOCRIT 35.9 % (37.0-47.0); HEMOGLOBIN 11.9 gm/dl (12.0-16.0); IMMATURE GRAN ABSOLUTE AUTO 0.01 K/mm3 (0.00-0.05); IMMATURE GRAN PERCENT AUTO 0.1 % (0.0-0.4); LYMPHOCYTES ABSOLUTE AUTO 1.8 K/mm3 (1.0-4.8); LYMPHOCYTES PERCENT AUTO 27.2 % (24.0-44.0); MEAN CORPUSCULAR HEMOGLOBIN 27.2 pg (28.0-32.0); MEAN CORPUSCULAR HGB CONC 33.1 g/dl (32.0-36.0); MEAN CORPUSCULAR VOLUME 82.2 fl (83.0-99.0); MEAN PLATELET VOLUME 10.5 fl (9.4-12.3); MONOCYTES ABSOLUTE AUTO 0.5 K/mm3 (0.0-0.8); MONOCYTES PERCENT AUTO 7.5 % (0.0-8.0); NEUTROPHILS PERCENT AUTO 60.4 % (41.0-71.0); PLATELET COUNT,PLT 143 K/mm3 (150-400); RED BLOOD CELL COUNT 4.37 M/mm3 (4.10-5.30); WHITE BLOOD CELL COUNT,WBC 6.68 K/mm3 (3.9-11.3)
[2024-05-11 17:57] LABS: INR 1.03; PROTHROMBIN TIME 10.9 SECONDS (9.7-12.0)
[2024-05-11 17:58] LABS: PTT,PARTIAL THROMBOPLSTIN TIME 26.9 SECONDS (21.7-31.4)
[2024-05-11 18:08] LABS: A/G RATIO 1.4 (1-2); ALANINE AMINOTRANSFERASE,ALT 15 U/L (14-59); ALBUMIN 4.5 g/dl (3.4-5.0); ALKALINE PHOSPHATASE 73 U/L (46-116); ANION GAP 16.1 (5-15); ASPARTATE AMNIOTRANSFERASE,AST 11 U/L (15-37); BILIRUBIN TOTAL 0.4 mg/dL (0.2-1.0); BLOOD UREA NITROGEN,BUN 24 mg/dL (7-18); BUN/CREATININE RATIO 26.7 (14-18); CALCIUM 9.3 mg/dL (8.5-10.1); CARBON DIOXIDE,CO2 24 mEq/L (21-32); CHLORIDE,CL 105 mEq/L (98-107); CREATININE 0.9 mg/dL (0.55-1.02); ESTIMATED GFR 71 mL/min (>60); GLUCOSE RANDOM 90 mg/dL (70-99); POTASSIUM,K 4.1 mEq/L (3.5-5.1); PROTEIN TOTAL,TP 7.8 g/dl (6.4-8.2); SODIUM,NA 141 mEq/L (136-145)
[2024-05-12 02:56] VITALS: BP 142/99; PULSE 73
== END 2024-05-11 19:55 | disposition home or self-care (01) ==
LOC: JD.ED 15:06
DX: R23.3 Spontaneous ecchymoses (principal); E78.00 Pure hypercholesterolemia, unspecified; E66.9 Obesity, unspecified; Z79.899 Other long term (current) drug therapy; Z88.0 Allergy status to penicillin; Z88.5 Allergy status to narcotic agent; Z88.8 Allergy status to other drugs, medicaments and biological substances
CPT/HCPCS: 36415; 80053; 85025; 85610; 85730; 99283

== ENCOUNTER 2024-10-04 12:59 | Emergency (ER) | payer MEDICARE, OTHER, MEDICAID ==
[2024-10-04 14:12] LABS: APPEARANCE,URINE CLEAR (Clear); BILIRUBIN,URINE NEGATIVE (Negative); COLOR,URINE YELLOW (Yellow); GLUCOSE,URINE NEGATIVE (Negative); KETONES,URINE NEGATIVE (Negative); LEUKOCYTE ESTERASE,URINE NEGATIVE (Negative); NITRITE,URINE NEGATIVE (Negative); OCCULT BLOOD,URINE TRACE-LYSED (Negative); PH,URINE 5.5 (5.0-8.0); PROTEIN,URINE NEGATIVE (Negative); UROBILINOGEN,URINE 0.2 (0.2-1.0)
[2024-10-04] MEDS: Ondansetron 4 MG/2 ML SDV IVPUSH ONE (14:20)
[2024-10-04] MEDS: HYDROmorphone 0.5 MG/0.5 ML Syringe IVPUSH ONE (14:22)
[2024-10-04 14:24] LABS: BACTERIA,URINE FEW /hpf (FEW); MUCUS,URINE MODERATE /hpf (FEW); WBC,URINE 0-5 /hpf (0-5)
[2024-10-04] MEDS: Sodium Chloride 0.9% 1,000 ML IV STA (14:24)
[2024-10-04] MEDS: Sodium Chloride 0.9% 10 ML Syringe FLUSH PRN (14:24)
[2024-10-04 14:29] LABS: BASOPHILS ABSOLUTE AUTO 0.2 K/mm3 (0.0-0.2); BASOPHILS PERCENT AUTO 1.2 % (0.0-1.0); EOSINOPHILS ABSOLUTE AUTO 0.1 K/mm3 (0.0-0.4); EOSINOPHILS PERCENT AUTO 0.6 % (0.0-6.0); HEMATOCRIT 32.2 % (37.0-47.0); HEMOGLOBIN 10.9 gm/dl (12.0-16.0); IMMATURE GRAN ABSOLUTE AUTO 0.05 K/mm3 (0.00-0.05); IMMATURE GRAN PERCENT AUTO 0.4 % (0.0-0.4); LYMPHOCYTES ABSOLUTE AUTO 1.7 K/mm3 (1.0-4.8); LYMPHOCYTES PERCENT AUTO 12.9 % (24.0-44.0); MEAN CORPUSCULAR HEMOGLOBIN 26.7 pg (28.0-32.0); MEAN CORPUSCULAR HGB CONC 33.9 g/dl (32.0-36.0); MEAN CORPUSCULAR VOLUME 78.7 fl (83.0-99.0); MEAN PLATELET VOLUME 10.8 fl (9.4-12.3); MONOCYTES ABSOLUTE AUTO 1.4 K/mm3 (0.0-0.8); MONOCYTES PERCENT AUTO 10.3 % (0.0-8.0); NEUTROPHILS ABSOLUTE AUTO 9.8 K/mm3 (1.8-7.7); NEUTROPHILS PERCENT AUTO 74.6 % (41.0-71.0); PLATELET COUNT,PLT 150 K/mm3 (150-400); RED BLOOD CELL COUNT 4.09 M/mm3 (4.10-5.30); WHITE BLOOD CELL COUNT,WBC 13.13 K/mm3 (3.9-11.3)
[2024-10-04 14:51] LABS: A/G RATIO 1.3 (1-2); ALBUMIN 4.3 g/dl (3.4-5.0); ANION GAP 12.9 (5-15); BILIRUBIN TOTAL 0.7 mg/dL (0.2-1.0); EST CRCL DRUG DOSING (CG) 39.75 mL/min; POTASSIUM,K 3.9 mEq/L (3.5-5.1); PROTEIN TOTAL,TP 7.7 g/dl (6.4-8.2)
[2024-10-04 16:19] VITALS: BP 122/66; PULSE 86
== END 2024-10-04 16:30 | disposition home or self-care (01) ==
LOC: JD.ED 12:59
DX: K57.32 Diverticulitis of large intestine without perforation or abscess without bleeding (principal); I10 Essential (primary) hypertension; E78.00 Pure hypercholesterolemia, unspecified; J44.9 Chronic obstructive pulmonary disease, unspecified; E66.9 Obesity, unspecified; F17.210 Nicotine dependence, cigarettes, uncomplicated; Z68.23 Body mass index [BMI] 23.0-23.9, adult; Z88.0 Allergy status to penicillin; Z88.5 Allergy status to narcotic agent; Z88.8 Allergy status to other drugs, medicaments and biological substances; Z79.51 Long term (current) use of inhaled steroids; Z79.899 Other long term (current) drug therapy
CPT/HCPCS: 36415; 74176; 80053; 81001; 83690; 85025; 96361; 96374; 96375; 99284; J2405; J7030

== ENCOUNTER 2024-10-16 10:29 | Emergency (ER) | payer MEDICARE, OTHER, MEDICAID ==
[2024-10-16 10:52] VITALS: BP 111/76; PULSE 91
[2024-10-16] MEDS: Sodium Chloride 0.9% 1,000 ML IV ONE (11:12)
[2024-10-16] MEDS: Ondansetron 4 MG/2 ML SDV IVPUSH ONE ×2 (11:15)
[2024-10-16 11:19] LABS: BASOPHILS PERCENT AUTO 1.1 % (0.0-1.0); EOSINOPHILS PERCENT AUTO 0.7 % (0.0-6.0); HEMATOCRIT 30.7 % (37.0-47.0); HEMOGLOBIN 10.1 gm/dl (12.0-16.0); IMMATURE GRAN ABSOLUTE AUTO 0.01 K/mm3 (0.00-0.05); IMMATURE GRAN PERCENT AUTO 0.4 % (0.0-0.4); LYMPHOCYTES ABSOLUTE AUTO 0.5 K/mm3 (1.0-4.8); LYMPHOCYTES PERCENT AUTO 18.4 % (24.0-44.0); MEAN CORPUSCULAR HEMOGLOBIN 26.3 pg (28.0-32.0); MEAN CORPUSCULAR HGB CONC 32.9 g/dl (32.0-36.0); MEAN CORPUSCULAR VOLUME 79.9 fl (83.0-99.0); MONOCYTES ABSOLUTE AUTO 0.5 K/mm3 (0.0-0.8); MONOCYTES PERCENT AUTO 18.8 % (0.0-8.0); NEUTROPHILS ABSOLUTE AUTO 1.7 K/mm3 (1.8-7.7); NEUTROPHILS PERCENT AUTO 60.6 % (41.0-71.0); PLATELET COUNT,PLT 55 K/mm3 (150-400); RED BLOOD CELL COUNT 3.84 M/mm3 (4.10-5.30); WHITE BLOOD CELL COUNT,WBC 2.72 K/mm3 (3.9-11.3)
[2024-10-16 11:45] LABS: A/G RATIO 1.2 (1-2); ALBUMIN 3.9 g/dl (3.4-5.0); ANION GAP 13.2 (5-15); BILIRUBIN TOTAL 0.4 mg/dL (0.2-1.0); BUN/CREATININE RATIO 22.7 (14-18); CALCIUM 8.9 mg/dL (8.5-10.1); CREATININE 1.1 mg/dL (0.55-1.02); EST CRCL DRUG DOSING (CG) 36.14 mL/min; MAGNESIUM 1.8 mg/dL (1.8-2.4); POTASSIUM,K 3.2 mEq/L (3.5-5.1); PROTEIN TOTAL,TP 7.2 g/dl (6.4-8.2)
[2024-10-16 12:07] LABS: SLIDE REVIEW ABNORMAL SMEAR
[2024-10-16] MEDS: Potassium Chloride 20 MEQ Tab.ER PO ONE (12:35)
== END 2024-10-16 12:45 | disposition home or self-care (01) ==
LOC: JD.ED 10:29
DX: E86.0 Dehydration (principal); E87.6 Hypokalemia; D61.818 Other pancytopenia; I10 Essential (primary) hypertension; E78.00 Pure hypercholesterolemia, unspecified; Z88.5 Allergy status to narcotic agent; Z88.0 Allergy status to penicillin; Z88.8 Allergy status to other drugs, medicaments and biological substances; Z79.51 Long term (current) use of inhaled steroids; Z79.899 Other long term (current) drug therapy; Z87.19 Personal history of other diseases of the digestive system
CPT/HCPCS: 36415; 71045; 71045-26; 80053; 82550; 83690; 83735; 84484; 85025; 87428-QW; 93005; 93010; 96361; 96374; 99284; 99285-25; A9270-GY; J2405; J7030

== ENCOUNTER 2024-10-22 09:09 | Emergency (ER) | payer MEDICARE, OTHER, MEDICAID ==
[2024-10-22 10:14] LABS: BASOPHILS PERCENT AUTO 0.7 % (0.0-1.0); EOSINOPHILS PERCENT AUTO 0.5 % (0.0-6.0); HEMATOCRIT 28.7 % (37.0-47.0); HEMOGLOBIN 9.6 gm/dl (12.0-16.0); IMMATURE GRAN ABSOLUTE AUTO 0.04 K/mm3 (0.00-0.05); LYMPHOCYTES ABSOLUTE AUTO 0.7 K/mm3 (1.0-4.8); LYMPHOCYTES PERCENT AUTO 15.6 % (24.0-44.0); MEAN CORPUSCULAR HEMOGLOBIN 26.4 pg (28.0-32.0); MEAN CORPUSCULAR HGB CONC 33.4 g/dl (32.0-36.0); MEAN CORPUSCULAR VOLUME 78.8 fl (83.0-99.0); MONOCYTES ABSOLUTE AUTO 0.3 K/mm3 (0.0-0.8); MONOCYTES PERCENT AUTO 7.9 % (0.0-8.0); NEUTROPHILS ABSOLUTE AUTO 3.1 K/mm3 (1.8-7.7); NEUTROPHILS PERCENT AUTO 74.3 % (41.0-71.0); PLATELET COUNT,PLT 87 K/mm3 (150-400); RED BLOOD CELL COUNT 3.64 M/mm3 (4.10-5.30); WHITE BLOOD CELL COUNT,WBC 4.18 K/mm3 (3.9-11.3)
[2024-10-22 10:25] LABS: ALBUMIN 3.8 g/dl (3.4-5.0); ANION GAP 16.3 (5-15); BILIRUBIN TOTAL 1.1 mg/dL (0.2-1.0); CALCIUM 9.3 mg/dL (8.5-10.1); CREATININE 0.9 mg/dL (0.55-1.02); EST CRCL DRUG DOSING (CG) 44.17 mL/min; POTASSIUM,K 3.3 mEq/L (3.5-5.1); PROTEIN TOTAL,TP 7.5 g/dl (6.4-8.2)
[2024-10-22] MEDS: Sodium Chloride 0.9% 10 ML Syringe FLUSH PRN (11:36)
[2024-10-22] MEDS: Iopamidol 755 Mg/ML 100 ML Bottle IVPUSH ONE (11:36)
[2024-10-22] MEDS: Sodium Chloride 0.9% 100 ML IV SCH (11:36)
[2024-10-22 11:53] LABS: SLIDE REVIEW ABNORMAL SMEAR
[2024-10-22] MEDS: Lactated Ringers 1,000 ML IV ONE (12:17)
[2024-10-22 13:36] VITALS: BP 160/86; PULSE 92
== END 2024-10-22 13:24 | disposition home or self-care (01) ==
LOC: JD.ED 09:09
DX: K59.00 Constipation, unspecified (principal); I10 Essential (primary) hypertension; E78.00 Pure hypercholesterolemia, unspecified; J44.9 Chronic obstructive pulmonary disease, unspecified; E66.9 Obesity, unspecified; F17.210 Nicotine dependence, cigarettes, uncomplicated; Z68.22 Body mass index [BMI] 22.0-22.9, adult; Z88.0 Allergy status to penicillin; Z88.5 Allergy status to narcotic agent; Z88.8 Allergy status to other drugs, medicaments and biological substances; Z79.51 Long term (current) use of inhaled steroids; Z79.899 Other long term (current) drug therapy
CPT/HCPCS: 36415; 71045; 71045-26; 72191; 72191-26; 74175; 74175-26; 80053; 82272; 84484; 85025; 86850; 86900; 86901; 87428-QW; 93005; 93010; 96360; 99284; 99285-25; J7120; Q9967

== ENCOUNTER 2024-12-20 13:45 | Emergency (ER) | payer MEDICARE, OTHER, MEDICAID ==
[2024-12-20] MEDS ORDERED: Sodium Chloride 0.9% 10 ML Syringe FLUSH PRN (14:08)
[2024-12-20 14:10] VITALS: BP 100/78; PULSE 96
[2024-12-20 15:07] LABS: BASOPHILS ABSOLUTE AUTO 0.1 K/mm3 (0.0-0.2); BASOPHILS PERCENT AUTO 2.9 % (0.0-1.0); EOSINOPHILS ABSOLUTE AUTO 0.1 K/mm3 (0.0-0.4); EOSINOPHILS PERCENT AUTO 1.5 % (0.0-6.0); HEMATOCRIT 28.5 % (37.0-47.0); HEMOGLOBIN 9.4 gm/dl (12.0-16.0); IMMATURE GRAN ABSOLUTE AUTO 0.01 K/mm3 (0.00-0.05); IMMATURE GRAN PERCENT AUTO 0.2 % (0.0-0.4); LYMPHOCYTES ABSOLUTE AUTO 1.4 K/mm3 (1.0-4.8); LYMPHOCYTES PERCENT AUTO 31.4 % (24.0-44.0); MEAN CORPUSCULAR HEMOGLOBIN 27.1 pg (28.0-32.0); MEAN CORPUSCULAR VOLUME 82.1 fl (83.0-99.0); MONOCYTES ABSOLUTE AUTO 0.3 K/mm3 (0.0-0.8); MONOCYTES PERCENT AUTO 7.1 % (0.0-8.0); NEUTROPHILS ABSOLUTE AUTO 2.6 K/mm3 (1.8-7.7); NEUTROPHILS PERCENT AUTO 56.9 % (41.0-71.0); PLATELET COUNT,PLT 113 K/mm3 (150-400); RED BLOOD CELL COUNT 3.47 M/mm3 (4.10-5.30); WHITE BLOOD CELL COUNT,WBC 4.52 K/mm3 (3.9-11.3)
[2024-12-20] MEDS: Sodium Chloride 0.9% 1,000 ML IV SCH (15:07)
[2024-12-20 15:38] LABS: A/G RATIO 1.4 (1-2); ALANINE AMINOTRANSFERASE,ALT 21 U/L (14-59); ALBUMIN 4.4 g/dl (3.4-5.0); ALKALINE PHOSPHATASE 62 U/L (46-116); ANION GAP 14.1 (5-15); ASPARTATE AMNIOTRANSFERASE,AST 10 U/L (15-37); BILIRUBIN TOTAL 0.5 mg/dL (0.2-1.0); BLOOD UREA NITROGEN,BUN 16 mg/dL (7-18); BUN/CREATININE RATIO 17.8 (14-18); CALCIUM 9.2 mg/dL (8.5-10.1); CARBON DIOXIDE,CO2 25 mEq/L (21-32); CHLORIDE,CL 103 mEq/L (98-107); CREATININE 0.9 mg/dL (0.55-1.02); EST CRCL DRUG DOSING (CG) 43.57 mL/min; ESTIMATED GFR 70 mL/min (>60); GLUCOSE RANDOM 93 mg/dL (70-99); POTASSIUM,K 4.1 mEq/L (3.5-5.1); PROTEIN TOTAL,TP 7.6 g/dl (6.4-8.2); SODIUM,NA 138 mEq/L (136-145); TROPONIN I HIGH SENSITIVITY 4 pg/mL (<=51)
[2024-12-20 15:39] LABS: C-REACTIVE PROTEIN < 0.05 mg/dL (<0.30)
== END 2024-12-20 17:00 | disposition home or self-care (01) ==
LOC: JD.ED 13:45
DX: R42 Dizziness and giddiness (principal); R00.2 Palpitations; I10 Essential (primary) hypertension; E78.00 Pure hypercholesterolemia, unspecified; E66.9 Obesity, unspecified; F17.210 Nicotine dependence, cigarettes, uncomplicated; Z88.0 Allergy status to penicillin; Z88.6 Allergy status to analgesic agent; Z88.8 Allergy status to other drugs, medicaments and biological substances; Z79.899 Other long term (current) drug therapy
CPT/HCPCS: 36415; 80053; 83735; 84443; 84484; 85025; 86140; 93005; 93010; 93246; 96360; 96361; 99283; 99285-25; J7030

== ENCOUNTER 2025-02-18 22:22 | Emergency (ER) | payer MEDICARE, OTHER, MEDICAID ==
[2025-02-18 23:05] VITALS: BP 173/74; PULSE 113
[2025-02-19 00:05] LABS: BASOPHILS ABSOLUTE AUTO 0.2 K/mm3 (0.0-0.2); BASOPHILS PERCENT AUTO 1.2 % (0.0-1.0); EOSINOPHILS ABSOLUTE AUTO 0.1 K/mm3 (0.0-0.4); EOSINOPHILS PERCENT AUTO 0.7 % (0.0-6.0); HEMATOCRIT 31.7 % (37.0-47.0); HEMOGLOBIN 10.4 gm/dl (12.0-16.0); IMMATURE GRAN ABSOLUTE AUTO 0.07 K/mm3 (0.00-0.05); IMMATURE GRAN PERCENT AUTO 0.5 % (0.0-0.4); LYMPHOCYTES ABSOLUTE AUTO 1.4 K/mm3 (1.0-4.8); LYMPHOCYTES PERCENT AUTO 9.8 % (24.0-44.0); MEAN CORPUSCULAR HEMOGLOBIN 27.3 pg (28.0-32.0); MEAN CORPUSCULAR HGB CONC 32.8 g/dl (32.0-36.0); MEAN CORPUSCULAR VOLUME 83.2 fl (83.0-99.0); MONOCYTES ABSOLUTE AUTO 1.4 K/mm3 (0.0-0.8); MONOCYTES PERCENT AUTO 10.1 % (0.0-8.0); NEUTROPHILS ABSOLUTE AUTO 10.9 K/mm3 (1.8-7.7); NEUTROPHILS PERCENT AUTO 77.7 % (41.0-71.0); PLATELET COUNT,PLT 116 K/mm3 (150-400); RED BLOOD CELL COUNT 3.81 M/mm3 (4.10-5.30); WHITE BLOOD CELL COUNT,WBC 14.02 K/mm3 (3.9-11.3)
[2025-02-19] MEDS: Sodium Chloride 0.9% 500 ML IV ONE (00:16)
[2025-02-19] MEDS: Ketorolac 15 MG/ML SDV IVPUSH ONE (00:16)
[2025-02-19] MEDS: Sodium Chloride 0.9% 10 ML Syringe FLUSH PRN (00:18)
[2025-02-19 00:22] LABS: A/G RATIO 1.1 (1-2); ALBUMIN 3.7 g/dl (3.4-5.0); ANION GAP 11.7 (5-15); BILIRUBIN TOTAL 0.7 mg/dL (0.2-1.0); BUN/CREATININE RATIO 12.9 (14-18); CALCIUM 9.4 mg/dL (8.5-10.1); CREATININE 0.7 mg/dL (0.55-1.02); EST CRCL DRUG DOSING (CG) 56.02 mL/min; POTASSIUM,K 3.7 mEq/L (3.5-5.1); PROTEIN TOTAL,TP 7.1 g/dl (6.4-8.2)
[2025-02-19 00:41] LABS: APPEARANCE,URINE CLEAR (Clear); BILIRUBIN,URINE NEGATIVE (Negative); COLOR,URINE YELLOW (Yellow); GLUCOSE,URINE NEGATIVE (Negative); KETONES,URINE 1+ (Negative); LEUKOCYTE ESTERASE,URINE NEGATIVE (Negative); NITRITE,URINE NEGATIVE (Negative); OCCULT BLOOD,URINE TRACE-INTACT (Negative); PROTEIN,URINE NEGATIVE (Negative); UROBILINOGEN,URINE 0.2 (0.2-1.0)
[2025-02-19] MEDS: Iopamidol 612 MG/ML 100 ML Bottle IVPUSH ONE (00:41)
[2025-02-19 00:55] LABS: BACTERIA,URINE FEW /hpf (FEW); EPITHELIAL CELLS,URINE 0-5 /hpf (0-5); HYALINE CASTS,URINE 0-5 /lpf (0-5); MUCUS,URINE FEW /hpf (FEW); RBC,URINE 0-5 /hpf (0-5); WBC,URINE 0-5 /hpf (0-5)
== END 2025-02-19 02:55 | disposition home or self-care (01) ==
LOC: JD.ED 22:22
DX: R10.30 Lower abdominal pain, unspecified (principal); B37.0 Candidal stomatitis; I10 Essential (primary) hypertension; E78.00 Pure hypercholesterolemia, unspecified; E66.9 Obesity, unspecified; J44.9 Chronic obstructive pulmonary disease, unspecified; Z88.5 Allergy status to narcotic agent; Z88.8 Allergy status to other drugs, medicaments and biological substances; Z88.0 Allergy status to penicillin; Z79.899 Other long term (current) drug therapy; Z68.22 Body mass index [BMI] 22.0-22.9, adult
CPT/HCPCS: 36415; 74177; 80053; 81001; 83690; 85025; 96361; 96374; 99284; J1885; J7030; Q9967; 99283

== ENCOUNTER 2025-08-07 14:39 | Emergency (ER) | payer MEDICARE, OTHER, MEDICAID ==
[2025-08-07] MEDS ORDERED: Sodium Chloride 0.9% 10 ML Syringe FLUSH PRN (15:33)
[2025-08-07 16:14] LABS: BASOPHILS ABSOLUTE AUTO 0.3 K/mm3 (0.0-0.2); BASOPHILS PERCENT AUTO 1.5 % (0.0-1.0); EOSINOPHILS ABSOLUTE AUTO 0.2 K/mm3 (0.0-0.4); EOSINOPHILS PERCENT AUTO 1.0 % (0.0-6.0); IMMATURE GRAN ABSOLUTE AUTO 0.07 K/mm3 (0.00-0.05); IMMATURE GRAN PERCENT AUTO 0.4 % (0.0-0.4); LYMPHOCYTES ABSOLUTE AUTO 1.6 K/mm3 (1.0-4.8); LYMPHOCYTES PERCENT AUTO 9.5 % (24.0-44.0); MEAN PLATELET VOLUME 10.4 fl (9.4-12.3); MONOCYTES ABSOLUTE AUTO 1.9 K/mm3 (0.0-0.8); MONOCYTES PERCENT AUTO 11.6 % (0.0-8.0); NEUTROPHILS ABSOLUTE AUTO 12.7 K/mm3 (1.8-7.7); NEUTROPHILS PERCENT AUTO 76.0 % (41.0-71.0); NRBC ABSOLUTE 0.00 (0.00-0.02); NRBC PERCENT 0.0 % (0.0-0.2); PLATELET COUNT,PLT 155 K/mm3 (150-400); RED BLOOD CELL COUNT 4.24 M/mm3 (4.10-5.30); WHITE BLOOD CELL COUNT,WBC 16.66 K/mm3 (3.9-11.3)
[2025-08-07 16:31] LABS: A/G RATIO 1.2 (1-2); ALANINE AMINOTRANSFERASE,ALT 15.0 U/L (14-59); ASPARTATE AMNIOTRANSFERASE,AST 10.0 U/L (15-37); BILIRUBIN TOTAL 0.4 mg/dL (0.2-1.0); BLOOD UREA NITROGEN,BUN 17.0 mg/dL (7-18); CARBON DIOXIDE,CO2 26.0 mEq/L (21-32); CHLORIDE,CL 106.0 mEq/L (98-107); CREATININE 0.8 mg/dL (0.55-1.02); EST CRCL DRUG DOSING (CG) 49.01 mL/min; ESTIMATED GFR 81.0 mL/min (>60); GLUCOSE RANDOM 119.0 mg/dL (70-99); POTASSIUM,K 3.7 mEq/L (3.5-5.1); PROTEIN TOTAL,TP 7.5 g/dl (6.4-8.2); SODIUM,NA 141.0 mEq/L (136-145)
[2025-08-07] MEDS: Iopamidol 612 MG/ML 100 ML Bottle IVPUSH ONE (17:05)
[2025-08-07] MEDS: Sodium Chloride 0.9% 10 ML Syringe FLUSH ONE (17:06)
[2025-08-07 17:51] LABS: APPEARANCE,URINE CLEAR (Clear); GLUCOSE,URINE NEGATIVE (Negative); OCCULT BLOOD,URINE NEGATIVE (Negative)
[2025-08-07] MEDS: Ketorolac 30 MG/ML SDV IVPUSH ONE (18:23)
[2025-08-07 18:44] VITALS: BP 142/79; PULSE 68
== END 2025-08-07 18:36 | disposition home or self-care (01) ==
LOC: JD.ED 14:39
DX: K57.32 Diverticulitis of large intestine without perforation or abscess without bleeding (principal); I10 Essential (primary) hypertension; E78.00 Pure hypercholesterolemia, unspecified; J44.9 Chronic obstructive pulmonary disease, unspecified; E66.9 Obesity, unspecified; F17.200 Nicotine dependence, unspecified, uncomplicated; Z68.23 Body mass index [BMI] 23.0-23.9, adult; Z88.0 Allergy status to penicillin; Z88.5 Allergy status to narcotic agent; Z88.8 Allergy status to other drugs, medicaments and biological substances; Z79.899 Other long term (current) drug therapy
CPT/HCPCS: 36415; 51798; 74177; 80053; 81003; 85025; 86140; 96374; 96375; 99284; J7030; Q9967; J1171; J1885